=== PATIENT | female | born 1960 | race Caucasian/White ===

== ENCOUNTER → 2020-11-18 06:46 | Outpatient (CLI) | payer MEDICARE, SELFPAY ==
--- NOTE | 2020-11-18 | DI.MRI.S_ITS ---
PROCEDURE: MR HIP LT WO CON INDICATIONS: LEFT HIP PAIN TECHNIQUE: Noncontrast coronal T1 spin echo and STIR through the bony pelvis. Coronal and axial T2 fast spin echo with fat saturation, sagittal T1 spin echo, and oblique axial T2 fast spin echo with fat saturation through the hip. COMPARISON: None. FINDINGS: Image quality: Excellent. Bones and joints: There is a 57 mm diameter high STIR and low T1 signal intensity focus within the left intertrochanteric femur and left femoral neck. There is a 20 mm diameter low T1 and high STIR signal intensity focus within the right posterosuperior iliac wing. Within the right mid iliac wing posteriorly, there is a 10 mm diameter low T1 and high STIR signal intensity focus. There are 2 adjacent low T1/high STIR signal intensity foci within the left posterosuperior iliac wing, measuring roughly 7 mm diameter. There is a 20 mm diameter low T1 and high STIR signal intensity focus within the right superior femoral neck. No avascular necrosis of the femoral heads. The visualized lower lumbar spine appears normally aligned. Tendons and ligaments: The gluteus medius and minimus tendons appear intact, without associated muscle atrophy. The nearby proximal iliotibial band also appears intact. The iliopsoas tendon appears intact, without adjacent bursal fluid collections or evidence for impingement syndrome. The origin of the hamstring tendon is intact at the ischial tuberosity, as well as the associated sacrotuberous ligament. The straight and reflected heads of the rectus femoris muscle origin appear intact, as well as the conjoint tendon. The ligamentum teres appears intact where visualized. Labrum and cartilage: The acetabular labrum appears intact in the absence of intra-articular contrast. Cartilage surface of the femoral head appears of normal thickness. The alpha angle of the femur is within normal limits at less than 55 degrees. Soft tissues: Moderate T2 signal elevation within the soft tissues surrounding the left femoral neck is present, consistent with reactive soft tissue edema. Visualized muscles demonstrate normal bulk and internal signal. Quadratus femoris muscle demonstrates no internal edema to suggest ischiofemoral impingement. The proximal sciatic neurovascular bundle appears normal adjacent to the hamstring tendons. No free pelvic fluid. Bladder wall thickness is normal. Genitourinary structures and bowel loops appear normal where visualized. IMPRESSION: 1. Multifocal metastatic disease to the bony pelvis and bilateral hips. The largest of these lesions is within the left intertrochanteric femur and femoral neck which is at risk for pathological fracture. Whole-body bone scan is recommended to evaluate for other sites of bony metastatic disease. Dictated by: Sedrick Ryder M.D. on 11/18/2020 at 9:15 Approved by: Sedrick Ryder M.D. on 11/18/2020 at 9:24
[2020-11-18 08:02] LABS: Add Manual Diff / Slide Review NO; Basophils Absolute Auto 0 /uL (0-100); Basophils Percent Auto 0.7 % (0-2); Eosinophils Absolute Auto 100 /uL (0-450); Hemoglobin 12.3 g/dL (12.0-16.0); Lymphocytes Absolute Auto 800 /uL (1100-4500); Lymphocytes Percent Auto 27.5 % (25-40); Mean Corpuscular HGB Conc 33.2 % (30-36); Mean Corpuscular Hemoglobin 29.8 PG (26-34); Mean Corpuscular Volume 89.6 fL (80-100); Monocytes Absolute Auto 200 /uL (0-900); Monocytes Percent Auto 7.5 % (3-14); Neutrophils Absolute Auto 1800 /uL (1500-7000); Neutrophils Percent Auto 61.3 % (50-75); Red Blood Cell Count 4.13 X10^6/uL (4.0-5.2); Red Cell Distribution Width 14.2 % (11.6-14.8); White Blood Cell Count 2.9 X10^3/uL (4.5-11.0)
[2020-11-18 08:03] LABS: Platelet Count 50 X10^3/uL (150-400)
[2020-11-18 08:18] LABS: Erythrocyte Sedimentation Rate 23 MM/HR (0-20)
[2020-11-18 08:19] LABS: C-Reactive Protein Quant < 0.5 mg/dL (<1.0)
== END ==
PROVIDERS: PCP Family Medicine; Referring Provider Family Medicine; Visit Provider Orthopaedic Surgery Adult Reconstructive Orthopaedic Surgery
DX: C80.1 Malignant (primary) neoplasm, unspecified (principal); C79.51 Secondary malignant neoplasm of bone; M25.552 Pain in left hip; M79.605 Pain in left leg
CPT/HCPCS: 36415; 73721; 85025; 85651; 86140

== ENCOUNTER 2020-11-18 11:44 | Inpatient (IN) | payer MEDICARE, SELFPAY ==
[2020-11-18] VITALS (24 sets, daily range): BP systolic 121–197; BP diastolic 73–109; PULSE 71–86; RESP 8–20; TEMP 36.4–36.7; O2SAT 90–99; BMI 31.3
--- NOTE | 2020-11-18 | PATH_ITS ---
[facility] Accession Number: [id number] . 01 Material submitted: . PART A: hip - LEFT HIP PATHOLOGICAL LESIONS PART B: hip - LEFT HIP, METASTATIC LESION #2 . 01 Clinical history: . LEFT HIP PAIN 08/22 X21 DAYS . 01 Diagnosis: A. 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 . B. 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 MRV 11/24/2020 1523 Local . 01 Comment: A-B: Both parts show fragments of trabecular bone with fibrosis and metastatic poorly differentiated adenocarcinoma with signet ring features which is highlighted on an JIM cytokeratin stain on both parts A and B. Given the patient's prior history, a limited immunohistochemistry staining panel was performed on part B with the adenocarcinoma showing uniform nuclear positivity for GATA3 and ER, which supports a breast primary. Upon request, predictive markers can be performed if clinically indicated. Clinical correlation is recommended. . The results were reviewed with Dr. Saldaña on 11/24/2020. This case has been reviewed by Dr. Yanira Paulino. . * This test was developed and its performance characteristics determined by [facility]. It has not been cleared or approved by the U.S. Food and Drug Administration. The FDA has determined that such clearance or approval is not necessary. This test is used for clinical purposes. It should not be regarded as investigational or for research. . 01 Electronically signed: . Franky Stanford MD, Dermatopathologist NPI- [id number] . 01 Gross description: . A. The specimen is received in formalin, labeled hip pathological lesions and consists of multiple hutchins-pink fragments of soft tissue and bone measuring 2.5 x 2.0 x 0.5 cm in aggregate. The specimen is filtered and entirely submitted following decalcification in cassette A1. B. The specimen is received in formalin, labeled left hip metastatic lesion and consists of multiple hutchins-pink fragments of soft tissue and bone measuring 4.0 x 3.0 x 1.5 cm in aggregate. The specimen is entirely submitted following decalcification in cassettes B1-B2. ([id number]) /MRV 11/20/2020 1337 Local . 01 Pathologist provided ICD-10: C79.51 . 01 CPT . 319518, 298562, 977882, 581475, [id number], [id number] Specimen Comment: A courtesy copy of this report has been sent to [phone] Specimen Comment: [id number] Performed at: [address] [id number] MD Jarrod Cisneros MD Phone: [phone]
--- NOTE | 2020-11-18 | DI.RAD.S_ITS ---
PROCEDURE: XR FEMUR LT 1V INDICATIONS: HIP SURGERY TECHNIQUE: 4 views of the femur were acquired. COMPARISON: None. FINDINGS: Bones: No fractures or dislocations. No suspicious bony lesions. No avascular necrosis of femoral head. Soft tissues: No suspicious soft tissue calcifications or masses. IMPRESSION: No femoral fracture or dislocation. No suspicious bony lesion. No evidence of avascular necrosis. Dictated by: Jigar Knott M.D. on 11/18/2020 at 14:13 Approved by: Jigar Knott M.D. on 11/18/2020 at 14:13
--- NOTE | 2020-11-18 | DI.RAD.S_ITS ---
PROCEDURE: XR FEMUR LT MIN 2V INDICATIONS: IM NAIL (PROFALACTIC) TECHNIQUE: AP and lateral operative views of the femur were acquired. COMPARISON: [facility], [place], XR FEMUR LT 1V, 11/18/2020, 13:40. FINDINGS: Imaging utilized during surgery demonstrate placement of a left femoral intramedullary key. IMPRESSION: Operative imaging during left femoral CONCHITA key placement. No radiographic evidence of complications. Dictated by: Crispin Venegas M.D. on 11/18/2020 at 16:29 Approved by: Crispin Venegas M.D. on 11/18/2020 at 16:30
--- NOTE | 2020-11-18 12:53 | PM.CN ---
History of Present Illness Consult details Date Patient Seen: 11/18/20 Time Patient Seen: 12:53 Chief complaint: left hip pain 10 x21 days Reason for consult: Metastatic lesion left IT region with impending pathological fracture Narrative: Patient is a 60 year old female with a history of worsening left hip pain for the last severe weeks. She now has severe groin pain with movement of the hip or ambulation. She was seen in my clinic yesterday late afternoon. She has a history of breast cancer, but no history of metastatic disease. X-rays did not demonstrate significant OA of the hip and lumabr films did not demonstrate pathology that would explain patient's severe pain. Urgent MRI wsa ordered for the am. MRI completed this morning demonstrates multiple metastatic lesions to the pelvis and proximal femurs bilaterally. The lesion in the left IT region appears to be an impending pathological fracture. Based on size, placement and functional pain she meets criteria for urgent stabilization. Meds Home Medications and Allergies Home Medications Medication Instructions Recorded Confirmed Type FERROUS GLUCONATE (FERROUS 325 mg PO BID #90 02/14/13 Rx GLUCONATE~) FOLIC ACID 5 mg PO Q DAY #90 02/14/13 Rx Oxycodone/Acetaminophen (Percocet 0 tab PO Q4H PRN #30 03/15/13 Rx 5-325 MG Tablet) hydrochlorothiazide #0 03/15/13 History medroxyprogesterone 0 PO SEE INSTRUCTIONS #100 tab 08/01/13 Rx Allergies Allergy/AdvReac Type Severity Reaction Status Date / Time No Known Drug Allergies Allergy Verified 11/18/20 11:51 Exam Vital Signs (past 8 hours): - 11/18/20 12:00 Pulse Rate 78 Respiratory Rate 16 Blood Pressure 197/98 H Pulse Oximetry 98 Oxygen Delivery Method Room Air Narrative Exam Narrative: NV intact in LLE, TTP over the GT. Logroll positive, FADIR positive, MYA positive. Pain with weight bearing. Objective Imaging MRI - pelvis: My impression: Multiple lesions to the pelvis and proximal femur. Right hip region shows a small lesion at the superior aspect of the right femoral neck. The left hip demonstrates a large lesion to the IT region extending into the femoral neck without fracture. Radiologist's impression: IMPRESSION: 1. Multifocal metastatic disease to the bony pelvis and bilateral hips. The largest of these lesions is within the left intertrochanteric femur and femoral neck which is at risk for pathological fracture. Whole-body bone scan is recommended to evaluate for other sites of bony metastatic disease. Assessment & Plan Assessment & Plan narrative: Patient is a 60 yo F with a history of breast cancer. She has had a several week history of worsening left hip and groin pain. Worse with weight bearing. MRI demonstrates multiple lesions in the pelvis and the visualized protions of the proxiaml femurs. 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 Patient has a known history of breast cancer, actively undergoing treatment including chemotherapy and hormonal therapy. She has multiple metastatic lesions in the pelvis and femur. Plan will be for left long CMN with biopsy to confirm diagnosis. I spoke briefly with her oncologist Dr. Virgilio Bryan to update him on disease prgression. - NPO - NWB LLE - OCTOR for left long CMN - radiation-oncology referral post-op for radiation treatment of remaining lesions COVID-19 COVID-19 status: Negative Result date/Date tested (Pos, Neg/Pending): 11/18/20 Time Spent With Patient Time with patient: 25 - 35 minutes
[2020-11-18 12:55] LABS: COVID19 -Nasal RAPID Negative (Negative)
[2020-11-18] MEDS: HYDROMORPHONE 0.5 MG INJ IV (13:26)
[2020-11-18] MEDS: ONDANSETRON 4 MG/2 ML INJ IV (13:26)
[2020-11-18 13:36] LABS: Add Manual Diff / Slide Review NO; Basophils Absolute Auto 0 /uL (0-100); Basophils Percent Auto 0.7 % (0-2); Eosinophils Absolute Auto 100 /uL (0-450); Eosinophils Percent Auto 2.3 % (2-4); Hematocrit 37.6 % (36-46); Hemoglobin 12.5 g/dL (12.0-16.0); Lymphocytes Absolute Auto 800 /uL (1100-4500); Lymphocytes Percent Auto 23.9 % (25-40); Mean Corpuscular HGB Conc 33.3 % (30-36); Mean Corpuscular Hemoglobin 29.9 PG (26-34); Mean Corpuscular Volume 89.8 fL (80-100); Monocytes Absolute Auto 300 /uL (0-900); Monocytes Percent Auto 7.6 % (3-14); Neutrophils Absolute Auto 2200 /uL (1500-7000); Neutrophils Percent Auto 65.5 % (50-75); Platelet Count 48 X10^3/uL (150-400); Red Blood Cell Count 4.18 X10^6/uL (4.0-5.2); Red Cell Distribution Width 14.4 % (11.6-14.8); White Blood Cell Count 3.3 X10^3/uL (4.5-11.0)
[2020-11-18 13:40] LABS: Alanine Aminotransferase 23 IU/L (<35); Albumin Globulin Ratio 1.3 (1.0-2.8); Alkaline Phosphatase 140 U/L (38-126); Aspartate Aminotransferase 27 IU/L (14-36); Bilirubin Total 0.4 mg/dL (0.2-1.3); Blood Urea Nitrogen 21 mg/dL (7-17); Calcium 11.9 mg/dL (8.4-10.2); Carbon Dioxide 29 mmol/L (22-32); Chloride 106 mmol/L (98-107); Estimated Glomerular Filt Rate > 60.0 mL/min (>60); Globulin 3.2 g/dL (1.7-4.1); Glucose 259 mg/dL (70-100); HEMOLYSIS < 15 (0-50); Potassium 3.6 mmol/L (3.4-5.1); Sodium 138 mmol/L (137-145); Total Protein 7.2 g/dL (6.3-8.2)
--- NOTE | 2020-11-18 13:59 | ED_ITS ---
HPI - Extremity Problem General Chief complaint: Extremity Problem,Nontraumatic Stated complaint: left hip pain 08/22 x21 days Time Seen by Provider: 11/18/20 11:47 Source: patient Mode of arrival: Wheelchair Limitations: no limitations History of Present Illness HPI Narrative: 60-year-old woman with history of breast cancer presented to her orthopedic doctor complaining of hip pain persistent and worsening. MRI was done as an outpatient this morning metastatic disease to the bony pelvis and hips. Largest of these is within the left intratrochanteric femur and femoral neck and at significant risk for pathologic fracture. Patient was walked over to the emergency department by her orthopedic surgeon who requested further medical evaluation, admission to the medicine service and anticipation of pinning of her hip to prevent pathologic fracture. Preop labs and workup were ordered. Patient was taken directly from the ER to the operating room. She was not seen or evaluated specifically by me. Related Data Home Medications Medication Instructions Recorded Confirmed hydrochlorothiazide #0 03/15/13 Previous Rx's Medication Instructions Recorded FERROUS GLUCONATE (FERROUS 325 mg PO BID #90 02/14/13 GLUCONATE~) FOLIC ACID 5 mg PO Q DAY #90 02/14/13 Oxycodone/Acetaminophen (Percocet 0 tab PO Q4H PRN #30 03/15/13 5-325 MG Tablet) medroxyprogesterone 0 PO SEE INSTRUCTIONS #100 tab 08/01/13 Allergies Allergy/AdvReac Type Severity Reaction Status Date / Time No Known Drug Allergies Allergy Verified 11/18/20 11:51 Patient History Surgical History (Updated 03/13/18 @ 05:44 by Conversion Provider) Status post surgery (03/15/13) Social History household members: spouse Smoking Status: Never smoker Smoking Status: Never smoker alcohol intake frequency: 0-2 drinks per day Substance Use Type: does not use Exam Narrative Exam Narrative: Patient was taken directly from the ER to the operating room. She was not seen or evaluated specifically by me. Initial Vital Signs Initial Vital Signs: Vital Signs Pulse Rate 78 11/18/20 12:00 Respiratory Rate 16 11/18/20 12:00 Blood Pressure 197/98 H 11/18/20 12:00 Pulse Oximetry 98 11/18/20 12:00 Course Orders Ordered: ED Orders 11/18/20 11:45 COVID19 Stat 11/18/20 11:48 EKG-12 Lead Stat 11/18/20 13:20 Complete Blood Count AUTO DIFF Stat Comprehensive Metabolic Panel Stat 11/18/20 14:00 XR C-arm up to 60 min Stat 11/18/20 14:02 Consult to Anesthesiology Routine Acetaminophen (Acetaminophen 325 Mg Tablet) 650 mg PO PACUNOW PRN PRN Reason: Pain, Mild (1-3) Fentanyl (Fentanyl 100 Mcg/2 Ml Inj) 0 mcg IV Q5M PRN PRN Reason: Pain, Moderate (4-6) Last Admin: 11/18/20 16:53 Dose: 50 mcg Documented by: CTR.[email or web address] Admin: 11/18/20 16:45 Dose: 50 mcg Documented by: CTR.HUSSAIN Hydromorphone HCl (Hydromorphone 0.5 Mg Inj) 0.5 mg IV Q15MIN PRN PRN Reason: Pain, Last Admin: 11/18/20 13:26 Dose: 0.5 mg Documented by: BENITO Lactated Ringer's (Lactated Ringers) 1,000 mls @ 42 mls/hr IV CONT BRENDA Last Infusion: 11/18/20 17:47 Dose: 0 mls/hr Documented by: CTR.[email or web address] Admin: 11/18/20 16:39 Dose: 42 mls/hr Documented by: CTR.[email or web address] Infusion: 11/18/20 16:39 Dose: 0 mls/hr Documented by: CTR.[email or web address] Admin: 11/18/20 14:16 Dose: 42 mls/hr Documented by: JEYSON Ondansetron HCl (Ondansetron 4 Mg/2 Ml Inj) 4 mg IV NOW PRN PRN Reason: Nausea And Vomiting Oxycodone/Acetaminophen (Oxycodone/Acetaminophen 5/325 Tablet) 1 tab PO PACUNOW PRN PRN Reason: Mild or Moderate Pain Discontinued Medications Bupivacaine HCl/Epinephrine Bitart (Bupivacaine 0.5% W/ Epi (Pf) 30 Ml Vial) 30 ml INJ NOW ONE Stop: 11/18/20 15:14 Last Admin: 11/18/20 15:13 Dose: 30 ml Documented by: MANDY Cefazolin Sodium/Dextrose (Ancef) 2 gm in 100 mls @ 200 mls/hr IV NOW ONE Stop: 11/18/20 14:31 Last Infusion: 11/18/20 14:35 Dose: 0 mls/hr Documented by: Admin: 11/18/20 14:25 Dose: 200 mls/hr Documented by: PRIYA Insulin Human Regular (Insulin Regular 100 Unit/Ml 3 Ml Vial) 5 unit SUBCUT NOW ONE Stop: 11/18/20 14:48 Last Admin: 11/18/20 16:30 Dose: 5 unit Documented by: GIRMA Cosigned by: TARA Ondansetron HCl (Ondansetron 4 Mg/2 Ml Inj) 4 mg IV NOW ONE Stop: 11/18/20 11:48 Last Admin: 11/18/20 13:26 Dose: 4 mg Documented by: BENITO Vital Signs Vital signs: Vital Signs - 8 hr 11/18/20 12:00 11/18/20 13:38 11/18/20 14:06 Temperature 98.1 F Pulse Rate 78 81 83 Respiratory Rate 16 18 20 Blood Pressure 197/98 H 192/98 H 194/99 H Pulse Oximetry 98 99 91 11/18/20 16:20 11/18/20 16:25 11/18/20 16:30 Temperature 97.6 F Pulse Rate 71 71 73 Respiratory Rate 10 L 10 L 12 Blood Pressure 134/73 121/81 155/91 H Pulse Oximetry 97 97 11/18/20 16:35 11/18/20 16:40 11/18/20 16:45 Temperature 97.8 F Pulse Rate 73 74 73 Respiratory Rate 12 12 12 Blood Pressure 170/92 H 158/92 H 162/97 H Pulse Oximetry 96 97 97 11/18/20 16:50 11/18/20 16:55 11/18/20 17:00 Temperature 97.7 F Pulse Rate 71 74 74 Respiratory Rate 10 L 8 L 10 L Blood Pressure 166/94 H 139/77 133/74 Pulse Oximetry 97 97 97 11/18/20 17:05 11/18/20 17:10 11/18/20 17:15 Temperature 97.6 F Pulse Rate 76 80 77 Respiratory Rate 12 14 12 Blood Pressure 144/85 H 129/81 155/80 H Pulse Oximetry 97 96 95 11/18/20 17:20 11/18/20 17:25 Temperature Pulse Rate 77 78 Respiratory Rate 10 L 12 Blood Pressure 158/79 H 154/80 H Pulse Oximetry 95 94 MDM - Extremity (Nontraumatic) Lab Data Attestation: I reviewed the patient's lab results. Result diagrams: 11/18/20 13:20 11/18/20 13:20 Labs: Lab Results 11/18/20 11/18/20 11/18/20 Range/Units 11:45 13:20 13:20 WBC 3.3 L (4.5-11.0) X10^3/uL RBC 4.18 (4.0-5.2) X10^6/uL Hgb 12.5 (12.0-16.0) g/dL Hct 37.6 (36-46) % MCV 89.8 (80-100) fL MCH 29.9 (26-34) PG MCHC 33.3 (30-36) % RDW 14.4 (11.6-14.8) % Plt Count 48 L (150-400) X10^3/uL Neut % (Auto) 65.5 (50-75) % Lymph % (Auto) 23.9 L (25-40) % Quay % (Auto) 7.6 (3-14) % Eos % (Auto) 2.3 (2-4) % Baso % (Auto) 0.7 (0-2) % Neut # (Auto) 2200 (6869-1240) /uL Lymph # (Auto) 800 L (8335-9578) /uL Quay # (Auto) 300 (0-900) /uL Eos # (Auto) 100 (0-450) /uL Baso # (Auto) 0 (0-100) /uL Sodium 138 (137-145) mmol/L Potassium 3.6 (3.4-5.1) mmol/L Chloride 106 (98-107) mmol/L Carbon Dioxide 29 (22-32) mmol/L BUN 21 H (7-17) mg/dL Creatinine 0.84 (0.52-1.04) mg/dL Estimated GFR > 60.0 (>60) mL/min BUN/Creatinine Ratio 25.0 H (6-22) Glucose 259 H (70-100) mg/dL Calcium 11.9 H (8.4-10.2) mg/dL Total Bilirubin 0.4 (0.2-1.3) mg/dL AST 27 (14-36) IU/L ALT 23 (<35) IU/L Alkaline Phosphatase 140 H (38-126) U/L Total Protein 7.2 (6.3-8.2) g/dL Albumin 4.0 (3.5-5.0) g/dL Globulin 3.2 (1.7-4.1) g/dL Albumin/Globulin Ratio 1.3 (1.0-2.8) SARS-CoV-2 (PCR) Negative (Negative) Imaging Data Hip MR: Radiologist's Impression: FINDINGS: Image quality: Excellent. Bones and joints: There is a 57 mm diameter high STIR and low T1 signal intensity focus within the left intertrochanteric femur and left femoral neck. There is a 20 mm diameter low T1 and high STIR signal intensity focus within the right posterosuperior iliac wing. Within the right mid iliac wing posteriorly, there is a 10 mm diameter low T1 and high STIR signal intensity focus. There are 2 adjacent low T1/high STIR signal intensity foci within the left posterosuperior iliac wing, measuring roughly 7 mm diameter. There is a 20 mm diameter low T1 and high STIR signal intensity focus within the right superior femoral neck. No avascular necrosis of the femoral heads. The visualized lower lumbar spine appears normally aligned. Tendons and ligaments: The gluteus medius and minimus tendons appear intact, without associated muscle atrophy. The nearby proximal iliotibial band also appears intact. The iliopsoas tendon appears intact, without adjacent bursal fluid collections or evidence for impingement syndrome. The origin of the hamstring tendon is intact at the ischial tuberosity, as well as the associated sacrotuberous ligament. The straight and reflected heads of the rectus femoris muscle origin appear intact, as well as the conjoint tendon. The ligamentum teres appears intact where visualized. Labrum and cartilage: The acetabular labrum appears intact in the absence of intra-articular contrast. Cartilage surface of the femoral head appears of normal thickness. The alpha angle of the femur is within normal limits at less than 55 degrees. Soft tissues: Moderate T2 signal elevation within the soft tissues surrounding the left femoral neck is present, consistent with reactive soft tissue edema. Visualized muscles demonstrate normal bulk and internal signal. Quadratus femoris muscle demonstrates no internal edema to suggest ischiofemoral impingement. The proximal sciatic neurovascular bundle appears normal adjacent to the hamstring tendons. No free pelvic fluid. Bladder wall thickness is normal. Genitourinary structures and bowel loops appear normal where visualized. IMPRESSION: 1. Multifocal metastatic disease to the bony pelvis and bilateral hips. The largest of these lesions is within the left intertrochanteric femur and femoral neck which is at risk for pathological fracture. Whole-body bone scan is recommended to evaluate for other sites of bony metastatic disease. Dictated by: Sedrick Ryder M.D. on 11/18/2020 at 9:15 MDM Narrative Medical decision making narrative: 60-year-old woman with newly diagnosed widely metastatic disease presumably breast cancer with impending pathologic hip fracture. Slightly elevated alkaline phosphatase. Renal function is ap propriate. Will be admitted to the medicine service with further inpatient oncology workup as directed by them and anticipation of surgical intervention for the hip lesion Preop labs and workup were ordered. Patient was taken directly from the ER to the operating room. She was not seen or evaluated specifically by me. Discharge Plan Departure Patient Disposition: Admitted As Inpatient Clinical Impression: Multiple lesions of metastatic malignancy
[2020-11-18] MEDS: LACTATED RINGERS 1,000 ML 42 ML IV ×2 (14:16→16:39)
--- NOTE | 2020-11-18 14:17 | PM.PREOP ---
Pre-operative Note COVID-19 COVID-19 status: Negative Result date/Date tested (Pos, Neg/Pending): 11/18/20 Interval Note History & Physical reviewed/Exam performed by Physician: Yes Changes to H&P: No H&P completed within 30 days and has changed as indicated here:: Informed consent was reviewed and signed by patient. Risks and benefits were discussed including but not limited to the following risks: DVT, PE, infection, iatrogenic injury, continued pain, need for future surgery, , etc. Patient demonstrates understanding of the risks and benefits and wishes to proceed with left long CMN for impending pathological fracture (mirel's = 11) of the left IT region secondary to metastatic disease.
[2020-11-18] MEDS: CEFAZOLIN 2 GM/100 ML FROZ.PIGGY IV ×2 (14:25→22:55)
--- NOTE | 2020-11-18 15:05 | SUR.OPER ---
Supine on padded [place] table with left leg secured in padded positioning boots and suspended in positioning spar. Non-operative left in well leg cole padded with gel pad and secured with kerlix. Head on one pillow. Arm on non-operative side secured on padded armboard <90 degrees abduction. Arm on operative side padded and resting across chest then secured with tape over sheet. Padded perineal post in place per surgeon.
[2020-11-18] MEDS: BUPIVACAINE 0.5% W/ EPI (PF) 30 ML VIAL INJ (15:13)
--- NOTE | 2020-11-18 16:20 | PM.OP.1 ---
Operative Date/Time/Diagnoses Date of procedure: 11/18/20 Time of procedure: 16:20 Pre-op diagnosis: left intertrochanteric metastatic lesion, impending fracture Post-op diagnosis: same Procedure & Clinicians Procedure: left long cephalomedullary nail Same procedure as scheduled: Yes Indications: Metastatic lesion to the left intertrochanteric femur region with Meril's score of 11 Surgeon: Baltazar Saldaña Click Yes if Unassisted: Yes Anesthesia Type: General Operative Notes Findings: Metastatic lesion to the left intertrochanteric femur region without fracture Closure Type: primary Specimen(s): other (2x tissue samples of lesion) Prosthetic devices, grafts, tissues, transplants, or devices: Jacinto and nephew inter hutchins nail 38 cm long by 11.5 mm wide 90 mm lag screw 85 mm compression screw 37.5 mm distal interlocking bolt Estimated Blood Loss (mL): 100 Procedure in detail: Patient was met in the preoperative holding area where the site and side of surgery marked by . Informed consent was reviewed including the risk of surgery risks include DVT, PE, iatrogenic fracture, iatrogenic injury, need for future surgeries, incomplete relief of symptoms, infection, wound healing problems, , etc. patient demonstrates understanding of the risks and benefits and wishes to proceed with a left long cephalomedullary nail for prophylactic fixation of the impending pathological fracture of her left intertrochanteric femur. Patient was then placed under general anesthesia transferred on the [place] table full and her right lower extremity was placed in a well leg cole. Her left foot was then well padded and placed in [place] table boots. Fluoroscopy was brought in to get AP and lateral views the left hip was then prepped and draped in normal sterile fashion. A 7 cm long incision made along the long axis the femur approximately 710 cm proximal to the tip of the greater trochanter was made in the skin with a 10. Blade followed by dissection of the superior gluteal fascia with Boswell scissors. A 30 tip guidewire was then placed on the tip of the greater trochanter and fluoroscopic images were taken in the AP and lateral views verifying our position. This was then malleted into the bone and a proximal Reamer was then used to swab the guidewire down to the level of the lesser trochanter this was then removed and a ball-tipped guidewire was then placed inside the femur down to the level of the knee. This was also verified on fluoroscopic imaging. We then began reaming with a size 10 mm Reamer and up sizing by 1 until we got to 13 mm Reamer. We then selected 11.5 mm width nail. The measuring guide was then placed over the wire and measured to a 40 cm length selected a 30 cm long nail. 11.5 mm x 30 cm long intra hutchins left nail was then placed over the guidewire and fluoroscopy was used to determine the depth of the nail placement. The guidewire was then removed and the proximal jig was used to place a threaded tip guidewire into the head for the lag screw. This was measured to 90 mm of length because we would not need compression we selected a 90 mm x 85 mm screw set. We then drilled for the compression screw and placed in the anti rotation bar. We then drilled for the lag screw to 90 mm of depth verifying on fluoroscopic imaging that we did not perforate. The lag screw was then placed underneath fluoroscopic guidance followed by placement of the compression screw. Again verified on the AP and lateral views. Then turned our attention to the distal interlock. This was placed using perfect circles technique. A 37.5 mm screw was placed. We then turned our attention back to the proximal side and locked the screw construct for to prevent it from sliding. The proximal jig was then removed and final fluoroscopic images including AP and lateral of the knee as well as the hip was then obtained. All wounds were then thoroughly irrigated with normal saline the deep fascia was then closed using 1. Vicryl in inferior interrupted fashion followed by 2 Vicryl in the subcutaneous layer followed by kristy on skin followed by Aquacel dressings. Complications: none Post-operative Condition: stable Disposition: PACU Plan for aftercare: 24 hours post-op abx, WBAT LLE, 6 weeks DVT prophyalxis, referral for radiation oncology, follow up pathology specimen
[2020-11-18] MEDS: INSULIN REGULAR 100 UNIT/ML 3 ML VIAL SUBCUT (16:30)
[2020-11-18] MEDS: fentaNYL 100 MCG/2 ML INJ IV ×2 (16:45→16:53)
[2020-11-18] MEDS: LACTATED RINGERS 1,000 ML 125 ML IV (18:53)
[2020-11-18] MEDS: OXYCODONE IR 10 MG TABLET PO (18:53)
[2020-11-18] MEDS: HYDROMORPHONE 0.5 MG INJ 0.2 MG IV ×2 (19:16→21:01)
[2020-11-18 19:37] LABS: Hematocrit 34.3 % (36-46); Hemoglobin 11.4 g/dL (12.0-16.0)
[2020-11-18 19:57] LABS: Hemoglobin A1C% w Est Avg Glu 8.8 % (4.0-6.0)
[2020-11-18 20:22] LABS: Magnesium 1.5 mg/dL (1.6-2.3); Phosphorous 3.4 mg/dL (2.5-4.5)
[2020-11-18] MEDS: SODIUM CHLORIDE 0.9% 1,000 ML 125 ML IV (20:57)
[2020-11-18] MEDS: DOCUSATE 100 MG CAPSULE PO (21:01)
[2020-11-18] MEDS: ACETAMINOPHEN 325 MG TABLET 975 MG PO (21:01)
[2020-11-18] MEDS: INSULIN ASPART 100 UNIT/ML INSULN PEN SUBCUT (21:28)
--- NOTE | 2020-11-18 21:37 | PM.HP.1 ---
History of Present Illness History of Present Illness Date Patient Seen: 11/18/20 Time Patient Seen: 20:18 Chief complaint: left hip pain 08/22 x21 days Narrative: Ms. Jacob Sheriff is a 60-year-old female with a past medical history of breast cancer having undergone chemo therapy, hormone therapy and radiation therapy, hypertension and ocular muscle imbalance who presents to the ER with hip pain. The patient reports that she had hip pain onset approximately 3 weeks ago that has been progressive in severity to the point she presents to Dr. Astudillo's office yesterday where pelvic and hip films found no explanation for etiology the patient's severe pain. MRI was ordered for this morning where upon reading the patient is found to have metastatic lesion read as and in pending pathologic fracture. She has had no prior known metastatic lesions. The patient was directed to the ER for further evaluation and hospital admission with plan for intramedullary nailing. The patient reports the pain is worse when ambulating has been taking Robaxin and tramadol for her pain with minimal benefit. The patient reports no constitutional symptoms of fevers or chills, headaches or dizziness. She has had no complaints of runny nose or nasal congestion. She denies chest pain or palpitations had no shortness of breath cough or wheezing. She denies abdominal pain, nausea vomiting, diarrhea or constipation. She has an infusion port in the right upper chest and reports her last chemotherapy and radiation therapy were approximately 2 months ago. Upon arrival to the ER the patient's temperature 98.1?, heart rate of 78, blood pressure 197/98, respirations 16 saturating 98% on room air. MR reading finds multifocal metastatic disease the pelvis and bilateral hips, largest lesion the left intertrochanteric femur and femoral neck. Twelve lead EKG is obtained finding a sinus rhythm at rate of 80 with left axis deviation and right bundle branch block with T-wave inversion and lead 3 and AVF. Initial laboratory findings reveal a white count of 3.3 hemoglobin of 12.5 and thrombocytopenia 48. Electrolytes within normal limits and has a BUN of 21 and creatinine 0.84. Her nonfasting glucose is 259. She has an elevated calcium at 11.9. She has a total bilirubin 0.4, AST of 27, ALT of 23 and elevated alkaline phosphatase at 140. COVID screening is negative. The patient is admitted to the hospitalist service with Dr. Saldaña as digital marketing consultant who is taking the patient directly to the OR for surgery. Patient History Medical History (Updated 11/18/20 @ 21:54 by DARLENE Moss) Breast cancer Imbalance of muscle of eye Multiple lesions of metastatic malignancy Surgical History (Updated 11/18/20 @ 21:54 by DARLENE Moss) History of eye surgery History of lumpectomy History of total abdominal hysterectomy History of vascular access device Status post surgery (03/15/13) Family & Social History Family History (Updated 11/18/20 @ 22:52 by DARLENE Moss) Father No significant medical problems Mother Stroke Diabetes mellitus Daughter Diabetes mellitus Social History: household members spouse Prior Living Arrangements House Safety & Behavioral: Feels Safe in Current Yes Environment Been Physically Hurt or No Threatened By a Person Suicidal Ideation Description None Suicide Plan Description No Plan Tobacco & Substance use: Smoking Status Never smoker alcohol intake current alcohol intake frequency 0-2 drinks per day Substance Use Type does not use Meds Home Medications and Allergies Home Medications Medication Instructions Recorded Confirmed Type hydrochlorothiazide 12.5 mg DAILY PRN #0 03/15/13 11/18/20 History lisinopril 20 mg PO BID 11/18/20 11/18/20 History methocarbamol 500 mg PO TID PRN 11/18/20 11/18/20 History tramadol 50 mg PO Q6H PRN 11/18/20 11/18/20 History Allergies Allergy/AdvReac Type Severity Reaction Status Date / Time No Known Drug Allergies Allergy Verified 11/18/20 11:51 Review of Systems Review of Systems ROS: Yes All systems reviewed with the patient and are negative except as otherwise documented Exam Vital Signs (past 8 hours): - 11/18/20 13:38 11/18/20 14:06 11/18/20 16:20 Temperature 98.1 F 97.6 F Pulse Rate 81 83 71 Respiratory Rate 18 20 10 L Blood Pressure 192/98 H 194/99 H 134/73 Pulse Oximetry 99 91 97 11/18/20 16:25 11/18/20 16:30 11/18/20 16:35 Temperature 97.8 F Pulse Rate 71 73 73 Respiratory Rate 10 L 12 12 Blood Pressure 121/81 155/91 H 170/92 H Pulse Oximetry 97 96 11/18/20 16:40 11/18/20 16:45 11/18/20 16:50 Temperature Pulse Rate 74 73 71 Respiratory Rate 12 12 10 L Blood Pressure 158/92 H 162/97 H 166/94 H Pulse Oximetry 97 97 97 11/18/20 16:55 11/18/20 17:00 11/18/20 17:05 Temperature 97.7 F Pulse Rate 74 74 76 Respiratory Rate 8 L 10 L 12 Blood Pressure 139/77 133/74 144/85 H Pulse Oximetry 97 97 97 11/18/20 17:10 11/18/20 17:15 11/18/20 17:20 Temperature 97.6 F Pulse Rate 80 77 77 Respiratory Rate 14 12 10 L Blood Pressure 129/81 155/80 H 158/79 H Pulse Oximetry 96 95 95 11/18/20 17:25 11/18/20 17:40 11/18/20 18:10 Temperature 97.8 F 98.0 F Pulse Rate 78 78 81 Respiratory Rate 12 16 16 Blood Pressure 154/80 H 158/96 H 138/77 Pulse Oximetry 94 96 11/18/20 18:40 11/18/20 19:40 11/18/20 20:40 Temperature 98.1 F 97.8 F 98.0 F Pulse Rate 77 86 86 Respiratory Rate 16 17 17 Blood Pressure 139/91 H 166/109 H 163/93 H Pulse Oximetry 98 98 95 11/18/20 21:04 11/18/20 21:05 Temperature Pulse Rate Respiratory Rate Blood Pressure Pulse Oximetry 90 L 94 Oxygen Delivery Method Nasal Cannula Oxygen Flow Rate 2 Narrative Exam Narrative: GENERAL APPEARANCE: well developed, obese female who is in drowsy and in moderate pain HEENT: Normocephalic, PERRLA, conjunctiva clear, sclera is anicteric, eye asymmetry, dysconjugate gaze with right eye esotropia, mucous membranes are moist and pink. NECK/THYROID: neck supple, no JVD, no thyromegaly, trachea midline. LYMPH NODES: no cervical or supraclavicular lymphadenopathy. SKIN: [place], warm and dry, no visible lesions, rashes, ulcerations or petechiae. HEART: regular rate and rhythm, S1-S2, no murmur, no rubs or gallops, brisk capillary refill, no edema LUNGS: clear to auscultation bilaterally, no coarseness crackles or wheezing, no cough present CHEST: Symmetrical movement, no accessory muscle use, good tidal volume. ABDOMEN: Soft, no distention, no abdominal tenderness, no guarding or peritoneal signs, no organomegaly, no flank or suprapubic tenderness, active bowel tones. BACK: Normal curvature, nontender to palpation, no CVA tenderness on percussion EXTREMITIES: Surgical dressing left hip and lateral distal femur clean dry and intact, distal CMS intact, no deformities or joint effusions. NEUROLOGIC: AAO to person place and situation, no focal neurologic deficits, sensation intact to light touch, hearing grossly normal to speech. PSYCH: Drowsy postoperatively, slow to respond to questions, cooperative. Objective Labs Result Diagrams: 11/18/20 19:32 11/18/20 13:20 Labs: Laboratory Results - last 24 hr 11/18/20 11/18/20 11/18/20 11:45 13:20 13:20 WBC 3.3 L RBC 4.18 Hgb 12.5 Hct 37.6 MCV 89.8 MCH 29.9 MCHC 33.3 RDW 14.4 Plt Count 48 L Neut % (Auto) 65.5 Lymph % (Auto) 23.9 L [place] % (Auto) 7.6 Eos % (Auto) 2.3 Baso % (Auto) 0.7 Neut # (Auto) 2200 Lymph # (Auto) 800 L [place] # (Auto) 300 Eos # (Auto) 100 Baso # (Auto) 0 Sodium 138 Potassium 3.6 Chloride 106 Carbon Dioxide 29 BUN 21 H Creatinine 0.84 Estimated GFR > 60.0 BUN/Creatinine Ratio 25.0 H Glucose 259 H Hemoglobin A1c Calcium 11.9 H Phosphorus Magnesium Total Bilirubin 0.4 AST 27 ALT 23 Alkaline Phosphatase 140 H Total Protein 7.2 Albumin 4.0 Globulin 3.2 Albumin/Globulin Ratio 1.3 SARS-CoV-2 (PCR) Negative 11/18/20 11/18/20 11/18/20 19:32 19:32 19:32 WBC RBC Hgb 11.4 L Hct 34.3 L MCV MCH MCHC RDW Plt Count Neut % (Auto) Lymph % (Auto) [place] % (Auto) Eos % (Auto) Baso % (Auto) Neut # (Auto) Lymph # (Auto) [place] # (Auto) Eos # (Auto) Baso # (Auto) Sodium Potassium Chloride Carbon Dioxide BUN Creatinine Estimated GFR BUN/Creatinine Ratio Glucose Hemoglobin A1c 8.8 H Calcium Phosphorus 3.4 Magnesium 1.5 L Total Bilirubin AST ALT Alkaline Phosphatase Total Protein Albumin Globulin Albumin/Globulin Ratio SARS-CoV-2 (PCR) Assessment & Plan Assessment & Plan narrative: This is a 60-year-old female patient with a known history of breast cancer having received chemo therapy hormone therapy and radiation therapy who presents to the orthopedist's office for right hip pain increasing over 3 weeks developing severe groin pain that is worsened with ambulation. 1. Metastatic left intertrochanteric femur lesion, acute, present on admission, active. -patient with progressive left hip pain over 3 week. Radiating to the groin worsening with ambulation. -plain film imaging of the hip and pelvis finds no etiology for the pain therefore MRI is obtained which finds multiple metastatic disease in the pelvis and bilateral hips largest lesion in the left intertrochanteric femur and femoral neck. -orthopedics direct the patient to the ER due to the lytic lesion in risk of impending pathologic fracture with plans to take the patient to the OR for intramedullary nailing. -Dr. Saldaña has taken the patient to the OR and is status post cephalomedullary nail on the left femur. -postoperative orthopedic care per the orthopedic team. 2. Metastatic breast cancer, chronic -patient states he was diagnosed with breast cancer approximately 3 and half years ago and has undergone chemo hormone and radiation therapies with last treatment being 2 months ago. -patient receives her cancer care at [facility]. -will obtain medical records. 3. Hyperglycemia without diagnosis of diabetes, present on admission, active. -patient without history of diabetes and no medical therapy for hyperglycemia. Blood sugar on admission labs is 259. -obtained a hemoglobin A1c which is found to be 8.8 consistent with an approximate average blood sugar of 200. -ordered fingerstick blood sugars a.c. and hs with correctional insulin low-dose scale. -diet changed from regular diet to small consistent carbohydrate to enhance glycemic control and reduce risk for infection. 4. Mild hypercalcemia, acute versus chronic, present on admission, active. -hypercalcemia likely multifactorial, chronic related malignancy, lytic bone lesions as well as exacerbated by hyperglycemia and relative dehydration evidence by elevated BUN and BUN creatinine ratio. -patient is received from the OR with lactated Ringer's at 125 cc/hour which is changed to normal saline at 125 cc/hour. -considering mild elevation of calcium will re-evaluate on chemistries in morning following hydration. 5. Abnormal EKG, acute versus chronic, present on admission, active. -patient denies complaints of chest pain or palpitations, has risk factors including hypertension, diabetes not previously diagnosed and obesity. -preoperative 12 lead EKG reveals sinus rhythm at rate of 80 with a right bundle branch block left axis shift with notation of inverted T-waves in lead 3 and AVF. -repeated 12 lead EKG postoperatively an EKG is unchanged. -patient placed on cardiac telemetry. -will check troponin. VTE prophylaxis: Contraindicated due to thrombocytopenia. IV fluid: Normal saline 125 cc/hour Diet: Small consistent carbohydrate Code status: DNR, the patient designates her to be surrogate decision maker. The patient is admitted to the hospital due to the risk for impending pathologic fracture and surgical intervention prevent complication adverse events. The patient is also newly diagnosed diabetic and is admitted as an inpatient with expected length of stay to be greater than 2 midnights. Scores GCS [place] coma scale eye opening: Spontaneous [place] coma scale verbal response: Confused (Seen postoperatively waking from sedation.) Connie coma scale motor response: Obey commands Connie coma scale total score: 14 Quality VTE Deep Vein Thrombosis/Pulmonary Embolism Present on Admission: No
[2020-11-18] MEDS: MAGNESIUM OXIDE 400 MG TABLET PO (22:55)
[2020-11-18 23:37] LABS: Troponin I < 0.012 ng/mL (0.01-0.034)
[2020-11-19] VITALS (8 sets, daily range): BP systolic 120–175; BP diastolic 71–97; PULSE 84–105; RESP 14–17; TEMP 36.2–37; O2SAT 90–99
[2020-11-19] MEDS: OXYCODONE IR 10 MG TABLET PO ×4 (04:54→21:37)
[2020-11-19] MEDS: lisinopriL 20 MG TABLET PO ×2 (05:05→21:36)
[2020-11-19] MEDS: HYDROMORPHONE 0.5 MG INJ IV ×2 (05:08→11:06)
[2020-11-19] MEDS: SODIUM CHLORIDE 0.9% FLUSH 10 ML IV (06:20)
[2020-11-19] MEDS: SODIUM CHLORIDE 0.9% 1,000 ML 100 ML IV ×2 (06:21→20:06)
[2020-11-19 06:35] LABS: Basophils Absolute Auto 0 /uL (0-100); Basophils Percent Auto 0.3 % (0-2); Eosinophils Absolute Auto 0 /uL (0-450); Eosinophils Percent Auto 0.4 % (2-4); Hematocrit 30.3 % (36-46); Hemoglobin 10.2 g/dL (12.0-16.0); Lymphocytes Absolute Auto 700 /uL (1100-4500); Mean Corpuscular HGB Conc 33.6 % (30-36); Mean Corpuscular Hemoglobin 30.1 PG (26-34); Mean Corpuscular Volume 89.7 fL (80-100); Monocytes Absolute Auto 400 /uL (0-900); Monocytes Percent Auto 9.3 % (3-14); Neutrophils Absolute Auto 3200 /uL (1500-7000); Platelet Count 41 X10^3/uL (150-400); Red Blood Cell Count 3.38 X10^6/uL (4.0-5.2); Red Cell Distribution Width 14.6 % (11.6-14.8); White Blood Cell Count 4.3 X10^3/uL (4.5-11.0)
[2020-11-19 06:38] LABS: Add Manual Diff / Slide Review SLIDE REVIEW; Alanine Aminotransferase 20 IU/L (<35); Albumin 3.2 g/dL (3.5-5.0); Albumin Globulin Ratio 1.1 (1.0-2.8); Alkaline Phosphatase 91 U/L (38-126); Aspartate Aminotransferase 25 IU/L (14-36); BUN Creatinine Ratio 24.7 (6-22); Bilirubin Total 0.7 mg/dL (0.2-1.3); Bilirubin Unconjugated 0.6 mg/dL (0.0-1.1); Blood Urea Nitrogen 21 mg/dL (7-17); Calcium 10.4 mg/dL (8.4-10.2); Carbon Dioxide 30 mmol/L (22-32); Chloride 106 mmol/L (98-107); Estimated Glomerular Filt Rate > 60.0 mL/min (>60); Globulin 2.8 g/dL (1.7-4.1); Glucose 234 mg/dL (70-100); HEMOLYSIS < 15 (0-50); Magnesium 1.5 mg/dL (1.6-2.3); Potassium 3.8 mmol/L (3.4-5.1); Sodium 137 mmol/L (137-145)
[2020-11-19] MEDS: CEFAZOLIN 2 GM/100 ML FROZ.PIGGY IV (06:45)
[2020-11-19 07:28] LABS: TSH w/ Reflex to FT4 0.75 uIU/mL (0.47-4.68)
[2020-11-19 07:31] LABS: Platelet Estimate Decreased on smear; RBC Morphology Normal Morphology
--- NOTE | 2020-11-19 07:38 | DI.NM.S_ITS ---
PROCEDURE: NM BONE SCAN WHOLE BODY RADIOPHARMACEUTICAL: 19.80 mCi Tc-99m MDP IV. INDICATIONS: metastatic breast cancer TECHNIQUE: Delayed whole-body scintigrams were obtained approximately 3-4 hours after intravenous injection of radiotracer. Anterior and posterior views were acquired from vertex to feet. Additional left and right oblique views of the abdomen and pelvis were obtained. COMPARISON: [facility], MR, MR HIP LT WO CON, 11/18/2020, 7:47. [facility], CR, XR FEMUR LT MIN 2V, 11/18/2020, 14:49. [facility], CR, XR FEMUR LT 1V, 11/18/2020, 13:40. FINDINGS: 3 consecutive anterior left ribs have increased anterior radiopharmaceutical uptake consistent with 3 contiguous rib fractures. This involves approximately the left 5th, 6th, and 7th ribs. The 6th rib has an additional area of increased uptake which may potentially represent a segmental fracture or a metastatic lesion. There is increased uptake in the left femoral neck which is an area of unknown metastatic lesion by MRI. There is central lucency related to the femoral prosthesis. There is a mid shaft right femoral lesion consistent with increased uptake with a metastatic lesion. There is a focal lateral aspect right femoral neck area of increased uptake also consistent with metastatic lesion seen by MRI. Vague increased uptake in the distal diametaphyseal region of the left femur may be related to surgical key placement or may represent a metastatic lesion. IMPRESSION: 1. There is evidence of metastatic disease involving the left femoral neck, lateral aspect of right femoral neck, and mid shaft of the right femur. 2. Areas of increased uptake in the ribs may potentially all be related to trauma. Dictated by: Crispin Venegas M.D. on 11/19/2020 at 13:51 Approved by: Crisipn Venegas M.D. on 11/19/2020 at 13:58
--- NOTE | 2020-11-19 07:47 | P.PN_ITS ---
Subjective Subjective Date Patient Seen: 11/19/20 Time Patient Seen: 07:47 Interval history: Patient is POD#1 s/p left long cephalomedullary nail for a metastatic lesion to the left intertrochanteric femur region with Meril's score of [address] Saldaña. Pain has been moderate, requiring IV Dilaudid. She has not mobilized as of yet. No chest pain or shortness of breath. No complaints. Exam Vital Signs (past 8 hours): - 11/19/20 00:00 11/19/20 05:02 Temperature 97.9 F 97.2 F L Pulse Rate 92 H 92 H Respiratory Rate 16 16 Blood Pressure 143/93 H 175/97 H Pulse Oximetry 96 99 Oxygen Delivery Method Room Air Oxygen Flow Rate 2 Narrative Exam Narrative: 60 year old female resting in bed, alert and oriented in no acute distress. Dressing in place is CDI. Small area of strikethrough on proximal dressing. Patient able to flex and extend the ankle. Palpable pedal pulse. Objective Labs Result Diagrams: 11/19/20 06:20 11/19/20 06:20 Labs: Laboratory Results - last 24 hr 11/18/20 11/18/20 11/18/20 11:45 13:20 13:20 WBC 3.3 L RBC 4.18 Hgb 12.5 Hct 37.6 MCV 89.8 MCH 29.9 MCHC 33.3 RDW 14.4 Plt Count 48 L Neut % (Auto) 65.5 Lymph % (Auto) 23.9 L [place] % (Auto) 7.6 Eos % (Auto) 2.3 Baso % (Auto) 0.7 Neut # (Auto) 2200 Lymph # (Auto) 800 L [place] # (Auto) 300 Eos # (Auto) 100 Baso # (Auto) 0 Platelet Estimate RBC Morphology Sodium 138 Potassium 3.6 Chloride 106 Carbon Dioxide 29 BUN 21 H Creatinine 0.84 Estimated GFR > 60.0 BUN/Creatinine Ratio 25.0 H Glucose 259 H Hemoglobin A1c Calcium 11.9 H Phosphorus Magnesium Total Bilirubin 0.4 Conjugated Bilirubin Unconjugated Bilirubin AST 27 ALT 23 Alkaline Phosphatase 140 H Troponin I Total Protein 7.2 Albumin 4.0 Globulin 3.2 Albumin/Globulin Ratio 1.3 TSH SARS-CoV-2 (PCR) Negative 11/18/20 11/18/20 11/18/20 19:32 19:32 19:32 WBC RBC Hgb 11.4 L Hct 34.3 L MCV MCH MCHC RDW Plt Count Neut % (Auto) Lymph % (Auto) [place] % (Auto) Eos % (Auto) Baso % (Auto) Neut # (Auto) Lymph # (Auto) [place] # (Auto) Eos # (Auto) Baso # (Auto) Platelet Estimate RBC Morphology Sodium Potassium Chloride Carbon Dioxide BUN Creatinine Estimated GFR BUN/Creatinine Ratio Glucose Hemoglobin A1c 8.8 H Calcium Phosphorus 3.4 Magnesium 1.5 L Total Bilirubin Conjugated Bilirubin Unconjugated Bilirubin AST ALT Alkaline Phosphatase Troponin I Total Protein Albumin Globulin Albumin/Globulin Ratio TSH SARS-CoV-2 (PCR) 11/18/20 11/19/20 11/19/20 22:08 06:20 06:20 WBC 4.3 L RBC 3.38 L Hgb 10.2 L Hct 30.3 L MCV 89.7 MCH 30.1 MCHC 33.6 RDW 14.6 Plt Count 41 L Neut % (Auto) 74.0 Lymph % (Auto) 16.0 L [place] % (Auto) 9.3 Eos % (Auto) 0.4 L Baso % (Auto) 0.3 Neut # (Auto) 3200 Lymph # (Auto) 700 L [place] # (Auto) 400 Eos # (Auto) 0 Baso # (Auto) 0 Platelet Estimate Decreased on smear RBC Morphology Normal morphology Sodium 137 Potassium 3.8 Chloride 106 Carbon Dioxide 30 BUN 21 H Creatinine 0.85 Estimated GFR > 60.0 BUN/Creatinine Ratio 24.7 H Glucose 234 H Hemoglobin A1c Calcium 10.4 H Phosphorus Magnesium 1.5 L Total Bilirubin 0.7 Conjugated Bilirubin 0.0 Unconjugated Bilirubin 0.6 AST 25 ALT 20 Alkaline Phosphatase 91 Troponin I < 0.012 Total Protein 6.0 L Albumin 3.2 L Globulin 2.8 Albumin/Globulin Ratio 1.1 TSH SARS-CoV-2 (PCR) 11/19/20 06:20 WBC RBC Hgb Hct MCV MCH MCHC RDW Plt Count Neut % (Auto) Lymph % (Auto) [place] % (Auto) Eos % (Auto) Baso % (Auto) Neut # (Auto) Lymph # (Auto) [place] # (Auto) Eos # (Auto) Baso # (Auto) Platelet Estimate RBC Morphology Sodium Potassium Chloride Carbon Dioxide BUN Creatinine Estimated GFR BUN/Creatinine Ratio Glucose Hemoglobin A1c Calcium Phosphorus Magnesium Total Bilirubin Conjugated Bilirubin Unconjugated Bilirubin AST ALT Alkaline Phosphatase Troponin I Total Protein Albumin Globulin Albumin/Globulin Ratio TSH 0.75 SARS-CoV-2 (PCR) PFSH Medical History Breast cancer Imbalance of muscle of eye Multiple lesions of metastatic malignancy Surgical History History of eye surgery History of lumpectomy History of total abdominal hysterectomy History of vascular access device Status post surgery (03/15/13) Family History Father No significant medical problems Mother Stroke Diabetes mellitus Daughter Diabetes mellitus Social History household members: spouse Smoking Status: Never smoker alcohol intake: current Assessment & Plan Assessment & Plan narrative: -Patient progressing as expected postoperatively. -Continue pain control. She may WBAT on the operative extremity. -Total body bone scan ordered today looking for other possible sites of metastasis. -Will need referral to rad/onc for treatment of bilateral femoral neck lesions. Quality VTE Deep Vein Thrombosis/Pulmonary Embolism Present on Admission: No
[2020-11-19] MEDS: INSULIN ASPART 100 UNIT/ML INSULN PEN SUBCUT ×4 (08:55→21:37)
[2020-11-19] MEDS: ACETAMINOPHEN 325 MG TABLET 975 MG PO ×3 (08:56→21:36)
[2020-11-19] MEDS: polyethylene glycoL 3350 17 GM POWD.PACK PO (08:56)
[2020-11-19] MEDS: ENOXAPARIN 40 MG/0.4 ML SYRINGE SUBCUT (08:56)
[2020-11-19] MEDS: MAGNESIUM OXIDE 400 MG TABLET PO ×2 (08:57→21:36)
[2020-11-19] MEDS: DOCUSATE 100 MG CAPSULE PO ×2 (08:57→21:37)
--- NOTE | 2020-11-19 10:27 | PT.IIE ---
Current Diagnoses Secondary malignant neoplasm of bone (11/19/20) Surgery Performed Operation Date: 11/18/20 14:00 Actual Procedures p Left Long Cephalomedulary IM Femoral nail(Left) - Baltazar Saldaña MD Surgical History (Last Reviewed 11/19/20 @ 09:52 by Mellisa Persaud PA-C) History of eye surgery History of lumpectomy History of total abdominal hysterectomy History of vascular access device Status post surgery (03/15/13) Medical History (Last Reviewed 11/19/20 @ 09:52 by Mellisa Persaud PA-C) Breast cancer Imbalance of muscle of eye Multiple lesions of metastatic malignancy Physical Therapy Inpatient Evaluation/Re-Eval M1 PT/OT-IP Prior Functional Status Start: 11/19/20 11:47 Freq: NEEDED Status: Active Protocol: Document 11/19/20 10:27 AB (Rec: 11/19/20 12:48 AB [email or web address]) Medical Review Prior Functional Status Medical History Reviewed Yes Communication able to make needs known Mobility and Gait pt stated that she has been needing assistance with all mobilities for the last 3-4 weeks but prior to that, was independent without AD. spouse has been assisting pt with bed mobility, transfers and ambulation using 2 walking sticks. Activities of Daily Living and IADL's pt stated that spouse assists her with dressing, shower, requires assistance for toilet transfers but able to do her hygiene care Prior Functional Level (Other details) pt with h/o breast CA and has worsening hip pain and imaging result of metastatic lesions to pelvis and femur and pt underwent L hip nailing. Social History Household Members spouse Living Arrangements House Number of Floors (Floors) Two Floors Number of Stairs To Enter/Railing? pt stated that they have been staying on their trailer since pt has been having hip pain: has 3 steps to enter the trailer with R rail ascending; FWW will not fit inside the trailer to get into the house: has a ramp to enter Home Environment Standard Height Toilet,Walk in Shower Home Equipment Hand Held Shower,Grab Bars Near Toilet Additional Social History Comment pt has walking sticks M2 PT-IP Current Condition Start: 11/19/20 11:47 Freq: NEEDED Status: Active Protocol: Document 11/19/20 10:27 AB (Rec: 11/19/20 12:48 AB [email or web address]) Physical Therapy Current Condition Current Condition Evaluation Date 11/19/20 Treatment Diagnosis s/p L hip nailing; difficulty in walking Onset Date 11/18/19 Weight Bearing Status Weight Bearing Status Weight Bear as Tolerated Allowed Weight Bearing Amount (enter % LLE WBAT or #) (%) M3 PT-IP Subjective Start: 11/19/20 11:47 Freq: NEEDED Status: Active Protocol: Document 11/19/20 10:27 AB (Rec: 11/19/20 12:48 AB [email or web address]) Subjective Physical Therapy Visit Type Type Initial Evaluation Visit Start Time 10: Visit Stop Time 11:15 Total Visit Minutes 48 Number of HEMATOLOGY SUPERVISOR Visits 0 Physical Therapy Visit Comments Patient Comments pt is agreeable to do PT Therapy Pain Assessment Pain When Pain Assessed At Rest Pain Present Pain Present Pain Reported Location left hip Intensity 5 Scale Used increases to 10/10 with mobility Pain Management Techniques Distraction,Modification of Treatment,Re-positioning, Timing of Activity with Medications M4 PT-IP Mobility and Gait Start: 11/19/20 11:47 Freq: NEEDED Status: Active Protocol: Document 11/19/20 10:27 AB (Rec: 11/19/20 12:48 [email or web address]) PT-Bed Mobility Assessment Supine to Sit Supine to Sit Maximum Assistance,1 Person Assistance PT-Transfer Assessment Sit to and From Stand Sit to and from Stand Maximum Assistance,1 Person Assistance,2 Person Assistance ,Use of Upper Extremities Equipment Transfer Assistive Device Gait Belt,Front Wheeled Walker Orthotic/Prosthetic Devices or Brace: No Transfers Transfer Destination Chair,Toilet Transfer Technique ambulated using FWW Transfer Ability Level of Assist Maximum Assistance,1 Person Assistance,Use of Upper Extremities Comments Mobility Comments pt agreeable to do PT. completed heels slides in bed prior to mobilty. completed supine to sit max A and max cues. pt was able to sit on EOB SBA. completed sit to stand max A x 1-2 and max cues . pt requested to use the toilet and ambulated using FWW max A and max cues. pt ambulated out of the toilet using FWW max A and cues. agreed to sit up on chair. call light and table placed within reach. informed pt regarding FWW recommendation. upon further inquiry, pt stated that FWW will not fit in the trailer. stated that it will fit in the house. pt also has a ramp to enter the house and agreed to stay on main level of the house. stated that she will inform her spouse. Gait Assessment Gait Gait Assistance Required: Maximum Assistance,1 Person Assist Distance (Feet) 15 Able to Maintain Weight Bearing Status Yes During Gait Assistive Devices Assistive Device Gait Belt,Front Wheeled Walker Orthotic/Prosthetic Devices or Brace: No Gait Deviations General Gait Pattern Antalgic,Decreased Stride Length,Decreased Feet Clearance,Step-to Gait Factors Limiting Gait Function Factors Limiting Gait Function Decreased Activity Tolerance, Decreased Sensation,Decreased Strength,Limited Range of Motion,Pain,Poor Balance,Poor Safety Awareness Comments Gait Comments pls refer to mobility section for details PT-Balance Assessment Sitting Balance and Reactions Static Sitting Balance Ability Good Dynamic Sitting Balance Ability Good Standing Balance and Reactions Static Standing Balance Ability Poor Dynamic Standing Balance Ability Poor Device Used FWW M5 PT-IP Objective Assessments Start: 11/19/20 11:47 Freq: NEEDED Status: Active Protocol: Document 11/19/20 10:27 AB (Rec: 11/19/20 12:48 AB [email or web address]) Orientation Orientation/Cognition Level of Alertness Alert Orientation Name,Age,Birthday,Month,Date, Year,Day of Week,Place, Situation Language Function Ability No Deficits Noted Safety Awareness Understands Safety Issues Memory Description No Deficits Noted Gross Range of Motion Lower Extremity ROM Assessment Within Functional Limits Impairments increarse LLE muscle guarding due to pain Strength Lower Extremity Strength Assessment Left Impaired Hip 3-/5 Knee 3-/5 Sensation Assessment Sensation Light Touch Impaired Proprioception (Position) Impaired Comments Sensation Comments 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 M6 PT-IP Treatment Start: 11/19/20 11:47 Freq: NEEDED Status: Active Protocol: Document 11/19/20 10:27 AB (Rec: 11/19/20 12:48 AB [id number]) Physical Therapy Treatment Exercises Exercises Heel Slides Education Education Provided Precautions,Weight Bearing Status,Post-Op Packet,Safety M7 PT-IP Assessment and Plan Start: 11/19/20 11:47 Freq: NEEDED Status: Active Protocol: Document 11/19/20 10:27 AB (Rec: 11/19/20 12:48 AB [id number]) PT Summary Assessment and Plan Potential Rehabilitation Potential Fair Status of Condition at Evaluation Evolving Summary Impairments Pain,ROM,Strength,Balance, Coordination,Sensation,Tone, Cognition,Bed Mobility, Transfers,Gait,Activity Tolerance Assessment Summary pt requiring max A with mobility using FWW. pt stated that her spouse will be able to assist her at home. will need caregiver training. d/c plan depending if spouse will be able to assist pt safely but at this time may require SNF rehab. Goals Bed Mobility Goal Minimal Assistance Transfer Goal Minimal Assistance Gait Goal Minimal Assistance Gait Distance 30 Other Goals improve ambulation using FWW 75 ft CGA Days to Meet Goals 10 Frequency of Treatment Frequency Of Treatment Twice a Day Treatment Plan Physical Therapy Treatment Plan Bed Mobility Training,Transfer Training,Gait Training, Therapeutic Exercise,Balance Retraining,Post Op Education, Discharge Planning,Hot or Cold Pack,Neuromuscular Re-ed, Coordination Retraining,Manual Therapy Other Recommendations and Next Treatment ambulation, caregiver training Focus whe appropriate Recommendations To Nursing Amount of Assist Needed 2 Person Assist Discharge Recommendations PT Discharge Recommendations Home with 24/7 Assist,Home Health,SNF Rehab Other Discharge Recommendations depending on progress: SNF vs home with 24/7 and HHPT Transportation Needs at Discharge Private Vehicle,Wheelchair/ Cabulance
--- NOTE | 2020-11-19 12:32 | PC.NURSE ---
1215- pt left via wheelchair to for bone scan.
--- NOTE | 2020-11-19 14:07 | PT.IPTN ---
Current Diagnoses Secondary malignant neoplasm of bone (11/19/20) Surgery Performed Operation Date: 11/18/20 14:00 Actual Procedures p Left Long Cephalomedulary IM Femoral nail(Left) - Baltazar Saldaña MD Physical Therapy Treatment Note M2 PT-IP Current Condition Start: 11/19/20 11:47 Freq: NEEDED Status: Active Protocol: Document 11/19/20 10:27 AB (Rec: 11/19/20 12:48 AB [email or web address]) Physical Therapy Current Condition Current Condition Evaluation Date 11/19/20 Treatment Diagnosis s/p L hip nailing; difficulty in walking Onset Date 11/18/19 Weight Bearing Status Weight Bearing Status Weight Bear as Tolerated Allowed Weight Bearing Amount (enter % LLE WBAT or #) (%) M3 PT-IP Subjective Start: 11/19/20 11:47 Freq: NEEDED Status: Active Protocol: Document 11/19/20 14:07 AB (Rec: 11/19/20 15:19 AB [email or web address]) Subjective Physical Therapy Visit Type Type Treatment Note Visit Start Time 14:07 Visit Stop Time 14:50 Total Visit Minutes 43 Number of PERINATAL SPECIALIST Visits 0 Physical Therapy Visit Comments Patient Comments pt is agreeable to do PT Therapy Pain Assessment Pain When Pain Assessed At Rest Pain Present Pain Present Pain Reported Location left hip Intensity 1 Scale Used increases during mobility Pain Behaviors Facial Grimacing,Guarding, Wincing Pain Management Techniques Distraction,Re-positioning, Timing of Activity with Medications M4 PT-IP Mobility and Gait Start: 11/19/20 11:47 Freq: NEEDED Status: Active Protocol: Document 11/19/20 14:07 AB (Rec: 11/19/20 15:19 AB [email or web address]) PT-Bed Mobility Assessment Sit to Supine Sit to Supine Moderate Assistance,1 Person Assistance PT-Transfer Assessment Sit to and From Stand Sit to and from Stand Minimal Assistance,1 Person Assistance,Use of Upper Extremities Equipment Transfer Assistive Device Gait Belt,Front Wheeled Walker Orthotic/Prosthetic Devices or Brace: No Transfers Transfer Destination Bed Transfer Technique ambulated using FWW Transfer Ability Level of Assist Minimal Assistance,Moderate Assistance,1 Person Assistance ,Use of Upper Extremities Comments Mobility Comments pt sitting on chair and agreeable to do PT. completed LLE SAQs with 5 sec hold. pt stated that her spouse got a FWW for her. pt stated that she prefer to go back to their trailer instead of the house and that she has a ways to get into the house from the parking lot to the house. pt does not have stairs to enter the house but has 2 steps with wall hand rails to get into the trailer but car can be parked close by. FWW will not fit inside the trailer. informed pt regarding safety and will assess safest d/c plan depending on progress and agreeable to do caregiver training. also informed pt that if she has to go back to her house and not the trailer, she may need a w/c to use to get closer to their house. pt understood. pt called her spouse and Spouse will be coming in tomorrow at 10 am for caregiver training and will also bring pt's walking sticks for training. pt completed sit to stand from the chair min A. ambulated in room ~ 40 ft using FWW min to mod and cues for L quads activation. instructed pt to complete single leg stance using FWW for support to determine appropriateness for stair climbing. pt completed and was able to complete 10 sec of SLS on LLE with use of FWW. pt requested to lay back in bed. completed sit to supine mod A with LE elevation to bed . positioned in bed. call light and table placed within reach. Gait Assessment Gait Gait Assistance Required: Minimum Assistance,Moderate Assistance Distance (Feet) 40 Able to Maintain Weight Bearing Status Yes During Gait Assistive Devices Assistive Device Gait Belt,Front Wheeled Walker Orthotic/Prosthetic Devices or Brace: No Gait Deviations General Gait Pattern Antalgic,Decreased Stride Length,Decreased Feet Clearance,Step-to Gait Factors Limiting Gait Function Factors Limiting Gait Function Decreased Activity Tolerance, Decreased Sensation,Decreased Strength,Limited Range of Motion,Pain,Poor Balance Comments Gait Comments pls refer to mobility section for details M5 PT-IP Objective Assessments Start: 11/19/20 11:47 Freq: NEEDED Status: Active Protocol: Document 11/19/20 10:27 AB (Rec: 11/19/20 12:48 AB [id number]) Orientation Orientation/Cognition Level of Alertness Alert Orientation Name,Age,Birthday,Month,Date, Year,Day of Week,Place, Situation Language Function Ability No Deficits Noted Safety Awareness Understands Safety Issues Memory Description No Deficits Noted Gross Range of Motion Lower Extremity ROM Assessment Within Functional Limits Impairments increarse LLE muscle guarding due to pain Strength Lower Extremity Strength Assessment Left Impaired Hip 3-/5 Knee 3-/5 Sensation Assessment Sensation Light Touch Impaired Proprioception (Position) Impaired Comments Sensation Comments 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 M6 PT-IP Treatment Start: 11/19/20 11:47 Freq: NEEDED Status: Active Protocol: Document 11/19/20 14:07 AB (Rec: 11/19/20 15:19 AB [id number]) Physical Therapy Treatment Education Education Provided Safety M7 PT-IP Assessment and Plan Start: 11/19/20 11:47 Freq: NEEDED Status: Active Protocol: Document 11/19/20 14:07 AB (Rec: 11/19/20 15:19 AB [id number]) PT Summary Assessment and Plan Potential Rehabilitation Potential Fair Summary Impairments Pain,ROM,Strength,Balance, Coordination,Sensation,Tone, Cognition,Bed Mobility, Transfers,Gait,Activity Tolerance Progress Towards Goals Slow Progress due to Pain,Slow Progress due to Medical Issues Assessment Summary pt improving slowly with mobility requiring min to mod A with ambulation using FWW. caregiver training set up for tomorrow 11/20/20Monday at 10am . d/c plan depending on progress and if spouse will be able to assist pt safely. will continue to assess progress. Goals Bed Mobility Goal Standby Assistance Transfer Goal Standby Assistance Gait Goal Contact Guard Assistance Gait Distance 75 Other Goals improve ambulation using FWW 75 ft CGA up/down 2 steps 2 rails min A Days to Meet Goals 10 Frequency of Treatment Frequency Of Treatment Twice a Day Treatment Plan Physical Therapy Treatment Plan Bed Mobility Training,Transfer Training,Gait Training, Therapeutic Exercise,Balance Retraining,Post Op Education, Discharge Planning,Hot or Cold Pack,Neuromuscular Re-ed, Coordination Retraining,Manual Therapy Other Recommendations and Next Treatment ambulation, caregiver training Focus whe appropriate Recommendations To Nursing Amount of Assist Needed 1 Person Assist Discharge Recommendations PT Discharge Recommendations Home with 24/7 Assist,Home Health,SNF Rehab Other Discharge Recommendations depending on progress: SNF vs home with 24/7 and HHPT Transportation Needs at Discharge Private Vehicle,Wheelchair/ Cabulance
--- NOTE | 2020-11-19 15:25 | CM.IDA ---
Initial DCP Assessment Note Patient is a 60 yo female, resident of [facility]. Patient with h/o breast cancer presented to Dr Saldaña's office complaining of persistent and worsening hip pain. MRI showed metastatic disease to the bony pelvis and hips. Patient at extreme risk of fx, notes indicate Dr Saldaña's office recommended patient walk to the ED for consideration of admission to the medicine service and anticipation of pinning of her hip to prevent pathologic fx. Patient POD#1 from her pinning. PT/OT completing evaluations today; [facility] PT shares that patient moving very slowly, patient hopes to return home w/family to their RV (first choice) vs their [place] home (long driveway, stairs) vs a home of one of their adult children (?) in this area. Patient and spouse are retired and have 4 adult children that are out of the house and (all live in this area), one 9 yo at home. Patient has been receiving chemo/radiation at [facility] for 3 1/2 years, once every 3 weeks, patient states she gets very sick after each treatment. Patient/spouse bought their traveling home RV as they retired this year so that they could travel while their 9 yo completes school remotely. Patient states of course we did not plan for this Patient in good spirits throughout our conversation. Patient is very hopeful to return to their RV (parked right on the water) because it's cozy and patient has managed well in the RV this last month as her hip pain has increased. Patient recognizes she cannot use a walker in the RV. Therapy team will trial patient's walking sticks. Patient also plans to soon install a lift for the RV but does not have one installed currently. Plan: DC expected home w/ continued treatment for metastatic breast cancer if offered. r/o need for HH This CHIEF SCIENTIST following closely and will check in w/patient tomorrow. Spouse would like to be at bedside, he is currently w/their 9 yo dtr. They r staying w/one of their grown kids that live in the area FRED Ayon Discharge Planning/Care Management CM Discharge Assessment Start: 11/19/20 15:21 Freq: Status: Active Protocol: Document 11/19/20 15:21 LISBET (Rec: 11/19/20 15:24 LISBET [id number]) Discharge Planning Assessment Assigned Casing Worker FRED Molina DPOA/Assigned Designee Name Bernabe Sheriff, spouse Contact Information [phone] Advance Directives? No History Provided By Patient Prior Living Arrangements RV Household Members spouse,children Type of transporation used prior to Relies on Others admit Willing to Return to Facility? No Independent with ADL's No Is patient alert and oriented? Yes Caregiver for Another Yes: 9 yo dtr Barriers to Discharge Yes Comment Functionally, not at baseline d/t pain and s/p nailing for metastatic lesion- femur region Discharge Plan Home Transportation Arrangement Family
--- NOTE | 2020-11-19 20:19 | P.PN_ITS ---
Subjective Subjective Date Patient Seen: 11/19/20 Time Patient Seen: 10:45 Interval history: This is a 60-year-old female patient with a known history of breast cancer having received chemo therapy hormone therapy and radiation therapy who presents to the orthopedist's office for right hip pain increasing over 3 weeks developing severe groin pain that is worsened with ambulation who was admitted after a metastasis was found in her left femur, she underwent opera tive pinning for stabilization with Dr. Saldaña, orthopedic surgery. She is doing well today and reports improved pain control. She denies any chest pain, shortness of breath, nausea, vomiting, abdominal pain, dysuria, urinary frequency. She denies any back pain. She does report increased muscle spasms over the past few weeks. Exam Vital Signs (past 8 hours): - 11/19/20 15:20 11/19/20 19:25 Temperature 97.7 F 98.1 F Pulse Rate 97 H 100 H Respiratory Rate 14 16 Blood Pressure 120/71 126/76 Pulse Oximetry 90 L 90 L Oxygen Delivery Method Nasal Cannula Oxygen Flow Rate 0 Narrative Exam Narrative: GENERAL APPEARANCE: well developed, obese female who is in drowsy and in moderate pain HEENT: Normocephalic, PERRLA, conjunctiva clear, sclera is anicteric, eye asymmetry, dysconjugate gaze with right eye esotropia, mucous membranes are moist and pink. NECK/THYROID: neck supple, no JVD, no thyromegaly, trachea midline. LYMPH NODES: no cervical or supraclavicular lymphadenopathy. SKIN: [place], warm and dry, no visible lesions, rashes, ulcerations or petechiae. HEART: regular rate and rhythm, S1-S2, no murmur, no rubs or gallops, brisk capillary refill, no edema LUNGS: clear to auscultation bilaterally, no coarseness crackles or wheezing, no cough present CHEST: Symmetrical movement, no accessory muscle use, good tidal volume. ABDOMEN: Soft, no distention, no abdominal tenderness, no guarding or peritoneal signs, no organomegaly, no flank or suprapubic tenderness, active bowel tones. BACK: Normal curvature, nontender to palpation, no CVA tenderness on percussion EXTREMITIES: Surgical dressing left hip and lateral distal femur clean dry and intact, distal CMS intact, no deformities or joint effusions. NEUROLOGIC: AAO to person place and situation, no focal neurologic deficits, sensation intact to light touch, hearing grossly normal to speech. PSYCH: Drowsy postoperatively, slow to respond to questions, cooperative. Objective Labs Result Diagrams: 11/19/20 06:20 11/19/20 06:20 Labs: Laboratory Results - last 24 hr 11/18/20 11/18/20 11/19/20 19:32 22:08 06:20 WBC 4.3 L RBC 3.38 L Hgb 10.2 L Hct 30.3 L MCV 89.7 MCH 30.1 MCHC 33.6 RDW 14.6 Plt Count 41 L Neut % (Auto) 74.0 Lymph % (Auto) 16.0 L [place] % (Auto) 9.3 Eos % (Auto) 0.4 L Baso % (Auto) 0.3 Neut # (Auto) 3200 Lymph # (Auto) 700 L [place] # (Auto) 400 Eos # (Auto) 0 Baso # (Auto) 0 Platelet Estimate Decreased on smear RBC Morphology Normal morphology Sodium Potassium Chloride Carbon Dioxide BUN Creatinine Estimated GFR BUN/Creatinine Ratio Glucose Calcium Phosphorus 3.4 Magnesium 1.5 L Total Bilirubin Conjugated Bilirubin Unconjugated Bilirubin AST ALT Alkaline Phosphatase Troponin I < 0.012 Total Protein Albumin Globulin Albumin/Globulin Ratio TSH 11/19/20 11/19/20 06:20 06:20 WBC RBC Hgb Hct MCV MCH MCHC RDW Plt Count Neut % (Auto) Lymph % (Auto) [place] % (Auto) Eos % (Auto) Baso % (Auto) Neut # (Auto) Lymph # (Auto) [place] # (Auto) Eos # (Auto) Baso # (Auto) Platelet Estimate RBC Morphology Sodium 137 Potassium 3.8 Chloride 106 Carbon Dioxide 30 BUN 21 H Creatinine 0.85 Estimated GFR > 60.0 BUN/Creatinine Ratio 24.7 H Glucose 234 H Calcium 10.4 H Phosphorus Magnesium 1.5 L Total Bilirubin 0.7 Conjugated Bilirubin 0.0 Unconjugated Bilirubin 0.6 AST 25 ALT 20 Alkaline Phosphatase 91 Troponin I Total Protein 6.0 L Albumin 3.2 L Globulin 2.8 Albumin/Globulin Ratio 1.1 TSH 0.75 [facility] Medical History Breast cancer Imbalance of muscle of eye Multiple lesions of metastatic malignancy Surgical History History of eye surgery History of lumpectomy History of total abdominal hysterectomy History of vascular access device Status post surgery (03/15/13) Family History Father No significant medical problems Mother Stroke Diabetes mellitus Daughter Diabetes mellitus Social History household members: spouse and children Smoking Status: Never smoker alcohol intake: current Assessment & Plan Assessment & Plan narrative: This is a 60-year-old female patient with a known history of breast cancer having received chemo therapy hormone therapy and radiation therapy who presents to the orthopedist's office for right hip pain increasing over 3 weeks developing severe groin pain that is worsened with ambulation who was admitted after a metastasis was found in her left femur, she underwent operative pinning for stabilization with Dr. Saldaña, orthopedic surgery. 1. Metastatic left intertrochanteric femur lesion, acute, present on admission, active. -patient with progressive left hip pain over 3 week. Radiating to the groin worsening with ambulation. -plain film imaging of the hip and pelvis finds no etiology for the pain therefore MRI Was obtained which finds multiple metastatic disease in the pelvis and bilateral hips largest lesion in the left intertrochanteric femur and femoral neck. -orthopedics directed the patient to the ER due to the lytic lesion in risk of impending pathologic fracture with plans to take the patient to the OR for intramedullary nailing. -Dr. Saldaña has taken the patient to the OR and is status post cephalomedullary nail on the left femur. -postoperative orthopedic care per the orthopedic team. 2. Metastatic breast cancer, chronic -patient states he was diagnosed with breast cancer approximately 3 and half years ago and has undergone chemo hormone and radiation therapies with last treatment being 2 months ago. -patient receives her cancer care at [facility]. -recommend outpatient follow up with her oncologist after discharge. -depending on her hypercalcemia consider Zometa or starting alendronate upon discharge. 3. Hyperglycemia without diagnosis of diabetes, present on admission, active. -patient without history of diabetes and no medical therapy for hyperglycemia. Blood sugar on admission labs is 259. -obtained a hemoglobin A1c which is found to be 8.8 consistent with an approximate average blood sugar of 200. -ordered fingerstick blood sugars a.c. and hs with correctional insulin low-dose scale. -diet changed from regular diet to small consistent carbohydrate to enhance glycemic control and reduce risk for infection. -will likely discharge on oral therapy. 4. Mild hypercalcemia, acute versus chronic, present on admission, active. -hypercalcemia likely multifactorial, chronic related malignancy, lytic bone lesions as well as exacerbated by hyperglycemia and relative dehydration evidence by elevated BUN and BUN creatinine ratio as well as her thiazide. -patient was continued on normal saline, will stop today and continue to follow her calcium levels. -considering mild elevation of calcium Will continue to re-evaluate. Corrected calcium is 11.0 on today's lab, improved from 11.9 the day before. -consider Zometa given her known lytic lesions, however I do suspect that her calcium will correct once thiazide has been discontinued and she is fluid resuscitated. 5. Abnormal EKG, acute versus chronic, present on admission, active. -patient denies complaints of chest pain or palpitations, has risk factors including hypertension, diabetes not previously diagnosed and obesity. -preoperative 12 lead EKG reveals sinus rhythm at rate of 80 with a right bundle branch block left axis shift with notation of inverted T-waves in lead 3 and AVF. -repeated 12 lead EKG postoperatively an EKG is unchanged. -patient placed on cardiac telemetry. -troponin was negative. VTE prophylaxis: Contraindicated due to thrombocytopenia. Diet: Small consistent carbohydrate Code status: DNR, the patient designates her to be surrogate decision maker. Dispo: Home with assistance versus retirement facility depending on progress with physical therapy. Quality VTE Deep Vein Thrombosis/Pulmonary Embolism Present on Admission: No
[2020-11-20] VITALS (8 sets, daily range): BP systolic 115–151; BP diastolic 70–83; PULSE 78–101; RESP 16–17; TEMP 36.4–36.9; O2SAT 91–96
[2020-11-20] MEDS: OXYCODONE IR 10 MG TABLET PO ×2 (05:06→10:07)
[2020-11-20 05:18] LABS: Basophils Absolute Auto 0 /uL (0-100); Basophils Percent Auto 0.8 % (0-2); Eosinophils Absolute Auto 100 /uL (0-450); Eosinophils Percent Auto 1.7 % (2-4); Hematocrit 26.7 % (36-46); Hemoglobin 8.8 g/dL (12.0-16.0); Lymphocytes Absolute Auto 1100 /uL (1100-4500); Lymphocytes Percent Auto 23.4 % (25-40); Mean Corpuscular HGB Conc 32.9 % (30-36); Mean Corpuscular Hemoglobin 29.8 PG (26-34); Mean Corpuscular Volume 90.7 fL (80-100); Monocytes Absolute Auto 500 /uL (0-900); Monocytes Percent Auto 10.6 % (3-14); Neutrophils Absolute Auto 3000 /uL (1500-7000); Neutrophils Percent Auto 63.5 % (50-75); Red Blood Cell Count 2.94 X10^6/uL (4.0-5.2); Red Cell Distribution Width 14.2 % (11.6-14.8); White Blood Cell Count 4.7 X10^3/uL (4.5-11.0)
[2020-11-20 05:19] LABS: Platelet Count 49 X10^3/uL (150-400)
[2020-11-20 05:20] LABS: Add Manual Diff / Slide Review SLIDE REVIEW
[2020-11-20] MEDS: SODIUM CHLORIDE 0.9% FLUSH 10 ML IV (05:22)
[2020-11-20 05:30] LABS: Alanine Aminotransferase 13 IU/L (<35); Albumin 2.8 g/dL (3.5-5.0); Albumin Globulin Ratio 1.1 (1.0-2.8); Alkaline Phosphatase 122 U/L (38-126); Aspartate Aminotransferase 22 IU/L (14-36); BUN Creatinine Ratio 25.3 (6-22); Bilirubin Total 0.3 mg/dL (0.2-1.3); Bilirubin Unconjugated 0.3 mg/dL (0.0-1.1); Blood Urea Nitrogen 24 mg/dL (7-17); Calcium 10.3 mg/dL (8.4-10.2); Carbon Dioxide 30 mmol/L (22-32); Chloride 108 mmol/L (98-107); Estimated Glomerular Filt Rate > 60.0 mL/min (>60); Globulin 2.6 g/dL (1.7-4.1); Glucose 264 mg/dL (70-100); HEMOLYSIS < 15 (0-50); Magnesium 1.7 mg/dL (1.6-2.3); Sodium 136 mmol/L (137-145); Total Protein 5.4 g/dL (6.3-8.2)
[2020-11-20 05:39] LABS: Platelet Estimate Decreased on smear; RBC Morphology Normal Morphology
--- NOTE | 2020-11-20 05:45 | PC.NURSE ---
Pain well controlled through the night for patient. Up to bathroom this morning at 0520 with front wheel walker, and now resting in reclining chair.
--- NOTE | 2020-11-20 08:11 | PM.PNPO.1 ---
Subjective Subjective Date Patient Seen: 11/20/20 Time Patient Seen: 08:11 Interval history: POD #2 s/p s/p left long cephalomedullary nail for a metastatic lesion to the left intertrochanteric femur region with Meril's score of [address] Saldaña. Pain is much better today. Yesterday she mobilized in her room. No complaints. Exam Vital Signs (past 8 hours): - 11/20/20 05:41 Temperature 98.2 F Pulse Rate 78 Respiratory Rate 16 Blood Pressure 151/70 H Pulse Oximetry 96 Oxygen Delivery Method Room Air Oxygen Flow Rate 0 Narrative Exam Narrative: Patient sitting in bedside chair in NAD. She is alert and oriented X3. Calves are soft, compressible, and nontender bilaterally. SILT throughout BLEs. SCDs in place. DP symmetrical. Objective Labs Result Diagrams: 11/20/20 05:00 11/20/20 05:00 Labs: Laboratory Results - last 24 hr 11/20/20 11/20/20 05:00 05:00 WBC 4.7 RBC 2.94 L Hgb 8.8 L Hct 26.7 L MCV 90.7 MCH 29.8 MCHC 32.9 RDW 14.2 Plt Count 49 L Neut % (Auto) 63.5 Lymph % (Auto) 23.4 L [place] % (Auto) 10.6 Eos % (Auto) 1.7 L Baso % (Auto) 0.8 Neut # (Auto) 3000 Lymph # (Auto) 1100 [place] # (Auto) 500 Eos # (Auto) 100 Baso # (Auto) 0 Platelet Estimate Decreased on smear RBC Morphology Normal morphology Sodium 136 L Potassium 4.0 Chloride 108 H Carbon Dioxide 30 BUN 24 H Creatinine 0.95 Estimated GFR > 60.0 BUN/Creatinine Ratio 25.3 H Glucose 264 H Calcium 10.3 H Magnesium 1.7 Total Bilirubin 0.3 Conjugated Bilirubin 0.0 Unconjugated Bilirubin 0.3 AST 22 ALT 13 Alkaline Phosphatase 122 Total Protein 5.4 L Albumin 2.8 L Globulin 2.6 Albumin/Globulin Ratio 1.1 [facility] Medical History Breast cancer Imbalance of muscle of eye Multiple lesions of metastatic malignancy Surgical History History of eye surgery History of lumpectomy History of total abdominal hysterectomy History of vascular access device Status post surgery (03/15/13) Family History Father No significant medical problems Mother Stroke Diabetes mellitus Daughter Diabetes mellitus Social History household members: spouse and children Smoking Status: Never smoker alcohol intake: current Assessment & Plan Post-op Postoperative Procedures: Procedures Operation Date: 11/18/20 14:00 Actual Procedures Side Surgeon p Left Long Cephalomedulary IM Femoral nail Left Baltazar Saldaña MD Patient will continue to mobilize with PT. Current pain controlled. Continue WBAT. Hospitalist managing VTE prophylaxis and medical comorbidities. Will need referral to rad/onc for treatment of bilateral femoral neck lesions. Quality VTE Deep Vein Thrombosis/Pulmonary Embolism Present on Admission: No
[2020-11-20] MEDS: polyethylene glycoL 3350 17 GM POWD.PACK PO (08:29)
[2020-11-20] MEDS: DOCUSATE 100 MG CAPSULE PO ×2 (08:30→21:01)
[2020-11-20] MEDS: ACETAMINOPHEN 325 MG TABLET 975 MG PO ×3 (08:30→21:00)
[2020-11-20] MEDS: MAGNESIUM OXIDE 400 MG TABLET PO ×2 (08:30→21:00)
[2020-11-20] MEDS: lisinopriL 20 MG TABLET PO ×2 (08:31→21:02)
[2020-11-20] MEDS: INSULIN ASPART 100 UNIT/ML INSULN PEN SUBCUT ×4 (08:33→20:57)
--- NOTE | 2020-11-20 10:48 | P.PN_ITS ---
Subjective Subjective Date Patient Seen: 11/20/20 Time Patient Seen: 10:48 Interval history: This is a 60-year-old female patient with a known history of breast cancer having received chemo therapy hormone therapy and radiation therapy who presents to the orthopedist's office for right hip pain increasing over 3 weeks developing severe groin pain that is worsened with ambulation who was admitted after a metastasis was found in her left femur, she underwent opera tive pinning for stabilization with Dr. Saldaña, orthopedic surgery. Overnight she slept in the chair for a few hours and has increased pain this morning, but this is improved with oral pain medications. Her calcium is slightly worse today at 11.3. She will be given a dose of zoledronic acid. Morning glucose was uncontrolled at 264. Her hemoglobin has dropped slightly today to 8.8. Platelets remain stable in the upper 40s. She denies any chest pain, shortness of breath, nausea, vomiting. She has had a bowel movement since surgery. 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 Exam Vital Signs (past 8 hours): - 11/20/20 05:41 11/20/20 08:31 11/20/20 09:06 Temperature 98.2 F 97.6 F Pulse Rate 78 100 H 100 H Respiratory Rate 16 16 Blood Pressure 151/70 H 115/70 115/70 Pulse Oximetry 96 93 Oxygen Delivery Method Room Air Oxygen Flow Rate 0 Narrative Exam Narrative: GENERAL APPEARANCE: well developed, obese female who is in drowsy and in moderate pain HEENT: Normocephalic, PERRLA, conjunctiva clear, sclera is anicteric, eye asymmetry, dysconjugate gaze with right eye esotropia, mucous membranes are moist and pink. NECK/THYROID: neck supple, no JVD, no thyromegaly, trachea midline. LYMPH NODES: no cervical or supraclavicular lymphadenopathy. SKIN: [place], warm and dry, no visible lesions, rashes, ulcerations or petechiae. HEART: regular rate and rhythm, S1-S2, no murmur, no rubs or gallops, brisk capillary refill, no edema LUNGS: clear to auscultation bilaterally, no coarseness crackles or wheezing, no cough present CHEST: Symmetrical movement, no accessory muscle use, good tidal volume. ABDOMEN: Soft, no distention, no abdominal tenderness, no guarding or peritoneal signs, no organomegaly, no flank or suprapubic tenderness, active bowel tones. BACK: Normal curvature, nontender to palpation, no CVA tenderness on percussion EXTREMITIES: Surgical dressing left hip and lateral distal femur clean dry and intact, distal CMS intact, no deformities or joint effusions. NEUROLOGIC: AAO to person place and situation, no focal neurologic deficits, sensation intact to light touch, hearing grossly normal to speech. PSYCH: Drowsy postoperatively, slow to respond to questions, cooperative. Objective Labs Result Diagrams: 11/20/20 05:00 11/20/20 05:00 Labs: Laboratory Results - last 24 hr 11/20/20 11/20/20 05:00 05:00 WBC 4.7 RBC 2.94 L Hgb 8.8 L Hct 26.7 L MCV 90.7 MCH 29.8 MCHC 32.9 RDW 14.2 Plt Count 49 L Neut % (Auto) 63.5 Lymph % (Auto) 23.4 L [place] % (Auto) 10.6 Eos % (Auto) 1.7 L Baso % (Auto) 0.8 Neut # (Auto) 3000 Lymph # (Auto) 1100 [place] # (Auto) 500 Eos # (Auto) 100 Baso # (Auto) 0 Platelet Estimate Decreased on smear RBC Morphology Normal morphology Sodium 136 L Potassium 4.0 Chloride 108 H Carbon Dioxide 30 BUN 24 H Creatinine 0.95 Estimated GFR > 60.0 BUN/Creatinine Ratio 25.3 H Glucose 264 H Calcium 10.3 H Magnesium 1.7 Total Bilirubin 0.3 Conjugated Bilirubin 0.0 Unconjugated Bilirubin 0.3 AST 22 ALT 13 Alkaline Phosphatase 122 Total Protein 5.4 L Albumin 2.8 L Globulin 2.6 Albumin/Globulin Ratio 1.1 [facility] Medical History Breast cancer Imbalance of muscle of eye Multiple lesions of metastatic malignancy Surgical History History of eye surgery History of lumpectomy History of total abdominal hysterectomy History of vascular access device Status post surgery (03/15/13) Family History Father No significant medical problems Mother Stroke Diabetes mellitus Daughter Diabetes mellitus Social History household members: spouse and children Smoking Status: Never smoker alcohol intake: current Assessment & Plan Assessment & Plan narrative: This is a 60-year-old female patient with a known history of breast cancer having received chemo therapy hormone therapy and radiation therapy who presents to the orthopedist's office for right hip pain increasing over 3 weeks developing severe groin pain that is worsened with ambulation who was admitted after a metastasis was found in her left femur, she underwent operative pinning for stabilization with Dr. Saldaña, orthopedic surgery. 1. Metastatic left intertrochanteric femur lesion, acute, present on admission, active. -patient with progressive left hip pain over 3 week. Radiating to the groin worsening with ambulation. -plain film imaging of the hip and pelvis finds no etiology for the pain therefore MRI Was obtained which finds multiple metastatic disease in the pelvis and bilateral hips largest lesion in the left intertrochanteric femur and femoral neck. -orthopedics directed the patient to the ER due to the lytic lesion in risk of impending pathologic fracture with plans to take the patient to the OR for intramedullary nailing. -Dr. Saldaña has taken the patient to the OR and is status post cephalomedullary nail on the left femur. -postoperative orthopedic care per the orthopedic team. 2. Metastatic breast cancer, chronic -patient states he was diagnosed with breast cancer approximately 3 and half years ago and has undergone chemo hormone and radiation therapies with last treatment being 2 months ago. -patient receives her cancer care at [facility]. -recommend outpatient follow up with her oncologist after discharge. -depending on her hypercalcemia consider Zometa or starting alendronate upon discharge. 3. Hyperglycemia without diagnosis of diabetes, present on admission, active. -patient without history of diabetes and no medical therapy for hyperglycemia. Blood sugar on admission labs is 259. -obtained a hemoglobin A1c which is found to be 8.8 consistent with an approximate average blood sugar of 200. -ordered fingerstick blood sugars a.c. and hs with correctional insulin low-dose scale. Will add low-dose Lantus at 5 units tonight given uncontrolled a.m. sugars. -diet changed from regular diet to small consistent carbohydrate to enhance glycemic control and reduce risk for infection. -will likely discharge on oral therapy. 4. Mild hypercalcemia, acute versus chronic, present on admission, active. -hypercalcemia likely multifactorial, chronic related malignancy, lytic bone lesions as well as exacerbated by hyperglycemia and relative dehydration evidence by elevated BUN and BUN creatinine ratio as well as her thiazide. -HCTZ discontinued. patient was continued on normal saline, have stopped with slight increase and will give zometa today as noted below. -Corrected calcium is 11.3 on today's lab, improved from 11.9 on admission, but still mildly elevated. The patient has no current symptoms. -will give a dose of Zometa 4 mg today. Have ordered her for PTH and vitamin-D levels which do take some time to return. 5. Abnormal EKG, acute versus chronic, present on admission, active. -patient denies complaints of chest pain or palpitations, has risk factors including hypertension, diabetes not previously diagnosed and obesity. -preoperative 12 lead EKG reveals sinus rhythm at rate of 80 with a right bundle branch block left axis shift with notation of inverted T-waves in lead 3 and AVF. -repeated 12 lead EKG postoperatively an EKG is unchanged. -patient placed on cardiac telemetry. -troponin was negative. VTE prophylaxis: Contraindicated due to thrombocytopenia. Diet: Small consistent carbohydrate Code status: DNR, the patient designates her to be surrogate decision maker. Dispo: Home with assistance and home health, anticipate discharge in the next 1-2 days. Quality VTE Deep Vein Thrombosis/Pulmonary Embolism Present on Admission: No
--- NOTE | 2020-11-20 12:05 | PT.IPTN ---
Current Diagnoses Secondary malignant neoplasm of bone (11/19/20) Surgery Performed Operation Date: 11/18/20 14:00 Actual Procedures p Left Long Cephalomedulary IM Femoral nail(Left) - Baltazar Saldaña MD Physical Therapy Treatment Note M2 PT-IP Current Condition Start: 11/19/20 11:47 Freq: NEEDED Status: Active Protocol: Document 11/19/20 10:27 AB (Rec: 11/19/20 12:48 AB [id number]) Physical Therapy Current Condition Current Condition Evaluation Date 11/19/20 Treatment Diagnosis s/p L hip nailing; difficulty in walking Onset Date 11/18/19 Weight Bearing Status Weight Bearing Status Weight Bear as Tolerated Allowed Weight Bearing Amount (enter % LLE WBAT or #) (%) M3 PT-IP Subjective Start: 11/19/20 11:47 Freq: NEEDED Status: Active Protocol: Document 11/20/20 11:10 SP (Rec: 11/20/20 14:43 SP [id number]) Subjective Physical Therapy Visit Type Type Treatment Note Visit Start Time 11:10 Visit Stop Time 12:05 Total Visit Minutes 55 Notes CoTx with OT beginning of tx for gait BR>sink> chair. attended tx and provided physical assist during caregiver training. Number of DEMOLITION HAMMER OPERATOR Visits 1 Physical Therapy Visit Comments Patient Comments Pt agreeable to working with therapy, finishing up OT when arrived. Patient Goals To return home with to assist her. Therapy Pain Assessment Pain When Pain Assessed During Mobility Pain Present Pain Present Pain Reported Location left hip Intensity 7 Scale Used Numeric (0 - 10) Description With Movement Pain Behaviors Facial Grimacing,Guarding, Restlessness,Wincing Pain Management Techniques Distraction,Re-positioning, Timing of Activity with Medications M4 PT-IP Mobility and Gait Start: 11/19/20 11:47 Freq: NEEDED Status: Active Protocol: Document 11/20/20 11:10 SP (Rec: 11/20/20 14:43 SP [id number]) PT-Transfer Assessment Sit to and From Stand Sit to and from Stand Minimal Assistance,1 Person Assistance,Use of Upper Extremities Equipment Transfer Assistive Device Gait Belt,Straight Cane,Front Wheeled Walker Orthotic/Prosthetic Devices or Brace: No Transfers Transfer Destination Chair,Wheelchair Transfer Technique Pt ambulated using FWW, B Mybandstock poles Transfer Ability Level of Assist Minimal Assistance,Moderate Assistance,2 Person Assistance ,Use of Upper Extremities Comments Mobility Comments Pt was walking out of bathroom with OT using FWW when arrived when arrived. DEMOLITION HAMMER OPERATOR assisted IV pole mgt, CGA by OT BR to sink approx 8 ft, CGA standing at sink with noted UE WB as needed assist at sink while washing hands, step pivot front sink using FWW, stationary stance CG-Min A x1 by OT while DEMOLITION HAMMER OPERATOR provided B trekk poles, pt ambulated 5 ft sink to chair and SPT front chair, pt required intermittent cuing for upright posture poles closer at sides of B feet to allow downward pressure for BLE advancement success Min-Mod A x2 person to assist with trunk lateral stability during BLE advancement. Step pivot, backing up and centering body awareness cuing for trekk pole positioning, reaching back and LLE repositioned out front more prior to sitting, Mod A for slow descent into chair. Pt did not reposition LLE out in front prior to sitting at any time throughout tx. Pt sat for 6 min rest and education via OT and DEMOLITION HAMMER OPERATOR on feedback awareness of increased support needed using trekk poles and recommending use of FWW during mobility at this time, pt verbalized understanding but thinks her and can do it, camper is to small for the FWW and doesn't want to go to her house . DEMOLITION HAMMER OPERATOR recommended provide assist needed CGT with pt using trekk poles and FWW for safety support awareness with both in agreement. Sit>stand Using BUE on chair arms then use of trekk poles Min- Mod A via . Pt ambulated then SPT approx 6 ft chair >w/c, slow descent sit into w/c, Min-Mod A and all cuing given by , close sBA by DEMOLITION HAMMER OPERATOR for safety and managed IV pole. Pt was wheeled down to stairs. Sit> stand using FWW, ambulated 5 ft to stairs, provided L HR and trekk pole via CGA, ascended 3 stairs with intermittent cuing by and DEMOLITION HAMMER OPERATOR for patterning LE /UE with Mod A of , CGA by DEMOLITION HAMMER OPERATOR and min stabilization of trekkpole on R. Descended Mod- Max A of , CGA by DEMOLITION HAMMER OPERATOR and intermittent cuing for trekk pole with stability support, LE patterning and upright posture to decreased trunk flexion demonstrated and support at gait belt at pt's front abdomen. Pt commented 's support was getting uncomfortable at front of abdomen, decreased/ improved with max cuing for her upright posture. Pt ambulated 5 ft back to w/c using FWW CGA- Min of . Pt was wheeled back to room, SPT w/c> chair and slow descent to sit in chair using FWW CGA by . Pt was reclined in chair with leg elevated, noted L eye was not opening wide. DEMOLITION HAMMER OPERATOR provided further education to pt and that did complete 3 stair mgt with devices has a her camper but that recommend at this time going home where doesn't have stair to manage and use of fWW for decreased assist required and for safety and energy conservation. Pt was in agreement at this time but wants to reassess tomorrow am during tx at 10 am with . Pt would benefit from further skilled acute PT at this time to improve strength, stability on feet with further instruction on use of FWW for support and decrease assist needed, patient and in agreement. Will continue to assess progress. Gait Assessment Gait Gait Assistance Required: Minimum Assistance,Moderate Assistance Distance (Feet) 8 Able to Maintain Weight Bearing Status Yes During Gait Assistive Devices Assistive Device Gait Belt,Straight Cane,Front Wheeled Walker Orthotic/Prosthetic Devices or Brace: No Gait Deviations General Gait Pattern Antalgic,Decreased Stride Length,Decreased Feet Clearance,Flexed Trunk,Lateral Trunk Lean,Step-to Gait Factors Limiting Gait Function Factors Limiting Gait Function Decreased Activity Tolerance, Decreased Sensation,Decreased Strength,Difficulty Following Directions,Limited Range of Motion,Pain,Poor Balance,Poor Safety Awareness,Respiratory Distress Comments Gait Comments See mobility comments for details. Stair Climbing Assessment Evaluation Level of Assist On Stairs Contact Guard Assistance, Moderate Assistance,Maximal Assistance,2 Person Assistance Devices Stair Climbing Assistive Devices Straight Cane,Left Railing Technique/Endurance Stair Climbing Direction Ascend and Descend Stair Climbing Technique Step to Step Number of Steps Climbed 3 Stair Climbing Set # Repetitions (reps) 1 Comments Stair Climbing Comments Step to patterning, max cuing Max A of 1, CG- Min 2nd person L HR trekk pole on R ascending. PT-Balance Assessment Sitting Balance and Reactions Static Sitting Balance Ability Good Dynamic Sitting Balance Ability Good Standing Balance and Reactions Static Standing Balance Ability Poor Dynamic Standing Balance Ability Poor Device Used trekk poles, Fair w/FWW M5 PT-IP Objective Assessments Start: 11/19/20 11:47 Freq: NEEDED Status: Active Protocol: Document 11/19/20 10:27 AB (Rec: 11/19/20 12:48 AB [id number]) Orientation Orientation/Cognition Level of Alertness Alert Orientation Name,Age,Birthday,Month,Date, Year,Day of Week,Place, Situation Language Function Ability No Deficits Noted Safety Awareness Understands Safety Issues Memory Description No Deficits Noted Gross Range of Motion Lower Extremity ROM Assessment Within Functional Limits Impairments increarse LLE muscle guarding due to pain Strength Lower Extremity Strength Assessment Left Impaired Hip 3-/5 Knee 3-/5 Sensation Assessment Sensation Light Touch Impaired Proprioception (Position) Impaired Comments Sensation Comments 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 M6 PT-IP Treatment Start: 11/19/20 11:47 Freq: NEEDED Status: Active Protocol: Document 11/20/20 11:10 SP (Rec: 11/20/20 14:43 SP [id number]) Physical Therapy Treatment Education Education Provided Precautions,Weight Bearing Status,Post-Op Packet,Safety M7 PT-IP Assessment and Plan Start: 11/19/20 11:47 Freq: NEEDED Status: Active Protocol: Document 11/20/20 11:10 SP (Rec: 11/20/20 14:43 SP [id number]) PT Summary Assessment and Plan Potential Rehabilitation Potential Fair Status of Condition at Evaluation Evolving Summary Impairments Pain,ROM,Strength,Balance, Coordination,Sensation,Tone, Cognition,Bed Mobility, Transfers,Gait,Activity Tolerance Progress Towards Goals Progressing Toward Goals,Slow Progress due to Pain,Slow Progress due to Medical Issues ,Slow Progress due to Activity Tolerance Assessment Summary pt improving slowly with mobility requiring min to mod A with transfers, CG using FWW , Mod x1-2 using trekk poles with ambulation. stair mgt Max x1, CG 2nd person. d/c plan home vs camper depending on progress and if spouse will be able to assist pt safely tomorrow 10 am. will continue to assess progress. Goals Bed Mobility Goal Standby Assistance Transfer Goal Standby Assistance Gait Goal Contact Guard Assistance Gait Distance 75 Other Goals improve ambulation using FWW 75 ft CGA up/down 2 steps 2 rails min A Days to Meet Goals 10 Frequency of Treatment Frequency Of Treatment Twice a Day Treatment Plan Physical Therapy Treatment Plan Bed Mobility Training,Transfer Training,Gait Training, Therapeutic Exercise,Balance Retraining,Post Op Education, Discharge Planning,Hot or Cold Pack,Neuromuscular Re-ed, Coordination Retraining,Manual Therapy Other Recommendations and Next Treatment bed mobility, transfers, Focus ambulation using FWW, caregiver training again 11/21 at 10 am fWW vs trekk poles and stair mgt again. Recommendations To Nursing Amount of Assist Needed 1 Person Assist Discharge Recommendations PT Discharge Recommendations Home with 24/7 Assist,Home Health,SNF Rehab Other Discharge Recommendations depending on progress: SNF vs home with 24/7 and HHPT Equipment Needed for Home Before FWW, w/c if going home. Discharge Transportation Needs at Discharge Private Vehicle,Wheelchair/ Cabulance
[2020-11-20 12:06] LABS: Vitamin D 25 Hydroxy (D3) 26.1 ng/mL (30.0-100.0)
[2020-11-20] MEDS: ZOLEDRONIC ACID 4 MG in SODIUM CHLORIDE 0.9% 100 ML 315 ML IV (12:26)
--- NOTE | 2020-11-20 14:41 | CM.DPNOTE ---
Addendum entered by FRED Ayon 11/20/20 15:07: Faxed referral to [facility] since it is Monday afternoon, unsure if they are available over the w/e? faxed completed and signed F2F, HH order and clinical. Original Note: DCP Cont According to conversation w/OT CJ; patient showing signs of cognitive impairment. Spouse has been in for cg training and therapy team expects to clear patient for return home w/HH, however, CJ will conduct SLUMS and has relayed concern about patient's poor safety awareness and short term memory loss. Dr Malin may decide to complete a CT of the head to r/o brain mets vs wait until patient completes her outpatient f/u w/her oncologist re: new dx of metastatic disease. Patient wants to return home w.her spouse and 9 yo dtr, she would like to return to their RV if possible. Need to make HH referral if patient agreeable; would need to be [facility] . LISBET
--- NOTE | 2020-11-20 16:40 | PT.IPTN ---
Current Diagnoses Secondary malignant neoplasm of bone (11/19/20) Surgery Performed Operation Date: 11/18/20 14:00 Actual Procedures p Left Long Cephalomedulary IM Femoral nail(Left) - Baltazar Saldaña MD Physical Therapy Treatment Note M2 PT-IP Current Condition Start: 11/19/20 11:47 Freq: NEEDED Status: Active Protocol: Document 11/19/20 10:27 AB (Rec: 11/19/20 12:48 AB [id number]) Physical Therapy Current Condition Current Condition Evaluation Date 11/19/20 Treatment Diagnosis s/p L hip nailing; difficulty in walking Onset Date 11/18/19 Weight Bearing Status Weight Bearing Status Weight Bear as Tolerated Allowed Weight Bearing Amount (enter % LLE WBAT or #) (%) M3 PT-IP Subjective Start: 11/19/20 11:47 Freq: NEEDED Status: Active Protocol: Document 11/20/20 16:07 SP (Rec: 11/20/20 19:16 SP [id number]) Subjective Physical Therapy Visit Type Type Treatment Note Visit Start Time 16:07 Visit Stop Time 16:40 Total Visit Minutes 33 Notes Potentially new DC plan, family member has a ground level condo that maybe able to use for few week during possible chemo treatments lately may need and family can assist her but no stairs and lots space to use her FWW. Revisit tomorrow, looking into tonight. Number of CHIEF OF POLICE Visits 2 Physical Therapy Visit Comments Patient Comments Pt agreeable to working with therapy. Patient Goals To return home with to assist her. Therapy Pain Assessment Pain When Pain Assessed During Mobility Pain Present Pain Present Pain Reported Location left hip Intensity 5 Scale Used Numeric (0 - 10) Description With Movement Pain Behaviors Facial Grimacing,Guarding, Restlessness,Wincing Pain Management Techniques Distraction,Re-positioning, Timing of Activity with Medications M4 PT-IP Mobility and Gait Start: 11/19/20 11:47 Freq: NEEDED Status: Active Protocol: Document 11/20/20 16:07 SP (Rec: 11/20/20 19:16 SP [id number]) PT-Bed Mobility Assessment Supine to Sit Supine to Sit Minimal Assistance,Head of Bed Elevated,Bedrails Sit to Supine Sit to Supine Minimal Assistance Scooting Scooting to Edge of Bed Minimal Assistance PT-Transfer Assessment Sit to and From Stand Sit to and from Stand Minimal Assistance,Moderate Assistance,1 Person Assistance ,Use of Upper Extremities Equipment Transfer Assistive Device Gait Belt,Front Wheeled Walker Orthotic/Prosthetic Devices or Brace: No Transfers Transfer Destination Bed,Toilet Transfer Technique Pt ambulated using fWW Transfer Ability Level of Assist Minimal Assistance,Moderate Assistance,1 Person Assistance ,Use of Upper Extremities Comments Mobility Comments Elevated supine>sit and scoot to EOB Min A for LLE repositioning and CGA during trunk righting. Sit<> stand Min A with cuing for proper hand placement from bed and position onto FWW. Ambulated step to gait patterning using FWW with heavy BUE WB and difficulty foot clearance bed to bathroom, CG- Min A and CHIEF OF POLICE managed IV pole bed to toilet approx 8 ft. Initially patient side stepping into bathroom using FWW, CGA and step pivot front toilet with cuing for body centering to toilet. Pt completed brief mgt with 1 UE support on grab bar , slow descent to toilet grab bar and FWW support Min A. Self hygiene but requried assist for change new brief over LE mgt in sitting. Sit> stand Mod A, walked to sink approx 10 ft w/ cue fww forward position to sink for support occasional contact sink for balance support while washed hands. Ambulated back to bed 5 ft w/ FWW CGA- Min A, Min A slow descent to EOB with cuing for proper hand placement. Sit>supine Min A for LLE onto bed then pt able to center herself using bed rails with BUE and RLE WB on bed. Pt had call light, bed alarm armed and all needs in reach. Gait Assessment Gait Gait Assistance Required: Contact Guard Assist,Minimum Assistance,1 Person Assist Distance (Feet) 10 Able to Maintain Weight Bearing Status Yes During Gait Assistive Devices Assistive Device Gait Belt,Front Wheeled Walker Orthotic/Prosthetic Devices or Brace: No Gait Deviations General Gait Pattern Antalgic,Decreased Stride Length,Decreased Feet Clearance,Flexed Trunk,Lateral Trunk Lean,Step-to Gait Factors Limiting Gait Function Factors Limiting Gait Function Decreased Activity Tolerance, Decreased Sensation,Decreased Strength,Limited Range of Motion,Pain,Poor Balance,Poor Safety Awareness Comments Gait Comments See mobility comments for details. Stair Climbing Assessment Comments Stair Climbing Comments Reassess caregiver training at 10 am w/ again tomorrow if plans to return to at [place]. PT-Balance Assessment Sitting Balance and Reactions Static Sitting Balance Ability Good Dynamic Sitting Balance Ability Good Standing Balance and Reactions Static Standing Balance Ability Fair Dynamic Standing Balance Ability Poor Device Used FWW M5 PT-IP Objective Assessments Start: 11/19/20 11:47 Freq: NEEDED Status: Active Protocol: Document 11/19/20 10:27 AB (Rec: 11/19/20 12:48 AB [id number]) Orientation Orientation/Cognition Level of Alertness Alert Orientation Name,Age,Birthday,Month,Date, Year,Day of Week,Place, Situation Language Function Ability No Deficits Noted Safety Awareness Understands Safety Issues Memory Description No Deficits Noted Gross Range of Motion Lower Extremity ROM Assessment Within Functional Limits Impairments increarse LLE muscle guarding due to pain Strength Lower Extremity Strength Assessment Left Impaired Hip 3-/5 Knee 3-/5 Sensation Assessment Sensation Light Touch Impaired Proprioception (Position) Impaired Comments Sensation Comments 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 M6 PT-IP Treatment Start: 11/19/20 11:47 Freq: NEEDED Status: Active Protocol: Document 11/20/20 16:07 SP (Rec: 11/20/20 19:16 SP [id number]) Physical Therapy Treatment Education Education Provided Precautions,Weight Bearing Status,Post-Op Packet,Safety M7 PT-IP Assessment and Plan Start: 11/19/20 11:47 Freq: NEEDED Status: Active Protocol: Document 11/20/20 16:07 SP (Rec: 11/20/20 19:16 SP [id number]) PT Summary Assessment and Plan Potential Rehabilitation Potential Fair Status of Condition at Evaluation Evolving Summary Impairments Pain,ROM,Strength,Balance, Coordination,Sensation,Tone, Cognition,Bed Mobility, Transfers,Gait,Activity Tolerance Progress Towards Goals Progressing Toward Goals,Slow Progress due to Pain,Slow Progress due to Medical Issues ,Slow Progress due to Activity Tolerance Assessment Summary pt improving slowly with mobility requiring min to mod A with transfers using FWW. d/ c plan condo ground level no step or stair enterance vs. home vs camper depending on progress and if spouse will be able to assist pt safely tomorrow 10 am 11/21/20. will continue to assess progress. Goals Bed Mobility Goal Standby Assistance Transfer Goal Standby Assistance Gait Goal Contact Guard Assistance Gait Distance 75 Other Goals improve ambulation using FWW 75 ft CGA up/down 2 steps 2 rails min A Days to Meet Goals 10 Frequency of Treatment Frequency Of Treatment Twice a Day Treatment Plan Physical Therapy Treatment Plan Bed Mobility Training,Transfer Training,Gait Training, Therapeutic Exercise,Balance Retraining,Post Op Education, Discharge Planning,Hot or Cold Pack,Neuromuscular Re-ed, Coordination Retraining,Manual Therapy Other Recommendations and Next Treatment bed mobility, transfers, Focus ambulation using FWW, caregiver training again 11/21 at 10 am fWW vs trekk poles and stair mgt again if DC RV. See assessment. Recommendations To Nursing Amount of Assist Needed 1 Person Assist Discharge Recommendations PT Discharge Recommendations Home with 24/7 Assist,Home Health,SNF Rehab Other Discharge Recommendations depending on progress: SNF vs home with 24/7 and HHPT Equipment Needed for Home Before None, acquired fWW and w/c if Discharge needed. Transportation Needs at Discharge Private Vehicle,Wheelchair/ Cabulance
[2020-11-20] MEDS: SODIUM CHLORIDE 0.9% 1,000 ML 100 ML IV (16:46)
[2020-11-20] MEDS: INSULIN GLARGINE 100 UNIT/ML 3ML PEN 10 UNIT SUBCUT (20:57)
[2020-11-21] VITALS (9 sets, daily range): BP systolic 134–166; BP diastolic 78–91; PULSE 91–109; RESP 14–20; TEMP 36.5–37.1; O2SAT 92–97
[2020-11-21] MEDS: INSULIN ASPART 100 UNIT/ML INSULN PEN SUBCUT ×8 (02:33→21:58)
[2020-11-21] MEDS: SODIUM CHLORIDE 0.9% 1,000 ML 100 ML IV (02:44)
[2020-11-21] MEDS: OXYCODONE IR 10 MG TABLET PO (03:24)
[2020-11-21 04:00] LABS: Add Manual Diff / Slide Review NO; Basophils Absolute Auto 0 /uL (0-100); Basophils Percent Auto 0.5 % (0-2); Eosinophils Absolute Auto 100 /uL (0-450); Eosinophils Percent Auto 2.3 % (2-4); Hemoglobin 8.3 g/dL (12.0-16.0); Lymphocytes Absolute Auto 1100 /uL (1100-4500); Lymphocytes Percent Auto 26.7 % (25-40); Mean Corpuscular HGB Conc 33.3 % (30-36); Mean Corpuscular Hemoglobin 30.1 PG (26-34); Mean Corpuscular Volume 90.4 fL (80-100); Monocytes Absolute Auto 400 /uL (0-900); Monocytes Percent Auto 9.2 % (3-14); Neutrophils Absolute Auto 2600 /uL (1500-7000); Neutrophils Percent Auto 61.3 % (50-75); Platelet Count 53 X10^3/uL (150-400); Red Blood Cell Count 2.77 X10^6/uL (4.0-5.2); Red Cell Distribution Width 14.4 % (11.6-14.8); White Blood Cell Count 4.3 X10^3/uL (4.5-11.0)
[2020-11-21 04:07] LABS: Alanine Aminotransferase 19 IU/L (<35); Albumin 2.9 g/dL (3.5-5.0); Albumin Globulin Ratio 1.1 (1.0-2.8); Alkaline Phosphatase 122 U/L (38-126); Aspartate Aminotransferase 31 IU/L (14-36); Bilirubin Total 0.5 mg/dL (0.2-1.3); Bilirubin Unconjugated 0.5 mg/dL (0.0-1.1); Blood Urea Nitrogen 23 mg/dL (7-17); Calcium 10.3 mg/dL (8.4-10.2); Carbon Dioxide 28 mmol/L (22-32); Chloride 109 mmol/L (98-107); Estimated Glomerular Filt Rate > 60.0 mL/min (>60); Globulin 2.6 g/dL (1.7-4.1); Glucose 232 mg/dL (70-100); HEMOLYSIS < 15 (0-50); Magnesium 1.9 mg/dL (1.6-2.3); Sodium 137 mmol/L (137-145); Total Protein 5.5 g/dL (6.3-8.2)
[2020-11-21] MEDS: polyethylene glycoL 3350 17 GM POWD.PACK PO (08:53)
[2020-11-21] MEDS: ACETAMINOPHEN 325 MG TABLET 975 MG PO ×3 (08:54→21:57)
[2020-11-21] MEDS: MAGNESIUM OXIDE 400 MG TABLET PO ×2 (08:54→21:57)
[2020-11-21] MEDS: DOCUSATE 100 MG CAPSULE PO ×2 (08:54→21:57)
[2020-11-21] MEDS: lisinopriL 20 MG TABLET PO ×2 (08:54→21:57)
[2020-11-21] MEDS: HYDROMORPHONE 0.5 MG INJ IV ×2 (08:59→15:05)
--- NOTE | 2020-11-21 11:25 | PM.PN.1 ---
Subjective Subjective Date Patient Seen: 11/21/20 Time Patient Seen: 11:25 Interval history: Patient is POD# 3 s/p left long cephalomedullary nail for a metastatic lesion to the left intertrochanteric femur region with Meril's score of [address] Saldaña. Pain was moderate overnight, but states when she is on a regular schedule pain is adequately managed. She is mobilizing with PT. Voiding independently. Tolerating a diet. No complaints. Exam Vital Signs (past 8 hours): - 11/21/20 03:31 11/21/20 07:08 11/21/20 08:54 Temperature 98.8 F 98.6 F Pulse Rate 94 H 91 H 99 H Respiratory Rate 16 14 Blood Pressure 165/88 H 151/91 H 166/87 H Pulse Oximetry 95 97 Oxygen Delivery Method Room Air Oxygen Flow Rate 0 Narrative Exam Narrative: 60 year old female resting in chair, alert and oriented in no acute distress. Aquacel dressings in place on lateral hip both with area of shadow drainage at center of dressing which has not grown. Neurovascularly intact in distal extremity. Objective Labs Result Diagrams: 11/21/20 03:45 11/21/20 03:45 Labs: Laboratory Results - last 24 hr 11/20/20 11/21/20 11/21/20 05:00 03:45 03:45 WBC 4.3 L RBC 2.77 L Hgb 8.3 L Hct 25.0 L MCV 90.4 MCH 30.1 MCHC 33.3 RDW 14.4 Plt Count 53 L Neut % (Auto) 61.3 Lymph % (Auto) 26.7 [place] % (Auto) 9.2 Eos % (Auto) 2.3 Baso % (Auto) 0.5 Neut # (Auto) 2600 Lymph # (Auto) 1100 [place] # (Auto) 400 Eos # (Auto) 100 Baso # (Auto) 0 Sodium 137 Potassium 4.0 Chloride 109 H Carbon Dioxide 28 BUN 23 H Creatinine 0.82 Estimated GFR > 60.0 BUN/Creatinine Ratio 28.0 H Glucose 232 H Calcium 10.3 H Magnesium 1.9 Total Bilirubin 0.5 Conjugated Bilirubin 0.0 Unconjugated Bilirubin 0.5 AST 31 ALT 19 Alkaline Phosphatase 122 Total Protein 5.5 L Albumin 2.9 L Globulin 2.6 Albumin/Globulin Ratio 1.1 25-OH Vitamin D Total 26.1 L [facility] Medical History Breast cancer Imbalance of muscle of eye Multiple lesions of metastatic malignancy Surgical History History of eye surgery History of lumpectomy History of total abdominal hysterectomy History of vascular access device Status post surgery (03/15/13) Family History Father No significant medical problems Mother Stroke Diabetes mellitus Daughter Diabetes mellitus Social History household members: spouse and children Smoking Status: Never smoker alcohol intake: current Assessment & Plan Assessment & Plan narrative: -POD#3 s/p cephomedullary nail. Patient progressing slowly as expected postoperatively. -Continue present pain management and to work with PT/OT. -ASA 81mg BID for DVT prophylaxis. -Aquacel dressing should be replaced with clean Aquacel prior to discharge. -Follow up with Dr. Saldaña in 2 weeks outpatient. -Stable for discharge from orthopedics standpoint once she is medically stable per hospitalist. Quality VTE Deep Vein Thrombosis/Pulmonary Embolism Present on Admission: No
--- NOTE | 2020-11-21 12:32 | PT.IPTN ---
Addendum entered and electronically signed by Renetta Manuel PTA 11/21/20 13:19: Did not assess stairs this tx. Original Note: Current Diagnoses Secondary malignant neoplasm of bone (11/19/20) Surgery Performed Operation Date: 11/18/20 14:00 Actual Procedures p Left Long Cephalomedulary IM Femoral nail(Left) - Baltazar Saldaña MD Physical Therapy Treatment Note M2 PT-IP Current Condition Start: 11/19/20 11:47 Freq: NEEDED Status: Active Protocol: Document 11/19/20 10:27 AB (Rec: 11/19/20 12:48 AB [id number]) Physical Therapy Current Condition Current Condition Evaluation Date 11/19/20 Treatment Diagnosis s/p L hip nailing; difficulty in walking Onset Date 11/18/19 Weight Bearing Status Weight Bearing Status Weight Bear as Tolerated Allowed Weight Bearing Amount (enter % LLE WBAT or #) (%) M3 PT-IP Subjective Start: 11/19/20 11:47 Freq: NEEDED Status: Active Protocol: Document 11/21/20 12:07 SP (Rec: 11/21/20 13:18 SP [id number]) Subjective Physical Therapy Visit Type Type Treatment Note Visit Start Time 12:07 Visit Stop Time 12:32 Total Visit Minutes 25 Notes was present and provided physical assist, completed caregiver training. 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 Patient Goals To return to her home with to assist her. Therapy Pain Assessment Pain When Pain Assessed During Mobility Pain Present Pain Present Pain Reported M4 PT-IP Mobility and Gait Start: 11/19/20 11:47 Freq: NEEDED Status: Active Protocol: Document 11/21/20 12:07 SP (Rec: 11/21/20 13:18 SP [id number]) PT-Transfer Assessment Sit to and From Stand Sit to and from Stand Contact Guard Assistance, Minimal Assistance,1 Person Assistance,Use of Upper Extremities Equipment Transfer Assistive Device Gait Belt,Front Wheeled Walker Orthotic/Prosthetic Devices or Brace: No Transfers Transfer Destination Toilet Transfer Technique Pt ambulated using fWW Transfer Ability Level of Assist Contact Guard Assistance,1 Person Assistance,Use of Upper Extremities Comments Mobility Comments Pt in chair when arrived. donned gait belt. Sit> stand CGA with cuing for proper hand placement to push from chair arms, should I not use the chair arms because I don't have at home? commented yes for now, we will figure that out when get home. Pt walked further tx distance into hallway and back to the bathroom approx 80 ft total, CGA by . Pt back stepping into bathroom using FWW CGA, managed brief self and grab bar/FWW for slow descent to toilet, CGA- Silvana by . Pt was able to complete hygiene needs insitting, required assist of as needed in standing for further hygiene needs CGA while pt self support grab bar and FWW. OT arrived, passed off care. Gait Assessment Gait Gait Assistance Required: Contact Guard Assist,1 Person Assist Distance (Feet) 80 Able to Maintain Weight Bearing Status Yes During Gait Assistive Devices Assistive Device Gait Belt,Front Wheeled Walker Orthotic/Prosthetic Devices or Brace: No Gait Deviations General Gait Pattern Antalgic,Decreased Stride Length,Decreased Feet Clearance,Flexed Trunk,Lateral Trunk Lean,Step-to Gait Factors Limiting Gait Function Factors Limiting Gait Function Decreased Activity Tolerance, Decreased Strength,Limited Range of Motion,Pain,Poor Balance,Poor Safety Awareness Comments Gait Comments See mobility comments for details. Stair Climbing Assessment Comments Stair Climbing Comments Pt will not have stairs at home to reassess, does have a step to get into trunk upon DC , previously step forward and pivot around holding handles, can assess next tx at beside assimulation w/ bed rail and to assist. PT-Balance Assessment Sitting Balance and Reactions Static Sitting Balance Ability Good Dynamic Sitting Balance Ability Good Standing Balance and Reactions Static Standing Balance Ability Good Dynamic Standing Balance Ability Fair Device Used FWW M5 PT-IP Objective Assessments Start: 11/19/20 11:47 Freq: NEEDED Status: Active Protocol: Document 11/19/20 10:27 AB (Rec: 11/19/20 12:48 AB [id number]) Orientation Orientation/Cognition Level of Alertness Alert Orientation Name,Age,Birthday,Month,Date, Year,Day of Week,Place, Situation Language Function Ability No Deficits Noted Safety Awareness Understands Safety Issues Memory Description No Deficits Noted Gross Range of Motion Lower Extremity ROM Assessment Within Functional Limits Impairments increarse LLE muscle guarding due to pain Strength Lower Extremity Strength Assessment Left Impaired Hip 3-/5 Knee 3-/5 Sensation Assessment Sensation Light Touch Impaired Proprioception (Position) Impaired Comments Sensation Comments 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 M6 PT-IP Treatment Start: 11/19/20 11:47 Freq: NEEDED Status: Active Protocol: Document 11/21/20 12:07 SP (Rec: 11/21/20 13:18 SP [id number]) Physical Therapy Treatment Education Education Provided Precautions,Weight Bearing Status,Safety M7 PT-IP Assessment and Plan Start: 11/19/20 11:47 Freq: NEEDED Status: Active Protocol: Document 11/21/20 12:07 SP (Rec: 11/21/20 13:18 SP [id number]) PT Summary Assessment and Plan Potential Rehabilitation Potential Fair Status of Condition at Evaluation Evolving Summary Impairments Pain,ROM,Strength,Balance, Coordination,Sensation,Tone, Cognition,Bed Mobility, Transfers,Gait,Activity Tolerance Progress Towards Goals Progressing Toward Goals,Slow Progress due to Pain,Slow Progress due to Medical Issues ,Slow Progress due to Activity Tolerance Assessment Summary Pt improving in mobility, requires CG-Min A with transfers using FWW. d/c plan is home with spouse 05/06 assist her. acquired w /c and fWW for use at home. Pt would benefit continued acute PT for strength and endurance in standing and 1 step mgt to get into truck w/ handle support. Will continue to assess progress. Goals Bed Mobility Goal Standby Assistance Transfer Goal Standby Assistance Gait Goal Contact Guard Assistance Gait Distance 75 Other Goals improve ambulation using FWW 75 ft CGA up/down 2 steps 2 rails min A Days to Meet Goals 10 Frequency of Treatment Frequency Of Treatment Twice a Day Treatment Plan Physical Therapy Treatment Plan Bed Mobility Training,Transfer Training,Gait Training, Therapeutic Exercise,Balance Retraining,Post Op Education, Discharge Planning,Hot or Cold Pack,Neuromuscular Re-ed, Coordination Retraining,Manual Therapy Other Recommendations and Next Treatment LE ther ex, bed mobility, Focus transfers, gait distance w/ FWW, 1 step mgt for getting into truck (elevated bed w/ bed rail and walking stick or MSW). Recommendations To Nursing Amount of Assist Needed 1 Person Assist Discharge Recommendations PT Discharge Recommendations Home with 05/06 Assist,Home Health Transportation Needs at Discharge Private Vehicle,Wheelchair/ Cabulance
--- NOTE | 2020-11-21 13:06 | OT.IP.TRT ---
Current Diagnoses Secondary malignant neoplasm of bone (11/19/20) Surgery Performed Operation Date: 11/18/20 14:00 Actual Procedures p Left Long Cephalomedulary IM Femoral nail(Left) - Baltazar Saldaña MD Occupational Therapy Treatment Note M2 OT-IP Current Condition Start: 11/20/20 12:26 Freq: Status: Active Protocol: Document 11/20/20 12:26 CGR (Rec: 11/20/20 13:10 CGR [id number]) Occupational Therapy Current Condition Current Condition Evaluation Date 11/20/20 Treatment Diagnosis Metastatic leasion with pathological fx s/p 11/18 IM nailing. Diagnosis Onset Date 11/18/20 Weight Bearing Status Weight Bearing Status Weight Bear as Tolerated M3 OT- IP Subjective and Pain Start: 11/20/20 12:26 Freq: Status: Active Protocol: Document 11/21/20 16:39 CGR (Rec: 11/21/20 16:57 CGR [id number]) OT- Subjective Occupational Therapy Visit Type Type Progress Note Visit Start Time 12:28 Visit Stop Time 13:06 Total Visit Minutes 38 Notes present for some of treatment. OT Pain Assessment Pain When Pain Assessed During Mobility Pain Present Pain Present Pain Reported Location left hip Scale Used did not rate Management Techniques Distraction,Modification of Treatment,Re-positioning M4 OT- IP ADL's Start: 11/20/20 12:26 Freq: Status: Active Protocol: Document 11/21/20 16:39 CGR (Rec: 11/21/20 16:57 CGR [id number]) OT [id number] Comments OT Self-Feeding Comments Not meal time OT ADL-Grooming Comments OT Grooming Comments Pt declined OT ADL-Oral Care Comments Oral Care Comments Pt declined OT ADL-Dressing Comments OT Dressing Comments Pt declined OT ADL-Toileting General Evaluation Toileting Ability Standby Assistance Devices Toileting Assistive Devices Grab Bars Comments OT Toileting Comments Pt having difficulty with BM. Pt provided glove per request but was unable to facilitate BM. Pt is requesting MD martha notified. OT ADL-Bathing Comments OT Bathing Comments Not performed M5 OT- IP IADL's Start: 11/20/20 12:26 Freq: Status: Active Protocol: Document 11/20/20 12:26 CGR (Rec: 11/20/20 13:10 CGR [id number]) OT-Instrumental Activities of Daily Living Deficits IADL Deficits Identified Deficits Home Safety Awareness Awareness of Need for Assistance at Home Decreased Awareness Ability to Problem Solve Emergency Unable to Problem Solve Situations Home Safety Comments Pt demonstrates poor safety awareness and problem solving M6 OT- IP Functional Cognition Start: 11/20/20 12:26 Freq: Status: Active Protocol: Document 11/21/20 16:39 CGR (Rec: 11/21/20 16:57 CGR [id number]) Cognitive Factors Limiting Selfcare Function Cognitive Ability Level of Alertness Alert Patient Orientation Name,Month,Year,Day of Week, Place,Situation Cognitive Tests MOCA Pt was agreeable to MOCA. Pt scored a 17/30. A score of 17 is consistent with moderate cognitive disfunction. A score of 26 or above would be considered normal. Pt had difficulty with visuospatial and executive functioning, memeory, attention, language and delayed recall. She scored full points for naming, abstraction, and missed 1 of 6 orientation questions. Cognitive Comments Cognitive Assessment Comments Pt demonstrates moderate cognitive disfunction per MOCA results. Pt states that she has had difficulty with aspects of cognition since her CVA. OT- Vision and Hearing OT- Vision Assessment Vision Assessment Comments Pt states that her strabismus is typical and that she has had it since she was a child. M7 OT- IP Mobility and Balance Start: 11/20/20 12:26 Freq: Status: Active Protocol: Document 11/21/20 16:39 CGR (Rec: 11/21/20 16:57 CGR [id number]) OT- Bed Mobility Assessment Sit to Supine Sit to Supine Assist Moderate Assistance,1 Person Assistance,Head of Bed Elevated OT-Transfer Assessment Sit to and From Stand Sit to and from Stand Standby Assistance Transfers Transfer Ability Minimal Assistance Technique Transfer Destination Bed,Chair,Toilet Transfer Technique Stand Step Pivot Devices Transfer Assistive Devices Gait Belt,Front Wheeled Walker Comments Mobility Comments Pt ambulates without assist using the 2WW and gait belt but needs assist with positioning prior to sitting. Pt needs VC to back up fully and center on toilet, chair and bed tending to be to far to her right. OT- Gait Assessment Gait Gait Assistance Required: Standby Assistance Assistive Devices Assistive Device Gait Belt,Front Wheeled Walker OT- Balance Assessment Sitting Balance and Reactions Static Sitting Balance Ability Good Dynamic Sitting Balance Ability Fair Standing Balance and Reactions Static Standing Balance Ability Good Dynamic Standing Balance Ability Fair M8 OT- IP Objective Assessments Start: 11/20/20 12:26 Freq: Status: Active Protocol: Document 11/20/20 12:26 CGR (Rec: 11/20/20 13:10 CGR [id number]) OT Gross Range of Motion Upper Extremity Range of Motion Assessment Within Functional Limits OT Strength Upper Extremity Strength Assessment Within Functional Limits OT- Coordination Assessment Upper Extremity Finger to Nose Test Within Functional Limits Finger Tapping Test Within Functional Limits OT-Muscle Tone Assessment Muscle Tone WNL Yes OT Sensation Assessment Edema Edema Absent M9 OT- IP Assessment and Plan Start: 11/20/20 12:26 Freq: Status: Active Protocol: Document 11/21/20 16:39 CGR (Rec: 11/21/20 16:57 CGR [id number]) OT Summary Assessment and Plan Potential Rehabilitation Potential Good Analytic Complexity at Evaluation Moderate Summary OT Impairments Pain,Balance,Functional Cognition,Functional Mobility, Dressing,Toileting,Bathing, Toilet Transfers,Shower Transfers,Activity Tolerance Progress Towards Goals Slow Progress due to Pain,Slow Progress due to Cognition Assessment Summary Pt presents as a moderate complexity evaluation s/p admit for metastatic lesion with pathological fx s/p 11/18 IM nailing. Pt is mobilizing with SBA to CGA and Min a for transfers d/t assist with proper positioning. Pt tends to be too far right and need VC to back up fully. Pt and are now planning to return to their [place] till pt is able to mobilize safely without the walker. Pt performed MOCA on this date with a score of 17/30 indicating moderate cognitive impairment. MD notified. Pt is likely safe for discharge home with very supportive . Goals Self-Feeding Goal Independent Grooming Goal Independent Dressing Goal Independent Toileting Goal Independent Bathing Goal Independent Toilet Transfer Goal Independent Shower Transfer Goal Independent Days to Meet Goals 10 Frequency of Treatment Frequency Of Treatment Once a Day Treatment Plan OT Treatment Plan ADL Training,Functional Cognition Training,Functional Mobility,Patient/Family Education,Discharge Planning Other Treatment Recommendations and Next shower Treatment Focus Discharge Recommendations OT Discharge Recommendations Home with Assistance Home Equipment Needs 2ww, shower seat Transportation Needs at Discharge Private Vehicle
--- NOTE | 2020-11-21 13:36 | DI.CT.S_ITS ---
PROCEDURE: CT CHEST ABD PEL W CON INDICATIONS: metastatic evaluation, breast CA with hip mets TECHNIQUE: After the administration of intravenous contrast, 5 mm thick sections acquired from the lung apices to the symphysis. 5 mm coronal and sagittal reformats were performed, with additional 7 mm MIP reformats through the lungs. For radiation dose reduction, the following was used: automated exposure control, adjustment of mA and/or kV according to patient size. COMPARISON: None. FINDINGS: Image quality: Excellent. CHEST: Lungs and pleura: Reticular thickening in the left upper lobe subpleural. This is likely due to prior radiation therapy. A few calcified granuloma. No pleural effusions or pneumothorax. Central and peripheral airways appear patent and normal in caliber. Mediastinum: Right-sided port with the catheter tip in the upper 3rd of the SVC. Heart size is normal. No pericardial effusion. No mediastinal or hilar adenopathy by size criteria. Thoracic aorta and central pulmonary arteries are normal in size. Esophagus is normal in caliber. No hiatal hernia. Chest wall: Postoperative change in the left breast. No axillary or supraclavicular adenopathy by size criteria. Thyroid gland is unremarkable. ABDOMEN: Solid organs: Cirrhotic liver morphology. Gallbladder it is distended. Biliary system is non dilated. Pancreas enhances normally. Splenomegaly measuring 15.9 cm. No adrenal nodules. Kidneys demonstrate normal size and enhancement, without hydronephrosis. Multiple small nonobstructing kidney stones bilaterally. Several simple appearing renal cysts bilaterally. A few cortical cysts which are too small to further characterize. Peritoneum and bowel: Stomach is not distended. There is trace fluid adjacent to the 2nd portion of the duodenum. No small bowel obstruction. Normal appendix. Prominent stool in the colon. Mild ascites. No pneumoperitoneum. Nodes and vessels: Shotty mediastinal and retroperitoneal lymph nodes. Aorta and inferior vena cava are normal in size. Miscellaneous: No ventral hernias. PELVIS: Genitourinary: Bladder wall thickness is normal. Globular appearing uterus likely due to fibroids. Miscellaneous: No inguinal hernias or adenopathy. Small hematoma in the subcutaneous tissues of the left hip. Intramuscular high-density material within the left gluteus medius, (3/122). Small amount of subcutaneous and intramuscular gas. Bones: No suspicious bony lesions. No vertebral body compression fractures. Left hip intramedullary key and screw fixation. IMPRESSION: 1. Lesion in the left gluteus medius with high-density material which could be due to calcifications or hemorrhage. There is subcutaneous gas and small hematoma and intramuscular gas. This may be due to recent biopsy or abscess. 2. Cirrhosis, splenomegaly, mild ascites. 3. Nonspecific shotty mesenteric and retroperitoneal lymph nodes. 4. Right adnexal mass measuring at 3.6 cm. -Recommend initial evaluation with pelvic ultrasound. Dictated by: Navjot Hoyos M.D. on 11/21/2020 at 14:45 Approved by: Navjot Hoyos M.D. on 11/21/2020 at 15:02
--- NOTE | 2020-11-21 13:37 | DI.CT.S_ITS ---
PROCEDURE: CT HEAD/BRAIN W CON INDICATIONS: metastatic evaluation, breast CA with hip mets TECHNIQUE: 4.5 mm thick angled axial sections acquired from the foramen magnum to the vertex after the administration of intravenous contrast, with coronal and sagittal reformats. For radiation dose reduction, the following was used: automated exposure control, adjustment of mA and/or kV according to patient size. COMPARISON: None. FINDINGS: Image quality: Excellent. CSF Spaces: Basal cisterns are patent. No extra-axial fluid collections. Ventricles are normal in size and shape. Brain: No midline shift. No intracranial bleeds or masses. No abnormal intracranial enhancement. Vargas-white interface appears normal. Skull and face: Calvarium and visualized facial bones appear intact, without suspicious lesions. Sinuses: Visualized sinuses and mastoids are clear. IMPRESSION: No acute intracranial abnormality. No metastatic lesions seen. Dictated by: Navjot Hoyos M.D. on 11/21/2020 at 14:23 Approved by: Navjot Hoyos M.D. on 11/21/2020 at 14:26
--- NOTE | 2020-11-21 13:47 | PT-IP ANOTE ---
Attempted to see pt at 13:47, pt refused therapy x2 stating that she is fatigued. Will check back in AM.
--- NOTE | 2020-11-21 15:55 | P.PN_ITS ---
Subjective Subjective Date Patient Seen: 11/21/20 Time Patient Seen: 08:15 Interval history: This is a 60-year-old female patient with a known history of breast cancer having received chemo therapy hormone therapy and radiation therapy who presents to the orthopedist's office for right hip pain increasing over 3 weeks developing severe groin pain that is worsened with ambulation who was admitted after a metastasis was found in her left femur, she underwent opera tive pinning for stabilization with Dr. Saldaña, orthopedic surgery. She reports mild increased pain today. Her Hg is still downtrending somewhat, now at 8.3. Will continue to follow. Glucose still elevated at 232. Calcium still elevated after Zometa but remains asymptomatic. Ordered CT chest /abdomen/pelvis for further evaluation of possible metastases and concern for cognitive impairment noted by OT, DIEGOUMS score 17/30. Exam Vital Signs (past 8 hours): - 11/21/20 08:54 11/21/20 11:45 Temperature 98.3 F Pulse Rate 99 H 103 H Respiratory Rate 16 Blood Pressure 166/87 H 134/91 H Pulse Oximetry 97 Oxygen Delivery Method Room Air Oxygen Flow Rate 0 Narrative Exam Narrative: GENERAL APPEARANCE: well developed, obese female. No acute dystress. HEENT: Normocephalic, PERRLA, conjunctiva clear, sclera is anicteric, eye asymmetry, dysconjugate gaze with right eye esotropia, mucous membranes are moist and pink. NECK/THYROID: neck supple, no JVD, no thyromegaly, trachea midline. LYMPH NODES: no cervical or supraclavicular lymphadenopathy. SKIN: [place], warm and dry, no visible lesions, rashes, ulcerations or petechiae. HEART: regular rate and rhythm, S1-S2, no murmur, no rubs or gallops, brisk capillary refill, no edema LUNGS: clear to auscultation bilaterally, no coarseness crackles or wheezing, no cough present CHEST: Symmetrical movement, no accessory muscle use, good tidal volume. ABDOMEN: Soft, no distention, no abdominal tenderness, no guarding or peritoneal signs, no organomegaly, no flank or suprapubic tenderness, active bowel tones. BACK: Normal curvature, nontender to palpation, no CVA tenderness on percussion EXTREMITIES: Surgical dressing left hip and lateral distal femur clean dry and intact, distal CMS intact, no deformities or joint effusions. NEUROLOGIC: AAO to person place and situation, no focal neurologic deficits, sensation intact to light touch, hearing grossly normal to speech. PSYCH: Drowsy postoperatively, slow to respond to questions, cooperative. Objective Labs Result Diagrams: 11/21/20 03:45 11/21/20 03:45 Labs: Laboratory Results - last 24 hr 11/21/20 11/21/20 03:45 03:45 WBC 4.3 L RBC 2.77 L Hgb 8.3 L Hct 25.0 L MCV 90.4 MCH 30.1 MCHC 33.3 RDW 14.4 Plt Count 53 L Neut % (Auto) 61.3 Lymph % (Auto) 26.7 [place] % (Auto) 9.2 Eos % (Auto) 2.3 Baso % (Auto) 0.5 Neut # (Auto) 2600 Lymph # (Auto) 1100 [place] # (Auto) 400 Eos # (Auto) 100 Baso # (Auto) 0 Sodium 137 Potassium 4.0 Chloride 109 H Carbon Dioxide 28 BUN 23 H Creatinine 0.82 Estimated GFR > 60.0 BUN/Creatinine Ratio 28.0 H Glucose 232 H Calcium 10.3 H Magnesium 1.9 Total Bilirubin 0.5 Conjugated Bilirubin 0.0 Unconjugated Bilirubin 0.5 AST 31 ALT 19 Alkaline Phosphatase 122 Total Protein 5.5 L Albumin 2.9 L Globulin 2.6 Albumin/Globulin Ratio 1.1 [facility] Medical History Breast cancer Imbalance of muscle of eye Multiple lesions of metastatic malignancy Surgical History History of eye surgery History of lumpectomy History of total abdominal hysterectomy History of vascular access device Status post surgery (03/15/13) Family History Father No significant medical problems Mother Stroke Diabetes mellitus Daughter Diabetes mellitus Social History household members: spouse and children Smoking Status: Never smoker alcohol intake: current Assessment & Plan Assessment & Plan narrative: This is a 60-year-old female patient with a known history of breast cancer having received chemo therapy hormone therapy and radiation therapy who presents to the orthopedist's office for right hip pain increasing over 3 weeks developing severe groin pain that is worsened with ambul ation who was admitted after a metastasis was found in her left femur, she underwent operative pinning for stabilization with Dr. Saldaña, orthopedic surgery. 1. Metastatic left intertrochanteric femur lesion, acute, present on admission, active. -patient with progressive left hip pain over 3 week. Radiating to the groin worsening with ambulation. -plain film imaging of the hip and pelvis finds no etiology for the pain therefore MRI Was obtained which finds multiple metastatic disease in the pelvis and bilateral hips largest lesion in the left intertrochanteric femur and femoral neck. -orthopedics directed the patient to the ER due to the lytic lesion in risk of impending pathologic fracture with plans to take the patient to the OR for intramedullary nailing. -Dr. Saldaña has taken the patient to the OR and is status post cephalomedullary nail on the left femur. -postoperative orthopedic care per the orthopedic team. 2. Metastatic breast cancer, chronic -patient states he was diagnosed with breast cancer approximately 3 and half years ago and has undergone chemo hormone and radiation therapies with last treatment being 2 months ago. -patient receives her cancer care at [facility]. -recommend outpatient follow up with her oncologist after discharge. CT repeated today, CT c/a/p pending, head negative. -given dose of zometa x1 as noted below. 3. Hyperglycemia without diagnosis of diabetes, present on admission, active. -patient without history of diabetes and no medical therapy for hyperglycemia. Blood sugar on admission labs is 259. -obtained a hemoglobin A1c which is found to be 8.8 consistent with an approximate average blood sugar of 200. -ordered fingerstick blood sugars a.c. and hs with correctional insulin high- dose scale. Now up to 14 U lantus, 4 U TID AC short acting, continue to adjust as necessary. -diet changed from regular diet to small consistent carbohydrate to enhance glycemic control and reduce risk for infection. -will likely discharge on oral therapy and insulin given poor control here. 4. Mild hypercalcemia, acute versus chronic, present on admission, active. -hypercalcemia likely multifactorial, chronic related malignancy, lytic bone lesions as well as exacerbated by hyperglycemia and relative dehydration evidence by elevated BUN and BUN creatinine ratio as well as her thiazide. -HCTZ discontinued. patient was continued on normal saline, have stopped with slight increase and will give zometa today as noted below. -Corrected calcium is 11.3 on today's lab, improved from 11.9 on admission, but still mildly elevated. The patient has no current symptoms. -given Zometa 4 mg 11/20. Have ordered her for PTH and vitamin-D levels which do take some time to return. 5. Abnormal EKG, acute versus chronic, present on admission, active. -patient denies complaints of chest pain or palpitations, has risk factors including hypertension, diabetes not previously diagnosed and obesity. -preoperative 12 lead EKG reveals sinus rhythm at rate of 80 with a right bundle branch block left axis shift with notation of inverted T-waves in lead 3 and AVF. -repeated 12 lead EKG postoperatively an EKG is unchanged. -troponin was negative. 6. Acute blood loss anemia - secondary to surgery. Hg has dropped to 8.3 today. Will continue to monitor, check iron panel in AM. VTE prophylaxis: Contraindicated due to thrombocytopenia. Diet: Small consistent carbohydrate Code status: DNR, the patient designates her to be surrogate decision maker. Dispo: Home with assistance and home health, anticipate discharge likely rupesh Maloney VTE Deep Vein Thrombosis/Pulmonary Embolism Present on Admission: No
[2020-11-21] MEDS: INSULIN GLARGINE 100 UNIT/ML 3ML PEN 14 UNIT SUBCUT (21:58)
[2020-11-22] VITALS (8 sets, daily range): BP systolic 128–153; BP diastolic 78–89; PULSE 89–96; RESP 14–18; TEMP 36.3–37; O2SAT 93–98
[2020-11-22 04:45] LABS: BUN Creatinine Ratio 25.7 (6-22); Blood Urea Nitrogen 19 mg/dL (7-17); Calcium 9.9 mg/dL (8.4-10.2); Carbon Dioxide 29 mmol/L (22-32); Chloride 110 mmol/L (98-107); Estimated Glomerular Filt Rate > 60.0 mL/min (>60); Glucose 169 mg/dL (70-100); HEMOLYSIS < 15 (0-50); Sodium 139 mmol/L (137-145)
[2020-11-22 04:57] LABS: Add Manual Diff / Slide Review NO; Basophils Absolute Auto 0 /uL (0-100); Basophils Percent Auto 0.5 % (0-2); Eosinophils Absolute Auto 100 /uL (0-450); Eosinophils Percent Auto 2.4 % (2-4); Hematocrit 22.9 % (36-46); Hemoglobin 7.9 g/dL (12.0-16.0); Lymphocytes Absolute Auto 800 /uL (1100-4500); Lymphocytes Percent Auto 27.2 % (25-40); Mean Corpuscular HGB Conc 34.4 % (30-36); Mean Corpuscular Hemoglobin 31.2 PG (26-34); Mean Corpuscular Volume 90.5 fL (80-100); Monocytes Absolute Auto 300 /uL (0-900); Monocytes Percent Auto 8.6 % (3-14); Neutrophils Absolute Auto 1800 /uL (1500-7000); Neutrophils Percent Auto 61.3 % (50-75); Platelet Count 54 X10^3/uL (150-400); Red Blood Cell Count 2.53 X10^6/uL (4.0-5.2); Red Cell Distribution Width 14.4 % (11.6-14.8)
[2020-11-22 04:58] LABS: HEMOLYSIS < 15 (0-50); Iron 23 ug/dL (37-170)
[2020-11-22 05:09] LABS: Percent Iron Saturation 8 % (15-50); Total Iron Binding Capacity 272 ug/dL (265-497); Transferrin 188 mg/dL (206-381)
--- NOTE | 2020-11-22 05:25 | PC.NURSE ---
pt H/H is 7.9/22.9, notified hospitalist of the drop. no new verbal orders
[2020-11-22] MEDS: OXYCODONE IR 10 MG TABLET PO (05:59)
[2020-11-22 07:36] LABS: Calcium 10.2 mg/dL (8.7-10.2); Parathyroid Hormone, Intact 438 pg/mL (15-65)
--- NOTE | 2020-11-22 08:27 | PM.PNPO.1 ---
Subjective Subjective Date Patient Seen: 11/22/20 Time Patient Seen: 08:27 Interval history: She has been slowly mobilizing. Pain under control with oral medication. Exam Vital Signs (past 8 hours): - 11/22/20 04:00 Temperature 98.6 F Pulse Rate 89 Respiratory Rate 18 Blood Pressure 145/89 H Pulse Oximetry 98 Oxygen Delivery Method Room Air Oxygen Flow Rate 0 Const Orientation: alert and oriented x3 Extrem Other: Left hip-moderately swollen with ecchymosis traveling down the proximal thigh laterally and also into the buttocks. No tension to palpation. Mild drainage on dressing. Soft calf, easily wiggles toes. Objective Labs Result Diagrams: 11/22/20 04:24 11/22/20 04:24 Labs: Laboratory Results - last 24 hr 11/21/20 11/22/20 11/22/20 03:45 04:24 04:24 WBC 3.0 L RBC 2.53 L Hgb 7.9 L Hct 22.9 L MCV 90.5 MCH 31.2 MCHC 34.4 RDW 14.4 Plt Count 54 L Neut % (Auto) 61.3 Lymph % (Auto) 27.2 [place] % (Auto) 8.6 Eos % (Auto) 2.4 Baso % (Auto) 0.5 Neut # (Auto) 1800 Lymph # (Auto) 800 L [place] # (Auto) 300 Eos # (Auto) 100 Baso # (Auto) 0 Sodium Potassium Chloride Carbon Dioxide BUN Creatinine Estimated GFR BUN/Creatinine Ratio Glucose Calcium Iron 23 L TIBC 272 % Saturation 8 L Transferrin 188 L PTH Intact 438 H Calcium (PTH Intact) 10.2 PTH Intact Intraop Comment 11/22/20 04:24 WBC RBC Hgb Hct MCV MCH MCHC RDW Plt Count Neut % (Auto) Lymph % (Auto) [place] % (Auto) Eos % (Auto) Baso % (Auto) Neut # (Auto) Lymph # (Auto) [place] # (Auto) Eos # (Auto) Baso # (Auto) Sodium 139 Potassium 4.0 Chloride 110 H Carbon Dioxide 29 BUN 19 H Creatinine 0.74 Estimated GFR > 60.0 BUN/Creatinine Ratio 25.7 H Glucose 169 H Calcium 9.9 Iron TIBC % Saturation Transferrin PTH Intact Calcium (PTH Intact) PTH Intact Intraop [facility] Medical History Breast cancer Imbalance of muscle of eye Multiple lesions of metastatic malignancy Surgical History History of eye surgery History of lumpectomy History of total abdominal hysterectomy History of vascular access device Status post surgery (03/15/13) Family History Father No significant medical problems Mother Stroke Diabetes mellitus Daughter Diabetes mellitus Social History household members: spouse and children Smoking Status: Never smoker alcohol intake: current Assessment & Plan Post-op Postoperative Procedures: Procedures Operation Date: 11/18/20 14:00 Actual Procedures Side Surgeon p Left Long Cephalomedulary IM Femoral nail Left Baltazar Saldaña MD Status post IM nail for metastatic breast cancer and pending pathologic fracture. Her new CT scan shows moderate postoperative hematoma in the gluteal region, not unexpected with her medical history as well as some of the cirrhosis noted on the CT scan as well. Her H&H is still slightly lower but she is still medically stable. I have discussed this with Dr. Malin and he is going to hold off on transfusion unless this drops further. Continue to mobilize with physical therapy. Quality VTE Deep Vein Thrombosis/Pulmonary Embolism Present on Admission: No
--- NOTE | 2020-11-22 09:55 | PT.IPTN ---
Current Diagnoses Secondary malignant neoplasm of bone (11/19/20) Surgery Performed Operation Date: 11/18/20 14:00 Actual Procedures p Left Long Cephalomedulary IM Femoral nail(Left) - Baltazar Saldaña MD Physical Therapy Treatment Note M2 PT-IP Current Condition Start: 11/19/20 11:47 Freq: NEEDED Status: Active Protocol: Document 11/19/20 10:27 AB (Rec: 11/19/20 12:48 AB [id number]) Physical Therapy Current Condition Current Condition Evaluation Date 11/19/20 Treatment Diagnosis s/p L hip nailing; difficulty in walking Onset Date 11/18/19 Weight Bearing Status Weight Bearing Status Weight Bear as Tolerated Allowed Weight Bearing Amount (enter % LLE WBAT or #) (%) M3 PT-IP Subjective Start: 11/19/20 11:47 Freq: NEEDED Status: Active Protocol: Document 11/22/20 09:34 CLB (Rec: 11/22/20 10:58 CLB [email or web address]) Subjective Physical Therapy Visit Type Type Treatment Note Visit Start Time 09:34 Visit Stop Time 09:55 Total Visit Minutes 21 Number of WOOD SCRAP HANDLER Visits 4 Physical Therapy Visit Comments Patient Comments Pt agreeable to work with therapy. Patient Goals To return to her home with to assist her. Therapy Pain Assessment Pain When Pain Assessed During Mobility Pain Present Pain Present Pain Reported Location left hip Intensity 5 Scale Used Numeric (0 - 10) Pain Management Techniques Modification of Treatment,Re- positioning,Timing of Activity with Medications M4 PT-IP Mobility and Gait Start: 11/19/20 11:47 Freq: NEEDED Status: Active Protocol: Document 11/22/20 09:34 CLB (Rec: 11/22/20 10:58 CLB [email or web address]) PT-Bed Mobility Assessment Supine to Sit Supine to Sit Minimal Assistance,Head of Bed Elevated,Bedrails Scooting Scooting to Edge of Bed Standby Assistance PT-Transfer Assessment Sit to and From Stand Sit to and from Stand Contact Guard Assistance,1 Person Assistance,Use of Upper Extremities Equipment Transfer Assistive Device Gait Belt,Front Wheeled Walker Orthotic/Prosthetic Devices or Brace: No Transfers Transfer Destination Chair Transfer Technique Pt ambulated using fWW Transfer Ability Level of Assist Contact Guard Assistance,1 Person Assistance,Use of Upper Extremities Comments Mobility Comments Pt performed HS AAROM. Pt Min A to sitting on EOB with SBA for scooting. Pt required cues for hand placement then stood CGA. Pt ambulated in room ~ 25ft with mild dizziness that improved during gait. Pt sat in chair CGA with cues to put leg out before sitting and hand placement for safety. Pt left in room with breakfast tray, call light. RN informed of pt mobility. Gait Assessment Gait Gait Assistance Required: Contact Guard Assist,1 Person Assist Distance (Feet) 25 Able to Maintain Weight Bearing Status Yes During Gait Assistive Devices Assistive Device Gait Belt,Front Wheeled Walker Orthotic/Prosthetic Devices or Brace: No Gait Deviations General Gait Pattern Antalgic,Decreased Stride Length,Decreased Feet Clearance,Flexed Trunk Factors Limiting Gait Function Factors Limiting Gait Function Decreased Activity Tolerance, Decreased Strength,Limited Range of Motion,Pain,Poor Balance,Poor Safety Awareness Comments Gait Comments Pt ambulated ~25ft with small step through gait pattern. Stair Climbing Assessment Comments Stair Climbing Comments Pt will not have stairs at home to reassess, does have a step to get into truck upon DC , previously step forward and pivot around holding handles, can assess next tx at beside assimulation w/ bed rail and to assist. M5 PT-IP Objective Assessments Start: 11/19/20 11:47 Freq: NEEDED Status: Active Protocol: Document 11/19/20 10:27 AB (Rec: 11/19/20 12:48 AB [email or web address]) Orientation Orientation/Cognition Level of Alertness Alert Orientation Name,Age,Birthday,Month,Date, Year,Day of Week,Place, Situation Language Function Ability No Deficits Noted Safety Awareness Understands Safety Issues Memory Description No Deficits Noted Gross Range of Motion Lower Extremity ROM Assessment Within Functional Limits Impairments increarse LLE muscle guarding due to pain Strength Lower Extremity Strength Assessment Left Impaired Hip 3-/5 Knee 3-/5 Sensation Assessment Sensation Light Touch Impaired Proprioception (Position) Impaired Comments Sensation Comments 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 M6 PT-IP Treatment Start: 11/19/20 11:47 Freq: NEEDED Status: Active Protocol: Document 11/22/20 09:34 CLB (Rec: 11/22/20 10:58 CLB [email or web address]) Physical Therapy Treatment Education Education Provided Precautions,Weight Bearing Status,Safety M7 PT-IP Assessment and Plan Start: 11/19/20 11:47 Freq: NEEDED Status: Active Protocol: Document 11/22/20 09:34 CLB (Rec: 11/22/20 10:58 CLB [email or web address]) PT Summary Assessment and Plan Potential Rehabilitation Potential Fair Status of Condition at Evaluation Evolving Summary Impairments Pain,ROM,Strength,Balance, Coordination,Sensation,Tone, Cognition,Bed Mobility, Transfers,Gait,Activity Tolerance Progress Towards Goals Progressing Toward Goals,Slow Progress due to Pain,Slow Progress due to Medical Issues ,Slow Progress due to Activity Tolerance Assessment Summary Pt continues to require CGA- Min A for all mobility with mild dizziness during gait. d/ c plan is home with spouse assist her. acquired w/c and fWW for use at home. Pt would benefit continued acute PT for strength and endurance in standing and 1 step mgt to get into truck w/ handle support. Will continue to assess progress. Goals Bed Mobility Goal Standby Assistance Transfer Goal Standby Assistance Gait Goal Contact Guard Assistance Gait Distance 75 Other Goals improve ambulation using FWW 75 ft CGA up/down 2 steps 2 rails min A Days to Meet Goals 10 Frequency of Treatment Frequency Of Treatment Twice a Day Treatment Plan Physical Therapy Treatment Plan Bed Mobility Training,Transfer Training,Gait Training, Therapeutic Exercise,Balance Retraining,Post Op Education, Discharge Planning,Hot or Cold Pack,Neuromuscular Re-ed, Coordination Retraining,Manual Therapy Other Recommendations and Next Treatment LE ther ex, bed mobility, Focus transfers, gait distance w/ FWW, 1 step mgt for getting into truck (elevated bed w/ bed rail and walking stick or MEDICAL INVESTIGATOR). Recommendations To Nursing Amount of Assist Needed 1 Person Assist Discharge Recommendations PT Discharge Recommendations Home with 05/06 Assist,Home Health Transportation Needs at Discharge Private Vehicle,Wheelchair/ Cabulance
[2020-11-22] MEDS: INSULIN ASPART 100 UNIT/ML INSULN PEN SUBCUT ×7 (10:10→20:50)
[2020-11-22] MEDS: ACETAMINOPHEN 325 MG TABLET 975 MG PO ×3 (10:11→20:48)
[2020-11-22] MEDS: polyethylene glycoL 3350 17 GM POWD.PACK PO (10:11)
[2020-11-22] MEDS: MAGNESIUM OXIDE 400 MG TABLET PO ×2 (10:11→20:49)
[2020-11-22] MEDS: DOCUSATE 100 MG CAPSULE PO ×2 (10:11→20:49)
[2020-11-22] MEDS: lisinopriL 20 MG TABLET PO ×2 (10:12→20:48)
--- NOTE | 2020-11-22 11:45 | OT.IP.TRT ---
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 Diagnosis Onset Date 11/18/20 Weight Bearing Status Weight Bearing Status Weight Bear as Tolerated M3 OT- IP Subjective and Pain Start: 11/20/20 12:26 Freq: Status: Active Protocol: Document 11/22/20 12:18 CGR (Rec: 11/22/20 12:36 CGR [id number]) OT- Subjective Occupational Therapy Visit Type Type Progress Note Visit Start Time 11:06 Visit Stop Time 11:45 Total Visit Minutes 39 Notes Pt's present throughout session. OT Pain Assessment Pain When Pain Assessed At Rest Pain Present Pain Present Pain Reported Location left hip Scale Used did not rate Management Techniques Distraction,Modification of Treatment,Re-positioning M4 OT- IP ADL's Start: 11/20/20 12:26 Freq: Status: Active Protocol: Document 11/22/20 12:18 CGR (Rec: 11/22/20 12:36 CGR [id number]) OT [id number] Comments OT Self-Feeding Comments Not meal time OT ADL-Grooming General Evaluation Grooming Ability Standby Assistance Areas Needing Assistance Face Washing Comments OT Grooming Comments In shower OT ADL-Oral Care Comments Oral Care Comments Not performed OT ADL-Dressing General Eval Upper Body Dressing Ability Standby Assistance Lower Body Dressing Ability Total Assistance Areas Needing Assistance Underpants/Brief,Socks Comments OT Dressing Comments hospital gown, socks and brief . OT ADL-Toileting Comments OT Toileting Comments not performed OT ADL-Bathing Bathing Type Bathing Type Shower General Evaluation Bathing Ability Moderate Assistance Areas Needing Assistance Retrieving/Setting Up Items, Wash/Dry Upper Body,Wash/Dry Back,Wash/Dry Perineal Area, Wash/Dry Lower Extremities Devices Bathing Equipment Hand Held Shower Sprayer, Shower Chair with Arms,Grab Bars Comments OT Bathing Comments Pt performed with assist of . M5 OT- IP IADL's Start: 11/20/20 12:26 Freq: Status: Active Protocol: Document 11/20/20 12:26 CGR (Rec: 11/20/20 13:10 CGR [id number]) OT-Instrumental Activities of Daily Living Deficits IADL Deficits Identified Deficits Home Safety Awareness Awareness of Need for Assistance at Home Decreased Awareness Ability to Problem Solve Emergency Unable to Problem Solve Situations Home Safety Comments Pt demonstrates poor safety awareness and problem solving M6 OT- IP Functional Cognition Start: 11/20/20 12:26 Freq: Status: Active Protocol: Document 11/21/20 16:39 CGR (Rec: 11/21/20 16:57 CGR [id number]) Cognitive Factors Limiting Selfcare Function Cognitive Ability Level of Alertness Alert Patient Orientation Name,Month,Year,Day of Week, Place,Situation Cognitive Tests MOCA Pt was agreeable to MOCA. Pt scored a 17/30. A score of 17 is consistent with moderate cognitive disfunction. A score of 26 or above would be considered normal. Pt had difficulty with visuospatial and executive functioning, memeory, attention, language and delayed recall. She scored full points for naming, abstraction, and missed 1 of 6 orientation questions. Cognitive Comments Cognitive Assessment Comments Pt demonstrates moderate cognitive disfunction per MOCA results. Pt states that she has had difficulty with aspects of cognition since her CVA. OT- Vision and Hearing OT- Vision Assessment Vision Assessment Comments Pt states that her strabismus is typical and that she has had it since she was a child. M7 OT- IP Mobility and Balance Start: 11/20/20 12:26 Freq: Status: Active Protocol: Document 11/22/20 12:18 CGR (Rec: 11/22/20 12:36 CGR [id number]) OT-Transfer Assessment Sit to and From Stand Sit to and from Stand Standby Assistance,Contact Guard Assistance Transfers Transfer Ability Standby Assistance,Contact Guard Assistance Technique Transfer Destination Bedside Commode,Chair,Shower Stall Transfer Technique Stand Step Pivot Devices Transfer Assistive Devices Gait Belt,Front Wheeled Walker Comments Mobility Comments Mobility around the room OT- Balance Assessment Sitting Balance and Reactions Static Sitting Balance Ability Good Dynamic Sitting Balance Ability Fair M8 OT- IP Objective Assessments Start: 11/20/20 12:26 Freq: Status: Active Protocol: Document 11/20/20 12:26 CGR (Rec: 11/20/20 13:10 CGR [id number]) OT Gross Range of Motion Upper Extremity Range of Motion Assessment Within Functional Limits OT Strength Upper Extremity Strength Assessment Within Functional Limits OT- Coordination Assessment Upper Extremity Finger to Nose Test Within Functional Limits Finger Tapping Test Within Functional Limits OT-Muscle Tone Assessment Muscle Tone WNL Yes OT Sensation Assessment Edema Edema Absent M9 OT- IP Assessment and Plan Start: 11/20/20 12:26 Freq: Status: Active Protocol: Document 11/22/20 12:18 CGR (Rec: 11/22/20 12:36 CGR [id number]) OT Summary Assessment and Plan Potential Rehabilitation Potential Good Analytic Complexity at Evaluation Moderate Summary OT Impairments Pain,Balance,Functional Cognition,Functional Mobility, Dressing,Toileting,Bathing, Toilet Transfers,Shower Transfers,Activity Tolerance Progress Towards Goals Slow Progress due to Pain,Slow Progress due to Cognition Assessment Summary Pt presents as a moderate complexity evaluation s/p admit for metastatic lesion with pathological fx s/p 11/18 IM nailing. Pt is mobilizing with SBA to CGA. Pt performed shower today with mod a for bathing and drying assist. Total assist for LB dressing but again declines LB dressing training with DME stating that they have the equipment and know how to use it. Pt will benefit from continued therapy services while hospitalized. Pt's states that they now have all equipment needed for discharge home. Goals Self-Feeding Goal Independent Grooming Goal Independent Dressing Goal Independent Toileting Goal Independent Bathing Goal Independent Toilet Transfer Goal Independent Shower Transfer Goal Independent Days to Meet Goals 10 Frequency of Treatment Frequency Of Treatment Once a Day Treatment Plan OT Treatment Plan ADL Training,Functional Cognition Training,Functional Mobility,Patient/Family Education,Discharge Planning Other Treatment Recommendations and Next review home safety Treatment Focus Discharge Recommendations OT Discharge Recommendations Home with Assistance Home Equipment Needs 2ww, shower seat Transportation Needs at Discharge Private Vehicle
--- NOTE | 2020-11-22 14:19 | CM.DPC ---
DCP continued: EMR reviewed: CM talked with Dr. Malin during AM rounds, CT was done and found masses on the ovaries and adrenal glands as well. MD wants to talk with the family and patient today to let them know about the new masses and discuss possible Hospice vrs palliative care. MD is hesitant because patient is oncology patient but will discuss options with patient and family. Dr. Malin stated patient now has a gluteal hematoma from surgery and her H&H is still declining plan is to keep patient here at least till Monday and then DC home with family at that time. CM department to follow up in AM to assist with any new DC planning needs that may arise. [place] Jacinto RN
--- NOTE | 2020-11-22 14:25 | PT.IPTN ---
Current Diagnoses Secondary malignant neoplasm of bone (11/19/20) Surgery Performed Operation Date: 11/18/20 14:00 Actual Procedures p Left Long Cephalomedulary IM Femoral nail(Left) - Baltazar Saldaña MD Physical Therapy Treatment Note M2 PT-IP Current Condition Start: 11/19/20 11:47 Freq: NEEDED Status: Active Protocol: Document 11/19/20 10:27 AB (Rec: 11/19/20 12:48 AB [id number]) Physical Therapy Current Condition Current Condition Evaluation Date 11/19/20 Treatment Diagnosis s/p L hip nailing; difficulty in walking Onset Date 11/18/19 Weight Bearing Status Weight Bearing Status Weight Bear as Tolerated Allowed Weight Bearing Amount (enter % LLE WBAT or #) (%) M3 PT-IP Subjective Start: 11/19/20 11:47 Freq: NEEDED Status: Active Protocol: Document 11/22/20 13:49 CLB (Rec: 11/22/20 14:43 CLB [id number]) Subjective Physical Therapy Visit Type Type Treatment Note Visit Start Time 13:49 Visit Stop Time 14:25 Total Visit Minutes 36 Number of PIECE MEAT TRIMMER Visits 5 Physical Therapy Visit Comments Patient Comments Pt agreeable to work with therapy. Patient Goals To return to her home with to assist her. Therapy Pain Assessment Pain When Pain Assessed During Mobility Pain Present Pain Present Pain Reported M4 PT-IP Mobility and Gait Start: 11/19/20 11:47 Freq: NEEDED Status: Active Protocol: Document 11/22/20 13:49 CLB (Rec: 11/22/20 14:43 CLB [id number]) PT-Bed Mobility Assessment Supine to Sit Supine to Sit Minimal Assistance Sit to Supine Sit to Supine Minimal Assistance Scooting Scooting to Edge of Bed Standby Assistance PT-Transfer Assessment Sit to and From Stand Sit to and from Stand Standby Assistance,Use of Upper Extremities Equipment Transfer Assistive Device Gait Belt,Front Wheeled Walker Orthotic/Prosthetic Devices or Brace: No Transfers Transfer Destination Bed Transfer Technique Pt ambulated using fWW Transfer Ability Level of Assist Standby Assistance,Use of Upper Extremities Comments Mobility Comments Pt requires Min A of LLE during supine<>sit, she is able to scoot to EOB SBA and and SBA to stand with cues for hand placement. Pt able to ambulate ~80ft w/FWW/SBA using small step thru gait pattern. Pt will need to trial three steps before d/c with present. Gait Assessment Gait Gait Assistance Required: Standby Assistance,1 Person Assist Distance (Feet) 80 Able to Maintain Weight Bearing Status Yes During Gait Assistive Devices Assistive Device Gait Belt,Front Wheeled Walker Gait Deviations General Gait Pattern Antalgic,Decreased Stride Length,Decreased Feet Clearance Factors Limiting Gait Function Factors Limiting Gait Function Decreased Activity Tolerance, Decreased Strength,Limited Range of Motion,Pain,Poor Balance,Poor Safety Awareness Comments Gait Comments See mobility comments Stair Climbing Assessment Comments Stair Climbing Comments Pt decided to return to [facility] at d/c and will require going up three steps with one rail. M5 PT-IP Objective Assessments Start: 11/19/20 11:47 Freq: NEEDED Status: Active Protocol: Document 11/19/20 10:27 AB (Rec: 11/19/20 12:48 AB [id number]) Orientation Orientation/Cognition Level of Alertness Alert Orientation Name,Age,Birthday,Month,Date, Year,Day of Week,Place, Situation Language Function Ability No Deficits Noted Safety Awareness Understands Safety Issues Memory Description No Deficits Noted Gross Range of Motion Lower Extremity ROM Assessment Within Functional Limits Impairments increarse LLE muscle guarding due to pain Strength Lower Extremity Strength Assessment Left Impaired Hip 3-/5 Knee 3-/5 Sensation Assessment Sensation Light Touch Impaired Proprioception (Position) Impaired Comments Sensation Comments 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 M6 PT-IP Treatment Start: 11/19/20 11:47 Freq: NEEDED Status: Active Protocol: Document 11/22/20 13:49 CLB (Rec: 11/22/20 14:43 CLB [id number]) Physical Therapy Treatment Exercises Exercises Quad Sets,Heel Slides M7 PT-IP Assessment and Plan Start: 11/19/20 11:47 Freq: NEEDED Status: Active Protocol: Document 11/22/20 13:49 CLB (Rec: 11/22/20 14:43 CLB [id number]) PT Summary Assessment and Plan Potential Rehabilitation Potential Fair Status of Condition at Evaluation Evolving Summary Impairments Pain,ROM,Strength,Balance, Coordination,Sensation,Tone, Cognition,Bed Mobility, Transfers,Gait,Activity Tolerance Progress Towards Goals Progressing Toward Goals Assessment Summary Pt improving with all mobility requiring Min A of LLE in and out of bed, SBA for scooting to EOB and standing. Pt ambulated SBA ~80ft. Pt will d /c home with husbands assist. Goals Bed Mobility Goal Standby Assistance Transfer Goal Standby Assistance Gait Goal Contact Guard Assistance Gait Distance 75 Other Goals improve ambulation using FWW 75 ft CGA up/down 2 steps 2 rails min A Days to Meet Goals 10 Frequency of Treatment Frequency Of Treatment Twice a Day Treatment Plan Physical Therapy Treatment Plan Bed Mobility Training,Transfer Training,Gait Training, Therapeutic Exercise,Balance Retraining,Post Op Education, Discharge Planning,Hot or Cold Pack,Neuromuscular Re-ed, Coordination Retraining,Manual Therapy Other Recommendations and Next Treatment LE ther ex, bed mobility, Focus transfers, gait distance w/ FWW, stair training with . Recommendations To Nursing Amount of Assist Needed 1 Person Assist Discharge Recommendations PT Discharge Recommendations Home with 05/06 Assist,Home Health Transportation Needs at Discharge Private Vehicle
--- NOTE | 2020-11-22 15:29 | PM.PN.1 ---
Subjective Subjective Date Patient Seen: 11/22/20 Time Patient Seen: 15:29 Interval history: This is a 60-year-old female patient with a known history of hep C cirrhosis, breast cancer having received chemo therapy hormone therapy and radiation therapy who presents to the orthopedist's office for right hip pain increasing over 3 weeks developing severe groin pain that is worsened with ambulation who was admitted after a metastasis was found in her left femur, she underwent operative pinning for stabilization with Dr. Saldaña, orthopedic surgery. Her morning glucose was much better controlled today at 169. Her iron panel returned back with an iron deficiency anemia. CT imaging for metastatic evaluation revealed a normal head CT, but CT of her abdomen and pelvis revealed multiple things. A hematoma near left gluteus muscle, a right adnexal mass which was not previously known. It was unknown to this provider her history of cirrhosis and given her cognitive impairment and lack of records, however when mentioning this was seen on her CT scan she has had that this is chronic and secondary to hep C. Further evaluation with her oncologist, and pelvic ultrasound for further evaluation of her adnexal masses recommended. Exam Vital Signs (past 8 hours): - 11/22/20 08:00 11/22/20 10:12 11/22/20 12:37 Temperature 97.4 F L 98.2 F Pulse Rate 93 H 96 H 93 H Respiratory Rate 14 16 Blood Pressure 146/88 H 153/86 H 147/88 H Pulse Oximetry 93 98 Oxygen Delivery Method Room Air Oxygen Flow Rate 0 Narrative Exam Narrative: GENERAL APPEARANCE: well developed, obese female. No acute dystress. HEENT: Normocephalic, PERRLA, conjunctiva clear, sclera is anicteric, eye asymmetry, dysconjugate gaze with right eye esotropia, mucous membranes are moist and pink. NECK/THYROID: neck supple, no JVD, no thyromegaly, trachea midline. LYMPH NODES: no cervical or supraclavicular lymphadenopathy. SKIN: [place], warm and dry, no visible lesions, rashes, ulcerations or petechiae. HEART: regular rate and rhythm, S1-S2, no murmur, no rubs or gallops, brisk capillary refill, no edema LUNGS: clear to auscultation bilaterally, no coarseness crackles or wheezing, no cough present CHEST: Symmetrical movement, no accessory muscle use, good tidal volume. ABDOMEN: Soft, no distention, no abdominal tenderness, no guarding or peritoneal signs, no organomegaly, no flank or suprapubic tenderness, active bowel tones. BACK: Normal curvature, nontender to palpation, no CVA tenderness on percussion EXTREMITIES: Surgical dressing left hip and lateral distal femur clean dry and intact, distal CMS intact, no deformities or joint effusions. There is extensive ecchymosis on her left gluteal region extending down her thigh, compartments soft, no tenderness, distal pulses are intact. NEUROLOGIC: AAO to person place and situation, no focal neurologic deficits, sensation intact to light touch, hearing grossly normal to speech. Mild cognitive impairment. PSYCH: cooperative with stable behavior. Objective Imaging CT scan - abdomen: Radiologist's impression: IMPRESSION: 1. Lesion in the left gluteus medius with high-density material which could be due to calcifications or hemorrhage. There is subcutaneous gas and small hematoma and intramuscular gas. This may be due to recent biopsy or abscess. 2. Cirrhosis, splenomegaly, mild ascites. 3. Nonspecific shotty mesenteric and retroperitoneal lymph nodes. 4. Right adnexal mass measuring at 3.6 cm. -Recommend initial evaluation with pelvic ultrasound. Labs Result Diagrams: 11/22/20 04:24 11/22/20 04:24 Labs: Laboratory Results - last 24 hr 11/21/20 11/22/20 11/22/20 03:45 04:24 04:24 WBC 3.0 L RBC 2.53 L Hgb 7.9 L Hct 22.9 L MCV 90.5 MCH 31.2 MCHC 34.4 RDW 14.4 Plt Count 54 L Neut % (Auto) 61.3 Lymph % (Auto) 27.2 [place] % (Auto) 8.6 Eos % (Auto) 2.4 Baso % (Auto) 0.5 Neut # (Auto) 1800 Lymph # (Auto) 800 L [place] # (Auto) 300 Eos # (Auto) 100 Baso # (Auto) 0 Sodium Potassium Chloride Carbon Dioxide BUN Creatinine Estimated GFR BUN/Creatinine Ratio Glucose Calcium Iron 23 L TIBC 272 % Saturation 8 L Transferrin 188 L PTH Intact 438 H Calcium (PTH Intact) 10.2 PTH Intact Intraop Comment 11/22/20 04:24 WBC RBC Hgb Hct MCV MCH MCHC RDW Plt Count Neut % (Auto) Lymph % (Auto) [place] % (Auto) Eos % (Auto) Baso % (Auto) Neut # (Auto) Lymph # (Auto) [place] # (Auto) Eos # (Auto) Baso # (Auto) Sodium 139 Potassium 4.0 Chloride 110 H Carbon Dioxide 29 BUN 19 H Creatinine 0.74 Estimated GFR > 60.0 BUN/Creatinine Ratio 25.7 H Glucose 169 H Calcium 9.9 Iron TIBC % Saturation Transferrin PTH Intact Calcium (PTH Intact) PTH Intact Intraop PFSH Medical History Breast cancer Imbalance of muscle of eye Multiple lesions of metastatic malignancy Surgical History History of eye surgery History of lumpectomy History of total abdominal hysterectomy History of vascular access device Status post surgery (03/15/13) Family History Father No significant medical problems Mother Stroke Diabetes mellitus Daughter Diabetes mellitus Social History household members: spouse and children Smoking Status: Never smoker alcohol intake: current Assessment & Plan Assessment & Plan narrative: This is a 60-year-old female patient with a known history of hep C cirrhosis, breast cancer having received chemo therapy hormone therapy and radiation therapy who presents to the orthopedist's office for right hip pain increasing over 3 weeks developing severe groin pain that is worsened with ambulation who was admitted after a metastasis was found in her left femur, she underwent operative pinning for stabilization with Dr. Saldaña, orthopedic surgery. 1. Metastatic left intertrochanteric femur lesion, acute, present on admission, active. -patient with progressive left hip pain over 3 week. Radiating to the groin worsening with ambulation. -plain film imaging of the hip and pelvis finds no etiology for the pain therefore MRI Was obtained which finds multiple metastatic disease in the pelvis and bilateral hips largest lesion in the left intertrochanteric femur and femoral neck. -orthopedics directed the patient to the ER due to the lytic lesion in risk of impending pathologic fracture with plans to take the patient to the OR for intramedullary nailing. -Dr. Saldaña has taken the patient to the OR and is status post cephalomedullary nail on the left femur. -postoperative orthopedic care per the orthopedic team. -complicated by gluteal hematoma. H/h continue to fall, will continue to monitor as compartments are soft. 2. Metastatic breast cancer, chronic -patient states he was diagnosed with breast cancer approximately 3 and half years ago and has undergone chemo hormone and radiation therapies with last treatment being 2 months ago. -patient receives her cancer care at [facility]. -recommend outpatient follow up with her oncologist after discharge. CT did reveal further R adnexal mass. -given dose of zometa x1 as noted below. 3. Type 2 diabetes, new diagnosis, active. -patient without history of diabetes and no medical therapy for hyperglycemia. Blood sugar on admission labs is 259. -obtained a hemoglobin A1c which is found to be 8.8 consistent with an approximate average blood sugar of 200. -ordered fingerstick blood sugars a.c. and hs with correctional insulin high-dose scale. Now up to 14 U lantus, 4 U TID AC short acting, continue to adjust as necessary. -small consistent carbohydrate to enhance glycemic control and reduce risk for infection. -will likely discharge on oral therapy and insulin given poor control here. 4. Mild hypercalcemia, acute versus chronic, present on admission, improved. -hypercalcemia likely multifactorial, chronic related malignancy, lytic bone lesions as well as exacerbated by hyperglycemia and relative dehydration evidence by elevated BUN and BUN creatinine ratio as well as her thiazide. -HCTZ discontinued. patient was continued on normal saline initially then discontinued with adequate hydration and seemingly no effect on her levels. Calcium improved to 9.9 today. -The patient has no current symptoms. -given Zometa 4 mg 11/20. Vit D slightly low. PTH slightly high consistent with primary hyperparathyroidism. -recommend outpatient follow up with endocrinology. 5. Abnormal EKG, acute versus chronic, present on admission, active. -patient denies complaints of chest pain or palpitations, has risk factors including hypertension, diabetes not previously diagnosed and obesity. -preoperative 12 lead EKG reveals sinus rhythm at rate of 80 with a right bundle branch block left axis shift with notation of inverted T-waves in lead 3 and AVF. -repeated 12 lead EKG postoperatively an EKG is unchanged. -troponin was negative. 6. Acute blood loss anemia secondary to gluteal hematoma - secondary to surgery, CT noted hematoma and now evident on exam today although started showing evidence yesterday afternoon. Hg has dropped to 7.9. Will continue to monitor. - will start oral iron 7. Hep C cirrhosis, chronic - no additional management recommended at this time. Likely contributed along with her thrombocytopenia to gluteal hematoma. - likely etiology of her chronic thrombocytopenia which remains stable today. 8. Right adnexal mass - outpatient follow up with poultry picking machine tender recommended, Pelvic ultrasound prior to consultation can be done on an outpatient setting. VTE prophylaxis: Contraindicated due to thrombocytopenia. Diet: Small consistent carbohydrate Code status: DNR, the patient designates her to be surrogate decision maker. Dispo: Home with assistance and home health, anticipate discharge likely tomorrow if h/h stabilizes. Recommend outpatient follow up with her oncologist, SOFTWARE APPLICATIONS DESIGNER and endocrinology referrals from PCP for adnexal mass and elevated calcium. Quality VTE Deep Vein Thrombosis/Pulmonary Embolism Present on Admission: No
[2020-11-22] MEDS: FERROUS SULFATE 325 MG TABLET PO (17:14)
[2020-11-22] MEDS: INSULIN GLARGINE 100 UNIT/ML 3ML PEN 14 UNIT SUBCUT (20:50)
[2020-11-23] VITALS (9 sets, daily range): BP systolic 129–158; BP diastolic 78–85; PULSE 85–98; RESP 14–19; TEMP 36.2–37.1; O2SAT 92–97
[2020-11-23] MEDS: OXYCODONE IR 10 MG TABLET PO ×2 (05:30→09:26)
[2020-11-23 05:58] LABS: Add Manual Diff / Slide Review NO; Basophils Absolute Auto 0 /uL (0-100); Basophils Percent Auto 0.4 % (0-2); Eosinophils Absolute Auto 100 /uL (0-450); Eosinophils Percent Auto 2.6 % (2-4); Hematocrit 21.5 % (36-46); Hemoglobin 7.1 g/dL (12.0-16.0); Lymphocytes Absolute Auto 700 /uL (1100-4500); Mean Corpuscular HGB Conc 33.2 % (30-36); Mean Corpuscular Hemoglobin 30.1 PG (26-34); Mean Corpuscular Volume 90.6 fL (80-100); Monocytes Absolute Auto 200 /uL (0-900); Monocytes Percent Auto 8.6 % (3-14); Neutrophils Absolute Auto 1500 /uL (1500-7000); Neutrophils Percent Auto 59.4 % (50-75); Platelet Count 56 X10^3/uL (150-400); Red Blood Cell Count 2.37 X10^6/uL (4.0-5.2); White Blood Cell Count 2.6 X10^3/uL (4.5-11.0)
[2020-11-23 07:19] LABS: BUN Creatinine Ratio 28.6 (6-22); Blood Urea Nitrogen 20 mg/dL (7-17); Calcium 9.8 mg/dL (8.4-10.2); Carbon Dioxide 27 mmol/L (22-32); Chloride 110 mmol/L (98-107); Estimated Glomerular Filt Rate > 60.0 mL/min (>60); Glucose 188 mg/dL (70-100); HEMOLYSIS < 15 (0-50); Sodium 138 mmol/L (137-145)
[2020-11-23] MEDS: ACETAMINOPHEN 325 MG TABLET 975 MG PO ×3 (08:48→22:13)
[2020-11-23] MEDS: FERROUS SULFATE 325 MG TABLET PO (08:49)
[2020-11-23] MEDS: MAGNESIUM OXIDE 400 MG TABLET PO ×2 (08:49→21:33)
[2020-11-23] MEDS: lisinopriL 20 MG TABLET PO ×2 (08:49→21:33)
[2020-11-23] MEDS: DOCUSATE 100 MG CAPSULE PO ×2 (08:49→21:33)
[2020-11-23] MEDS: polyethylene glycoL 3350 17 GM POWD.PACK PO (08:49)
[2020-11-23] MEDS: INSULIN ASPART 100 UNIT/ML INSULN PEN SUBCUT ×6 (08:53→17:02)
--- NOTE | 2020-11-23 09:05 | PT-IP ANOTE ---
Pt receiving blood x2 due to low H/H. Will check back with pt this afternoon.
--- NOTE | 2020-11-23 09:40 | OT.IP.TRT ---
Current Diagnoses Secondary malignant neoplasm of bone (11/19/20) Surgery Performed Operation Date: 11/18/20 14:00 Actual Procedures p Left Long Cephalomedulary IM Femoral nail(Left) - Baltazar Saldaña MD Occupational Therapy Treatment Note M2 OT-IP Current Condition Start: 11/20/20 12:26 Freq: Status: Active Protocol: Document 11/20/20 12:26 CGR (Rec: 11/20/20 13:10 CGR [id number]) Occupational Therapy Current Condition Current Condition Evaluation Date 11/20/20 Treatment Diagnosis Metastatic leasion with pathological fx s/p 11/18 IM nailing. Diagnosis Onset Date 11/18/20 Weight Bearing Status Weight Bearing Status Weight Bear as Tolerated M3 OT- IP Subjective and Pain Start: 11/20/20 12:26 Freq: Status: Active Protocol: Document 11/23/20 11:58 CGR (Rec: 11/23/20 11:59 CGR [id number]) OT- Subjective Occupational Therapy Visit Type Type Administrative Note Notes Checked on patient this morning. Pt is receiving 2 units of blood this AM. Assisted with repositioning in bed on her right side. Will check back as schedule permits .
--- NOTE | 2020-11-23 10:14 | PC.NURSE ---
Addendum entered by Raisa Vázquez R.N. 11/23/20 13:34: PATIENT TOLERATED BLOOD TRANSFUSION AND IRON TRANSFUSION. UP TO RECLINER FOR LUNCH, DRSGS CHANGED PER ORTHO PA ORDER. DESMOND INTACT, NO ACTIVE WEEPING. APPLIED NEW SMALL SIZE AQUACEL [id number]. Original Note: CLARIFIED BLOOD PRODUCT ORDERS WITH DR. FOSTER. HE STATES HE ONLY WANTS THE PATIENT TO RECEIVE A TOTAL OF 1 UNIT OF PRBC'S. CALLED BLOOD BANK TO UPDATE ON CLARIFIED ORDER. THEY WILL EDIT THE ORDERS FOR TOTAL OF 1 UNIT WHICH IS CURRENTLY INFUSING.
[2020-11-23] MEDS: IRON SUCROSE 200 MG in SODIUM CHLORIDE 0.9% 100 ML 220 ML IV (10:28)
[2020-11-23] MEDS: SODIUM CHLORIDE 0.9% FLUSH 10 ML IV (12:01)
--- NOTE | 2020-11-23 12:41 | PM.PNPO.1 ---
Subjective Subjective Date Patient Seen: 11/23/20 Time Patient Seen: 12:41 Interval history: POD #5 s/p left long cephalomedullary nail for a metastatic lesion to the left intertrochanteric femur region with Meril's score of [address] Saldaña. She had a transfusion this AM. She is doing well this morning. Exam Vital Signs (past 8 hours): - 11/23/20 05:00 11/23/20 08:11 11/23/20 08:35 Temperature 98.5 F 98.8 F 98.8 F Pulse Rate 93 H 87 87 Respiratory Rate 16 14 14 Blood Pressure 142/78 H 138/78 138/78 Pulse Oximetry 95 93 11/23/20 08:52 11/23/20 12:00 Temperature 98.2 F 98.2 F Pulse Rate 88 85 Respiratory Rate 16 16 Blood Pressure 144/79 H 129/80 Pulse Oximetry 95 Oxygen Delivery Method Room Air Oxygen Flow Rate 0 Narrative Exam Narrative: Patient sitting in bedside chair in NAD. She is alert and oriented X3. Calves are soft, compressible, and nontender bilaterally. SILT throughout BLEs. Ecchymosis is moderate throughout left hip. Both aquacel dressings are saturated. Objective Labs Result Diagrams: 11/23/20 05:30 11/23/20 05:30 Labs: Laboratory Results - last 24 hr 11/23/20 11/23/20 11/23/20 05:30 05:30 06:17 WBC 2.6 L RBC 2.37 L Hgb 7.1 L Hct 21.5 L MCV 90.6 MCH 30.1 MCHC 33.2 RDW 14.0 Plt Count 56 L Neut % (Auto) 59.4 Lymph % (Auto) 29.0 [place] % (Auto) 8.6 Eos % (Auto) 2.6 Baso % (Auto) 0.4 Neut # (Auto) 1500 Lymph # (Auto) 700 L [place] # (Auto) 200 Eos # (Auto) 100 Baso # (Auto) 0 Sodium 138 Potassium 4.0 Chloride 110 H Carbon Dioxide 27 BUN 20 H Creatinine 0.70 Estimated GFR > 60.0 BUN/Creatinine Ratio 28.6 H Glucose 188 H Calcium 9.8 Blood Type O Positive Antibody Screen Negative Crossmatch See Detail [facility] Medical History Breast cancer Imbalance of muscle of eye Multiple lesions of metastatic malignancy Surgical History History of eye surgery History of lumpectomy History of total abdominal hysterectomy History of vascular access device Status post surgery (03/15/13) Family History Father No significant medical problems Mother Stroke Diabetes mellitus Daughter Diabetes mellitus Social History household members: spouse and children Smoking Status: Never smoker alcohol intake: current Assessment & Plan Post-op Postoperative Procedures: Procedures Operation Date: 11/18/20 14:00 Actual Procedures Side Surgeon p Left Long Cephalomedulary IM Femoral nail Left Baltazar Saldaña MD Patient will continue to mobilize with PT. Continue current pain control. Change both aquacel dressings. Hospitalist managing multiple comorbidities. Quality VTE Deep Vein Thrombosis/Pulmonary Embolism Present on Admission: No
--- NOTE | 2020-11-23 14:06 | PT.IPTN ---
Current Diagnoses Secondary malignant neoplasm of bone (11/19/20) Surgery Performed Operation Date: 11/18/20 14:00 Actual Procedures p Left Long Cephalomedulary IM Femoral nail(Left) - Baltazar Saldaña MD Physical Therapy Treatment Note M2 PT-IP Current Condition Start: 11/19/20 11:47 Freq: NEEDED Status: Active Protocol: Document 11/19/20 10:27 AB (Rec: 11/19/20 12:48 AB [id number]) Physical Therapy Current Condition Current Condition Evaluation Date 11/19/20 Treatment Diagnosis s/p L hip nailing; difficulty in walking Onset Date 11/18/19 Weight Bearing Status Weight Bearing Status Weight Bear as Tolerated Allowed Weight Bearing Amount (enter % LLE WBAT or #) (%) M3 PT-IP Subjective Start: 11/19/20 11:47 Freq: NEEDED Status: Active Protocol: Document 11/23/20 13:43 CLB (Rec: 11/23/20 16:36 CLB [id number]) Subjective Physical Therapy Visit Type Type Treatment Note Visit Start Time 13:43 Visit Stop Time 14:06 Total Visit Minutes 23 Number of ECONOMICS PROFESSOR Visits 6 Physical Therapy Visit Comments Patient Comments Pt agreeable to work with therapy. Patient Goals To return to her home with to assist her. Therapy Pain Assessment Pain When Pain Assessed During Mobility Pain Present Pain Present Pain Reported Location left hip Intensity 3 Scale Used Numeric (0 - 10) M4 PT-IP Mobility and Gait Start: 11/19/20 11:47 Freq: NEEDED Status: Active Protocol: Document 11/23/20 13:43 CLB (Rec: 11/23/20 16:36 CLB [id number]) PT-Transfer Assessment Sit to and From Stand Sit to and from Stand Standby Assistance,Use of Upper Extremities Equipment Transfer Assistive Device Gait Belt,Small Based Quad Cane,Large Based Quad Cane, Front Wheeled Walker Orthotic/Prosthetic Devices or Brace: No Transfers Transfer Destination Chair,Toilet Transfer Technique Stand Step Pivot Transfer Ability Level of Assist Standby Assistance,Use of Upper Extremities Comments Mobility Comments Pt up with RN in BR on arrival . Pt stood from toilet SBA with use of wall rail. Pt ambulated bedside w/FWW/SBA then sat on EOB SBA. Pt unable to use FWW in trailer and this ECONOMICS PROFESSOR provided large and small quad cane for transfers. Pt stood using large quad cane then using stand step pivot to chair requiring SBA. Pt then stood from chair using small quad cane and ambulated ~4ft SBA. Pt ambulated in [place] ~125ft w/ FWW/SBA using small step thru gait pattern and slow pace. Pt returned to room sitting in chair SBA. Pt left in chair OT arrival for shower. Gait Assessment Gait Gait Assistance Required: Standby Assistance,1 Person Assist Distance (Feet) 125 Able to Maintain Weight Bearing Status Yes During Gait Assistive Devices Assistive Device Gait Belt,Front Wheeled Walker Gait Deviations General Gait Pattern Antalgic,Decreased Stride Length,Decreased Feet Clearance Factors Limiting Gait Function Factors Limiting Gait Function Decreased Activity Tolerance, Decreased Strength,Limited Range of Motion,Pain,Poor Balance Comments Gait Comments See mobility comments Stair Climbing Assessment Comments Stair Climbing Comments Pt decided to return to trailer at d/c and will require going up three steps with one rail. M5 PT-IP Objective Assessments Start: 11/19/20 11:47 Freq: NEEDED Status: Active Protocol: Document 11/19/20 10:27 AB (Rec: 11/19/20 12:48 AB [id number]) Orientation Orientation/Cognition Level of Alertness Alert Orientation Name,Age,Birthday,Month,Date, Year,Day of Week,Place, Situation Language Function Ability No Deficits Noted Safety Awareness Understands Safety Issues Memory Description No Deficits Noted Gross Range of Motion Lower Extremity ROM Assessment Within Functional Limits Impairments increarse LLE muscle guarding due to pain Strength Lower Extremity Strength Assessment Left Impaired Hip 3-/5 Knee 3-/5 Sensation Assessment Sensation Light Touch Impaired Proprioception (Position) Impaired Comments Sensation Comments 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 M6 PT-IP Treatment Start: 11/19/20 11:47 Freq: NEEDED Status: Active Protocol: Document 11/22/20 13:49 CLB (Rec: 11/22/20 14:43 CLB [id number]) Physical Therapy Treatment Exercises Exercises Quad Sets,Heel Slides M7 PT-IP Assessment and Plan Start: 11/19/20 11:47 Freq: NEEDED Status: Active Protocol: Document 11/23/20 13:43 CLB (Rec: 11/23/20 16:36 CLB [id number]) PT Summary Assessment and Plan Potential Rehabilitation Potential Fair Status of Condition at Evaluation Evolving Summary Impairments Pain,ROM,Strength,Balance, Coordination,Sensation,Tone, Cognition,Bed Mobility, Transfers,Gait,Activity Tolerance Progress Towards Goals Progressing Toward Goals Assessment Summary Pt continues to improve with mobility, pt able to increase gait distance to ~125ft w/FWW/ SBA. Pt able to to use quad cane for transfers w/o increase in pain. Goals Bed Mobility Goal Standby Assistance Transfer Goal Standby Assistance Gait Goal Contact Guard Assistance Gait Distance 75 Other Goals improve ambulation using FWW 75 ft CGA up/down 2 steps 2 rails min A Days to Meet Goals 10 Frequency of Treatment Frequency Of Treatment Twice a Day Treatment Plan Physical Therapy Treatment Plan Bed Mobility Training,Transfer Training,Gait Training, Therapeutic Exercise,Balance Retraining,Post Op Education, Discharge Planning,Hot or Cold Pack,Neuromuscular Re-ed, Coordination Retraining,Manual Therapy Other Recommendations and Next Treatment three stairs with cane and Focus left rail ascending, gait, bed mobility Recommendations To Nursing Amount of Assist Needed 1 Person Assist Discharge Recommendations PT Discharge Recommendations Home with 05/06 Assist,Home Health Transportation Needs at Discharge Private Vehicle
--- NOTE | 2020-11-23 14:34 | OT.IP.TRT ---
Current Diagnoses Secondary malignant neoplasm of bone (11/19/20) Surgery Performed Operation Date: 11/18/20 14:00 Actual Procedures p Left Long Cephalomedulary IM Femoral nail(Left) - Baltazar Saldaña MD Occupational Therapy Treatment Note M2 OT-IP Current Condition Start: 11/20/20 12:26 Freq: Status: Active Protocol: Document 11/20/20 12:26 CGR (Rec: 11/20/20 13:10 CGR [id number]) Occupational Therapy Current Condition Current Condition Evaluation Date 11/20/20 Treatment Diagnosis Metastatic leasion with pathological fx s/p 11/18 IM nailing. Diagnosis Onset Date 11/18/20 Weight Bearing Status Weight Bearing Status Weight Bear as Tolerated M3 OT- IP Subjective and Pain Start: 11/20/20 12:26 Freq: Status: Active Protocol: Document 11/23/20 15:49 CCC (Rec: 11/23/20 16:01 CCC [id number]) OT- Subjective Occupational Therapy Visit Type Type Treatment Note Visit Start Time 14:05 Visit Stop Time 13:34 Total Visit Minutes 29 Occupational Therapy Visit Comments Patient Comments Pt wanting to shower. Patient/Caregiver Goals To go home. OT Pain Assessment Pain When Pain Assessed During Mobility Pain Present Pain Present Pain Reported M4 OT- IP ADL's Start: 11/20/20 12:26 Freq: Status: Active Protocol: Document 11/23/20 15:49 CCC (Rec: 11/23/20 16:01 CCC [id number]) OT [id number] Comments OT Self-Feeding Comments Not meal time OT ADL-Grooming General Evaluation Grooming Ability Standby Assistance Areas Needing Assistance Face Washing Comments OT Grooming Comments In shower OT ADL-Oral Care Comments Oral Care Comments Not performed OT ADL-Dressing General Eval Lower Body Dressing Ability Moderate Assistance Areas Needing Assistance Underpants/Brief,Socks Comments OT Dressing Comments Initiated training with reeler operator to doff socks. To show pt tomorrow socks aid to increase ease to jimenez her socks. OT ADL-Toileting Comments OT Toileting Comments not performed OT ADL-Bathing Bathing Type Bathing Type Shower General Evaluation Bathing Ability Moderate Assistance Areas Needing Assistance Retrieving/Setting Up Items, Wash/Dry Back,Wash/Dry Lower Extremities Devices Bathing Equipment Hand Held Shower Sprayer, Shower Chair with Arms,Grab Bars Comments OT Bathing Comments Pt able to do more for herself today. Nursing aid came in to help complete showering needs to help dry the pt off. M5 OT- IP IADL's Start: 11/20/20 12:26 Freq: Status: Active Protocol: Document 11/20/20 12:26 CGR (Rec: 11/20/20 13:10 CGR [id number]) OT-Instrumental Activities of Daily Living Deficits IADL Deficits Identified Deficits Home Safety Awareness Awareness of Need for Assistance at Home Decreased Awareness Ability to Problem Solve Emergency Unable to Problem Solve Situations Home Safety Comments Pt demonstrates poor safety awareness and problem solving OT- Vision and Hearing OT- Vision Assessment Vision Assessment Comments Pt states that her strabismus is typical and that she has had it since she was a child. M7 OT- IP Mobility and Balance Start: 11/20/20 12:26 Freq: Status: Active Protocol: Document 11/23/20 15:49 [facility] (Rec: 11/23/20 16:01 [facility] [id number]) OT-Transfer Assessment Sit to and From Stand Sit to and from Stand Standby Assistance Transfers Transfer Ability Standby Assistance,Contact Guard Assistance Technique Transfer Destination Chair,Shower Stall Transfer Technique Stand Step Pivot Devices Transfer Assistive Devices Gait Belt,Front Wheeled Walker OT- Balance Assessment Sitting Balance and Reactions Static Sitting Balance Ability Normal Dynamic Sitting Balance Ability Good Standing Balance and Reactions Static Standing Balance Ability Fair M8 OT- IP Objective Assessments Start: 11/20/20 12:26 Freq: Status: Active Protocol: Document 11/20/20 12:26 CGR (Rec: 11/20/20 13:10 CGR [id number]) OT Gross Range of Motion Upper Extremity Range of Motion Assessment Within Functional Limits OT Strength Upper Extremity Strength Assessment Within Functional Limits OT- Coordination Assessment Upper Extremity Finger to Nose Test Within Functional Limits Finger Tapping Test Within Functional Limits OT-Muscle Tone Assessment Muscle Tone WNL Yes OT Sensation Assessment Edema Edema Absent M9 OT- IP Assessment and Plan Start: 11/20/20 12:26 Freq: Status: Active Protocol: Document 11/23/20 15:49 [facility] (Rec: 11/23/20 16:01 [facility] [id number]) OT Summary Assessment and Plan Potential Rehabilitation Potential Good Analytic Complexity at Evaluation Moderate Summary OT Impairments Pain,Balance,Functional Cognition,Functional Mobility, Dressing,Toileting,Bathing, Toilet Transfers,Shower Transfers,Activity Tolerance Progress Towards Goals Slow Progress due to Pain Assessment Summary Pt able to tolerate showering today and able to make call to facilitate getting her equipment needs. Goals Self-Feeding Goal Independent Grooming Goal Independent Dressing Goal Independent Toileting Goal Independent Bathing Goal Independent Toilet Transfer Goal Independent Shower Transfer Goal Independent Days to Meet Goals 5 Frequency of Treatment Frequency Of Treatment Once a Day Treatment Plan OT Treatment Plan ADL Training,Functional Cognition Training,Functional Mobility,Patient/Family Education,Discharge Planning Discharge Recommendations OT Discharge Recommendations Home with Assistance Home Equipment Needs 2ww, shower seat Transportation Needs at Discharge Private Vehicle
--- NOTE | 2020-11-23 16:27 | P.PN_ITS ---
Subjective Subjective Date Patient Seen: 11/23/20 Interval history: Patient is a 60-year-old female with history of hep C cirrhosis, breast cancer, presented with right hip pain. She was found to have left femur metastases for which she underwent pinning. On workup patient found to have right adnexal mass on CT and multiple metastatic disease in the pelvis and bilateral hips on MRI. Additionally she has large gluteal hematoma with acute blood loss anemia. She has new diagnosis of type 2 diabetes and hyperparathyroidism. Patient states pain is controlled with ambulation. She has progressive blood loss from the gluteal hematoma and getting transfused 1 unit PRBC. Exam Vital Signs (past 8 hours): - 11/23/20 08:35 11/23/20 08:52 11/23/20 12:00 Temperature 98.8 F 98.2 F 98.2 F Pulse Rate 87 88 85 Respiratory Rate 14 16 16 Blood Pressure 138/78 144/79 H 129/80 Pulse Oximetry 95 11/23/20 16:15 Temperature 97.1 F L Pulse Rate 96 H Respiratory Rate 19 Blood Pressure 130/80 Pulse Oximetry 96 Oxygen Delivery Method Room Air Oxygen Flow Rate 0 Narrative Exam Narrative: General: Alert and cooperative, NAD Lungs: Clear to auscultation Extremities: No distal edema. There is extensive left gluteal ecchymosis extending down the thigh. Objective Labs Result Diagrams: 11/23/20 05:30 11/23/20 05:30 Labs: Laboratory Results - last 24 hr 11/23/20 11/23/20 11/23/20 05:30 05:30 06:17 WBC 2.6 L RBC 2.37 L Hgb 7.1 L Hct 21.5 L MCV 90.6 MCH 30.1 MCHC 33.2 RDW 14.0 Plt Count 56 L Neut % (Auto) 59.4 Lymph % (Auto) 29.0 [place] % (Auto) 8.6 Eos % (Auto) 2.6 Baso % (Auto) 0.4 Neut # (Auto) 1500 Lymph # (Auto) 700 L [place] # (Auto) 200 Eos # (Auto) 100 Baso # (Auto) 0 Sodium 138 Potassium 4.0 Chloride 110 H Carbon Dioxide 27 BUN 20 H Creatinine 0.70 Estimated GFR > 60.0 BUN/Creatinine Ratio 28.6 H Glucose 188 H Calcium 9.8 Blood Type O Positive Antibody Screen Negative Crossmatch See Detail [facility] Medical History Breast cancer Imbalance of muscle of eye Multiple lesions of metastatic malignancy Surgical History History of eye surgery History of lumpectomy History of total abdominal hysterectomy History of vascular access device Status post surgery (03/15/13) Family History Father No significant medical problems Mother Stroke Diabetes mellitus Daughter Diabetes mellitus Social History household members: spouse and children Smoking Status: Never smoker alcohol intake: current Assessment & Plan Assessment & Plan narrative: This is a 60-year-old female patient with a known history of hep C cirrhosis, breast cancer having received chemo therapy hormone therapy and radiation therapy who presents to the orthopedist's office for right hip pain increasing over 3 weeks developing severe groin pain that is worsened with ambulation who was admitted after a metastasis was found in her left femur, she underwent operative pinning for stabilization with Dr. Saldaña, orthopedic surgery. 1. Metastatic left intertrochanteric femur lesion, acute, present on admission, active. -plain film imaging of the hip and pelvis finds no etiology for the pain therefore MRI Was obtained which finds multiple metastatic disease in the pelvis and bilateral hips largest lesion in the left intertrochanteric femur and femoral neck. -Dr. Saldaña has taken the patient to the OR and is status post cephalomedullary nail on the left femur on 11/18/2020. -postoperative orthopedic care per the orthopedic team. -complicated by gluteal hematoma. H/h continue to fall, and transfuse 1 unit PRBC on 11/18/2020 2. Metastatic breast cancer, chronic -patient states he was diagnosed with breast cancer approximately 3 and half years ago and has undergone chemo hormone and radiation therapies with last treatment being 2 months ago. -patient receives her cancer care at [facility]. -recommend outpatient follow up with her oncologist after discharge. CT did reveal further R adnexal mass. -given dose of zometa x1 as noted below. 3. Type 2 diabetes, new diagnosis, active. -patient without history of diabetes and no medical therapy for hyperglycemia. Blood sugar on admission labs is 259. -obtained a hemoglobin A1c which is found to be 8.8 consistent with an approximate average blood sugar of 200. -ordered fingerstick blood sugars a.c. and hs with correctional insulin high- dose scale. Now up to 14 U lantus, 4 U TID AC short acting, continue to adjust as necessary. -small consistent carbohydrate to enhance glycemic control and reduce risk for infection. -will likely discharge on oral therapy and insulin given poor control here. 4. Mild hypercalcemia, acute versus chronic, present on admission, improved. -PTH 438 significantly high, 25 OH vitamin D 26.1, normal eGFR -PTH suggestive of primary hyper parathyroidism, differential includes h ypercalcemia due to malignancy -calcium 11.9 on admission, down to 9.8 with hydration and Zometa 4 mg given on 11/20/2020 -recommend outpatient follow up with endocrinology. 5. Abnormal EKG, acute versus chronic, present on admission, active. -patient denies complaints of chest pain or palpitations, has risk factors including hypertension, diabetes not previously diagnosed and obesity. -preoperative 12 lead EKG reveals sinus rhythm at rate of 80 with a right bundle branch block left axis shift with notation of inverted T-waves in lead 3 and AVF. -repeated 12 lead EKG postoperatively an EKG is unchanged. -troponin was negative. 6. Acute blood loss anemia secondary to gluteal hematoma - secondary to surgery, CT noted hematoma and now evident on exam -transfuse 1 unit PRBC on 11/23/2020 for hemoglobin of 7.1 -received iron sucrose 200 mg IV x1 on 11/23/2020 -oral iron 7. Hep C cirrhosis, chronic - no additional management recommended at this time. Likely contributed along with her thrombocytopenia to gluteal hematoma. - likely etiology of her chronic thrombocytopenia which remains stable with platelet count in the 50s 8. Right adnexal mass - outpatient follow up with ink maker recommended, Pelvic ultrasound prior to consultation can be done on an outpatient setting. VTE prophylaxis: Contraindicated due to thrombocytopenia. Diet: Small consistent carbohydrate Code status: DNR, the patient designates her to be surrogate decision maker. Dispo: Home with assistance and home health, anticipate discharge likely tomorrow if h/h stabilizes. Recommend outpatient follow up with her oncologist, STR[facility]STER and endocrinology referrals from PCP for adnexal mass and elevated calcium. Quality VTE Deep Vein Thrombosis/Pulmonary Embolism Present on Admission: No
[2020-11-23] MEDS: INSULIN GLARGINE 100 UNIT/ML 3ML PEN 14 UNIT SUBCUT (21:35)
[2020-11-24 00:45] VITALS: BP 147/94; PULSE 87; RESP 17; TEMP 36.3; O2SAT 95
--- NOTE | 2020-11-24 01:02 | PC.NURSE ---
Addendum entered by Lydia Shook R.N. 11/24/20 06:34: Medicated with a.m. with Oxycodone for complaint of 4/10 left hip pain and is currently asleep. Original Note: Patient is alert and oriented. Has amblyopia right eye. Breath sounds CTA with RA sat of 95%. HRR. BP trends high and currently 147/94. Denies nausea. BT hypoactive; did have BM yesterday. Denies dysuria, frequency or urgency with urination. Up to bathroom with walker and 1 assist. Aquacel dressings to left hip are CDI. Hemovac site dressing is CDI. Has bruising to left thigh and buttock. Denies pain. Chronic numbness in bilateral feets unchanged from pre-op. Wearing bilateral calf SCD's. Fall risk score is high and bed alarm is activated.
[2020-11-24 04:00] VITALS: BP 151/85; PULSE 84; RESP 18; TEMP 36.8; O2SAT 92
[2020-11-24] MEDS: SODIUM CHLORIDE 0.9% FLUSH 10 ML IV ×2 (05:40→10:29)
[2020-11-24] MEDS: OXYCODONE IR 10 MG TABLET PO ×2 (05:44→10:29)
[2020-11-24 06:01] LABS: Add Manual Diff / Slide Review NO; Basophils Absolute Auto 0 /uL (0-100); Basophils Percent Auto 0.8 % (0-2); Eosinophils Absolute Auto 100 /uL (0-450); Eosinophils Percent Auto 2.4 % (2-4); Hematocrit 24.9 % (36-46); Hemoglobin 8.2 g/dL (12.0-16.0); Lymphocytes Absolute Auto 800 /uL (1100-4500); Lymphocytes Percent Auto 32.4 % (25-40); Mean Corpuscular HGB Conc 33.1 % (30-36); Mean Corpuscular Hemoglobin 30.1 PG (26-34); Mean Corpuscular Volume 91.1 fL (80-100); Monocytes Absolute Auto 200 /uL (0-900); Monocytes Percent Auto 8.8 % (3-14); Neutrophils Absolute Auto 1300 /uL (1500-7000); Neutrophils Percent Auto 55.6 % (50-75); Platelet Count 61 X10^3/uL (150-400); Red Blood Cell Count 2.73 X10^6/uL (4.0-5.2); White Blood Cell Count 2.4 X10^3/uL (4.5-11.0)
[2020-11-24 06:30] LABS: BUN Creatinine Ratio 26.8 (6-22); Blood Urea Nitrogen 19 mg/dL (7-17); Calcium 9.7 mg/dL (8.4-10.2); Carbon Dioxide 27 mmol/L (22-32); Chloride 110 mmol/L (98-107); Estimated Glomerular Filt Rate > 60.0 mL/min (>60); Glucose 143 mg/dL (70-100); HEMOLYSIS < 15 (0-50); Potassium 3.9 mmol/L (3.4-5.1); Sodium 138 mmol/L (137-145)
--- NOTE | 2020-11-24 07:30 | P.PN_ITS ---
Subjective Subjective Date Patient Seen: 11/24/20 Time Patient Seen: 07:30 Interval history: POD #6 s/p left long cephalomedullary nail for a metastatic lesion to the left intertrochanteric femur region with Meril's score of [address] Saldaña. Patient is doing very well today. She feels much better after her transfusion yesterday. Exam Vital Signs (past 8 hours): - 11/24/20 00:45 11/24/20 04:00 Temperature 97.4 F L 98.3 F Pulse Rate 87 84 Respiratory Rate 17 18 Blood Pressure 147/94 H 151/85 H Pulse Oximetry 95 92 Oxygen Delivery Method Room Air Oxygen Flow Rate 0 Narrative Exam Narrative: Patient is sitting in bedside chair in NAD. She is alert and oriented X3. Calves are soft, compressible, and nontender bilaterally. SILT throughout BLEs. Aquacel dressings are CDI. Hematoma improved from yesterday. Objective Labs Result Diagrams: 11/24/20 05:40 11/24/20 05:40 Labs: Laboratory Results - last 24 hr 11/23/20 11/24/20 11/24/20 06:17 05:40 05:40 WBC 2.4 L RBC 2.73 L Hgb 8.2 L Hct 24.9 L MCV 91.1 MCH 30.1 MCHC 33.1 RDW 14.0 Plt Count 61 L Neut % (Auto) 55.6 Lymph % (Auto) 32.4 [place] % (Auto) 8.8 Eos % (Auto) 2.4 Baso % (Auto) 0.8 Neut # (Auto) 1300 L Lymph # (Auto) 800 L [place] # (Auto) 200 Eos # (Auto) 100 Baso # (Auto) 0 Sodium 138 Potassium 3.9 Chloride 110 H Carbon Dioxide 27 BUN 19 H Creatinine 0.71 Estimated GFR > 60.0 BUN/Creatinine Ratio 26.8 H Glucose 143 H Calcium 9.7 Blood Type O Positive Antibody Screen Negative Crossmatch See Detail COUNTS INCLUDE 234 BEDS AT THE [facility] Medical History Breast cancer Imbalance of muscle of eye Multiple lesions of metastatic malignancy Surgical History History of eye surgery History of lumpectomy History of total abdominal hysterectomy History of vascular access device Status post surgery (03/15/13) Family History Father No significant medical problems Mother Stroke Diabetes mellitus Daughter Diabetes mellitus Social History household members: spouse and children Smoking Status: Never smoker alcohol intake: current Assessment & Plan Post-op Postoperative Procedures: Procedures Operation Date: 11/18/20 14:00 Actual Procedures Side Surgeon p Left Long Cephalomedulary IM Femoral nail Left Baltazar Saldaña MD Patient will continue to mobilize with PT. She is to follow up with our office 10-14 days PO. Hospitalist managing discharge once medically stable. Quality VTE Deep Vein Thrombosis/Pulmonary Embolism Present on Admission: No
[2020-11-24 08:00] VITALS: BP 156/90; PULSE 83; RESP 18; TEMP 36.8; O2SAT 96
--- NOTE | 2020-11-24 09:45 | OT.IP.TRT ---
Current Diagnoses Secondary malignant neoplasm of bone (11/19/20) Surgery Performed Operation Date: 11/18/20 14:00 Actual Procedures p Left Long Cephalomedulary IM Femoral nail(Left) - Baltazar Saldaña MD Occupational Therapy Treatment Note M2 OT-IP Current Condition Start: 11/20/20 12:26 Freq: Status: Active Protocol: Document 11/20/20 12:26 CGR (Rec: 11/20/20 13:10 CGR [id number]) Occupational Therapy Current Condition Current Condition Evaluation Date 11/20/20 Treatment Diagnosis Metastatic leasion with pathological fx s/p 11/18 IM nailing. Diagnosis Onset Date 11/18/20 Weight Bearing Status Weight Bearing Status Weight Bear as Tolerated M3 OT- IP Subjective and Pain Start: 11/20/20 12:26 Freq: Status: Active Protocol: Document 11/24/20 09:56 [facility] (Rec: 11/24/20 10:00 [facility] [id number]) OT- Subjective Occupational Therapy Visit Type Type Treatment Note Visit Start Time 09:32 Visit Stop Time 09:45 Total Visit Minutes 13 Occupational Therapy Visit Comments Patient Comments Pt agreed to go over lb dressing equipment. Patient/Caregiver Goals To go home. OT Pain Assessment Pain When Pain Assessed At Rest Pain Present Pain Present Pain Reported Location left hip Intensity 2 Scale Used Numeric (0 - 10) M4 OT- IP ADL's Start: 11/20/20 12:26 Freq: Status: Active Protocol: Document 11/24/20 09:56 [facility] (Rec: 11/24/20 10:00 [facility] [id number]) OT [id number] Comments OT Self-Feeding Comments Not meal time OT ADL-Oral Care Comments Oral Care Comments Not performed OT ADL-Dressing General Eval Lower Body Dressing Ability Standby Assistance Areas Needing Assistance Socks Assistive Devices Dressing Assistive Devices Cold Mill Supervisor,Sock Aid Comments OT Dressing Comments Able to educated pt on use of grocery store bagger and sock aid to help improve independence for ADL needs. After initial vc, pt able to perform with good safety on her own. OT ADL-Toileting Comments OT Toileting Comments not performed M5 OT- IP IADL's Start: 11/20/20 12:26 Freq: Status: Active Protocol: Document 11/20/20 12:26 CGR (Rec: 11/20/20 13:10 CGR [id number]) OT-Instrumental Activities of Daily Living Deficits IADL Deficits Identified Deficits Home Safety Awareness Awareness of Need for Assistance at Home Decreased Awareness Ability to Problem Solve Emergency Unable to Problem Solve Situations Home Safety Comments Pt demonstrates poor safety awareness and problem solving OT- Vision and Hearing OT- Vision Assessment Vision Assessment Comments Pt states that her strabismus is typical and that she has had it since she was a child. M7 OT- IP Mobility and Balance Start: 11/20/20 12:26 Freq: Status: Active Protocol: Document 11/23/20 15:49 [facility] (Rec: 11/23/20 16:01 [facility] [id number]) OT-Transfer Assessment Sit to and From Stand Sit to and from Stand Standby Assistance Transfers Transfer Ability Standby Assistance,Contact Guard Assistance Technique Transfer Destination Chair,Shower Stall Transfer Technique Stand Step Pivot Devices Transfer Assistive Devices Gait Belt,Front Wheeled Walker OT- Balance Assessment Sitting Balance and Reactions Static Sitting Balance Ability Normal Dynamic Sitting Balance Ability Good Standing Balance and Reactions Static Standing Balance Ability Fair M8 OT- IP Objective Assessments Start: 11/20/20 12:26 Freq: Status: Active Protocol: Document 11/20/20 12:26 CGR (Rec: 11/20/20 13:10 CGR [id number]) OT Gross Range of Motion Upper Extremity Range of Motion Assessment Within Functional Limits OT Strength Upper Extremity Strength Assessment Within Functional Limits OT- Coordination Assessment Upper Extremity Finger to Nose Test Within Functional Limits Finger Tapping Test Within Functional Limits OT-Muscle Tone Assessment Muscle Tone WNL Yes OT Sensation Assessment Edema Edema Absent M9 OT- IP Assessment and Plan Start: 11/20/20 12:26 Freq: Status: Active Protocol: Document 11/24/20 09:56 [facility] (Rec: 11/24/20 10:00 [facility] [id number]) OT Summary Assessment and Plan Potential Rehabilitation Potential Good Analytic Complexity at Evaluation Moderate Summary Progress Towards Goals Progressing Toward Goals Assessment Summary Pt doing well, LB dressing equipment issued and doing well overall. Pt has a supportive to assist and looking to go home today. Goals Dressing Goal Independent Toileting Goal Independent Bathing Goal Independent Toilet Transfer Goal Independent Shower Transfer Goal Independent Days to Meet Goals 2 Frequency of Treatment Frequency Of Treatment Once a Day Treatment Plan OT Treatment Plan ADL Training,Functional Cognition Training,Functional Mobility,Patient/Family Education,Discharge Planning Discharge Recommendations OT Discharge Recommendations Home with Assistance Home Equipment Needs 2ww, shower seat, LB dressing equipment issued, quad cane Transportation Needs at Discharge Private Vehicle
--- NOTE | 2020-11-24 10:25 | PT.IPTN ---
Current Diagnoses Secondary malignant neoplasm of bone (11/19/20) Surgery Performed Operation Date: 11/18/20 14:00 Actual Procedures p Left Long Cephalomedulary IM Femoral nail(Left) - Baltazar Saldaña MD Physical Therapy Treatment Note M2 PT-IP Current Condition Start: 11/19/20 11:47 Freq: NEEDED Status: Active Protocol: Document 11/19/20 10:27 AB (Rec: 11/19/20 12:48 AB [id number]) Physical Therapy Current Condition Current Condition Evaluation Date 11/19/20 Treatment Diagnosis s/p L hip nailing; difficulty in walking Onset Date 11/18/19 Weight Bearing Status Weight Bearing Status Weight Bear as Tolerated Allowed Weight Bearing Amount (enter % LLE WBAT or #) (%) M3 PT-IP Subjective Start: 11/19/20 11:47 Freq: NEEDED Status: Active Protocol: Document 11/24/20 10:25 AB (Rec: 11/24/20 11:35 AB [id number]) Subjective Physical Therapy Visit Type Type Treatment Note Visit Start Time 10:25 Visit Stop Time 10:52 Total Visit Minutes 27 Number of LOOM CHECKER Visits 0 M4 PT-IP Mobility and Gait Start: 11/19/20 11:47 Freq: NEEDED Status: Active Protocol: Document 11/24/20 10:25 AB (Rec: 11/24/20 11:35 AB [id number]) PT-Bed Mobility Assessment Sit to Supine Sit to Supine Moderate Assistance,1 Person Assistance PT-Transfer Assessment Sit to and From Stand Sit to and from Stand Standby Assistance,1 Person Assistance,Use of Upper Extremities Equipment Transfer Assistive Device Gait Belt,Front Wheeled Walker Orthotic/Prosthetic Devices or Brace: No Transfers Transfer Destination Bed,Chair Transfer Technique ambulated using FWW Transfer Ability Level of Assist Standby Assistance Comments Mobility Comments checked on pt and pt's room and bathroom doors a closed. PT knocked to check on pt and asked pt if she is using the toilet and pt said yes and that she needs help. Found pt in the bathroom standing up using FWW attempted to put her pants on. pt stated that she needs help to put her LLE into the pants. Pt apparently took a shower and was trying to get dressed by herself. Assisted pt with dressing. NAC came in after a few minutes and assisted as well. pt ambulated from the toilet to the chair using FWW SBA. Pt agreed to ambulate more in room and completed ~ 25 ft and requested to go back to bed. stated that she is very tired . completed sit to supine mod A with LLE elevation to bed. positioned in bed. call light and table placed within reach . educated pt on safety and to positioned clothes first prior to standing up and given pt pants management as an example. pt agreed. Pt confirmed that she will be going back to the house and not the trailer and that her spouse was able to get a w/c and FWW for her to use. Gait Assessment Gait Gait Assistance Required: Standby Assistance Distance (Feet) 25 Able to Maintain Weight Bearing Status Yes During Gait Assistive Devices Assistive Device Gait Belt,Front Wheeled Walker Orthotic/Prosthetic Devices or Brace: No Gait Deviations General Gait Pattern Antalgic,Decreased Stride Length,Decreased Feet Clearance,Step-to Gait Factors Limiting Gait Function Factors Limiting Gait Function Decreased Activity Tolerance, Decreased Sensation,Decreased Strength,Difficulty Following Directions,Limited Range of Motion,Poor Balance,Poor Safety Awareness M5 PT-IP Objective Assessments Start: 11/19/20 11:47 Freq: NEEDED Status: Active Protocol: Document 11/19/20 10:27 AB (Rec: 11/19/20 12:48 AB [id number]) Orientation Orientation/Cognition Level of Alertness Alert Orientation Name,Age,Birthday,Month,Date, Year,Day of Week,Place, Situation Language Function Ability No Deficits Noted Safety Awareness Understands Safety Issues Memory Description No Deficits Noted Gross Range of Motion Lower Extremity ROM Assessment Within Functional Limits Impairments increarse LLE muscle guarding due to pain Strength Lower Extremity Strength Assessment Left Impaired Hip 3-/5 Knee 3-/5 Sensation Assessment Sensation Light Touch Impaired Proprioception (Position) Impaired Comments Sensation Comments 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 M6 PT-IP Treatment Start: 11/19/20 11:47 Freq: NEEDED Status: Active Protocol: Document 11/24/20 10:25 AB (Rec: 11/24/20 11:35 AB [id number]) Physical Therapy Treatment Education Education Provided Safety M7 PT-IP Assessment and Plan Start: 11/19/20 11:47 Freq: NEEDED Status: Active Protocol: Document 11/24/20 10:25 AB (Rec: 11/24/20 11:35 AB [id number]) PT Summary Assessment and Plan Potential Rehabilitation Potential Good Summary Impairments Pain,ROM,Strength,Balance, Coordination,Sensation,Tone, Cognition,Bed Mobility, Transfers,Gait,Activity Tolerance Progress Towards Goals Slow Progress due to Medical Issues,Slow Progress due to Activity Tolerance Assessment Summary pt progressing slowly but continues to have decrease activity tolerance affecting mobility independence and also has decrease safety awareness . pt plans to go home and spouse to assist her at home. pt will need HHPT. Goals Bed Mobility Goal Standby Assistance Transfer Goal Independent,Front Wheeled Walker Gait Goal Independent,Front Wheel Walker Gait Distance 75 Other Goals improve ambulation using FWW 150 ft CGA up/down 2 steps 2 rails min A Days to Meet Goals 10 Frequency of Treatment Frequency Of Treatment Twice a Day Treatment Plan Physical Therapy Treatment Plan Bed Mobility Training,Transfer Training,Gait Training, Therapeutic Exercise,Balance Retraining,Post Op Education, Discharge Planning,Hot or Cold Pack,Neuromuscular Re-ed, Coordination Retraining,Manual Therapy Recommendations To Nursing Amount of Assist Needed 1 Person Assist Discharge Recommendations PT Discharge Recommendations Home with 05/06 Assist,Home Health Transportation Needs at Discharge Private Vehicle
[2020-11-24] MEDS: ACETAMINOPHEN 325 MG TABLET 975 MG PO (10:28)
[2020-11-24] MEDS: polyethylene glycoL 3350 17 GM POWD.PACK PO (10:28)
[2020-11-24] MEDS: MAGNESIUM OXIDE 400 MG TABLET PO (10:28)
[2020-11-24] MEDS: FERROUS SULFATE 325 MG TABLET PO (10:29)
[2020-11-24] MEDS: DOCUSATE 100 MG CAPSULE PO (10:29)
[2020-11-24] MEDS: lisinopriL 20 MG TABLET PO (10:29)
[2020-11-24] MEDS: INSULIN ASPART 100 UNIT/ML INSULN PEN SUBCUT ×2 (10:30)
[2020-11-24 12:00] VITALS: BP 142/84; PULSE 107; RESP 18; TEMP 37; O2SAT 96
--- NOTE | 2020-11-24 14:30 | PC.NURSE ---
Discharge: Pt feels ready to d/c home. Is voiding w/out problems. Po pain meds are effective. Tolerates diet w/out problems. Wound care instructions given and proximal aquacel dressing was changed. Lisa deaccessed per protocol, had a brisk blood return prior to removing. Instructed on how to give insulin via pen. Pt was able to prep pen and verb instructions on how to give. Gave her own 5 units of insulin. Reviewed how to take a blood sugar. Dtr is present at time of teaching and she has been a diabetic and the patient will be staying with her. Pt's dtr also gives self her own insulin injections and checks her blood sugars. Pt reports she feels comfortable being with dtr to help her. See PT notes. Pt voiced no concerns at time of d/c. D/c home via auto w/dtr.
--- NOTE | 2020-11-24 15:43 | CM.DPC ---
DCP/continued: Received notification from provider, patient medically cleared to d/c home today with HH. Reviewed all notes. Current d/c plan is home with [facility]. POLICY ADVISER asked [facility] to notify [facility] of discharge today. All records were faxed on 11-20-20. P: Home today with [facility]. FRED Guzman
--- NOTE | 2020-11-24 20:30 | P.DS_ITS ---
History of Present Illness History of Present Illness Chief complaint: left hip pain 08/22 x21 days Narrative: Ms. Jacob Sheriff is a 60-year-old female with a past medical history of breast cancer having undergone chemo therapy, hormone therapy and radiation therapy, hypertension and ocular muscle imbalance who presents to the ER with hip pain. The patient reports that she had hip pain onset approxi mately 3 weeks ago that has been progressive in severity to the point she presents to Dr. Astudillo's office yesterday where pelvic and hip films found no explanation for etiology the patient's severe pain. MRI was ordered for this morning where upon reading the patient is found to have metastatic lesion read as and in pending pathologic fracture. She has had no prior known metastatic lesions. The patient was directed to the ER for further evaluation and hospital admission with plan for intramedullary nailing. The patient reports the pain is worse when ambulating has been taking Robaxin and tramadol for her pain with minimal benefit. The patient reports no constitutional symptoms of fevers or chills, headaches or dizziness. She has had no complaints of runny nose or nasal congestion. She denies chest pain or palpitations had no shortness of breath cough or wheezing. She denies abdominal pain, nausea vomiting, diarrhea or constipation. She has an infusion port in the right upper chest and reports her last chemotherapy and radiation therapy were approximately 2 months ago. Upon arrival to the ER the patient's temperature 98.1?, heart rate of 78, blood pressure 197/98, respirations 16 saturating 98% on room air. MR reading finds multifocal metastatic disease the pelvis and bilateral hips, largest lesion the left intertrochanteric femur and femoral neck. Twelve lead EKG is obtained finding a sinus rhythm at rate of 80 with left axis deviation and right bundle branch block with T-wave inversion and lead 3 and AVF. Initial laboratory findings reveal a white count of 3.3 hemoglobin of 12.5 and thrombocytopenia 48. Electrolytes within normal limits and has a BUN of 21 and creatinine 0.84. Her nonfasting glucose is 259. She has an elevated calcium at 11.9. She has a total bilirubin 0.4, AST of 27, ALT of 23 and elevated alkaline phosphatase at 140. COVID screening is negative. The patient is admitted to the hospitalist service with Dr. Saldaña as agricultural consultant who is taking the patient directly to the OR for surgery. Discharge Providers Provider Date of admission: 11/19/20 10:31 Discharge Date: 11/24/20 Primary care physician: Neville Davis MD Consults: 11/18/20 14:02 Consult to Anesthesiology Routine Comment: Consulting Provider: Anesthesiologist Reason for consultation: Post operative pain managment 11/18/20 18:22 Consult to Discharge Planning Routine Comment: Consult to Physical Therapy Evaluate & Treat Comment: Physician Instructions: Evaluate and Treat Consult to Respiratory Therapy Evaluate & Treat Comment: Physician Instructions: Evaluate and treat 11/19/20 12:58 Consult to Occupational Therapy Evaluate & Treat Comment: Physician Instructions: Evaluate and treat 11/20/20 15:03 Consult to Home Health Routine Comment: Reason For Exam: Home Health Upon DC Discharge provider: Mitchell Ceballos MD Summary Hospital Course Discharge Diagnosis: 1. Metastatic left inter trochanteric femur lesion 2. Metastatic breast cancer 3. Type 2 diabetes, poor control, new diagnosis 4. Hyperparathyroidism, undetermined primary versus secondary 5. Hypercalcemia 6. Acute blood loss anemia secondary to gluteal hematoma 7. Chronic hep C cirrhosis 8. Right adnexal mass Hospital Course: This is a 60-year-old female patient with a known history of hep C cirrhosis, breast cancer having received chemo therapy hormone therapy and radiation therapy who presents to the orthopedist's office for right hip pain increasing over 3 weeks developing severe groin pain that is worsened with ambulation who was admitted after a metastasis was found in her left femur, she underwent operative pinning for stabilization with Dr. Saldaña, orthopedic surgery. 1. Metastatic left intertrochanteric femur lesion, acute, present on admission, active. -plain film imaging of the hip and pelvis finds no etiology for the pain therefore MRI Was obtained which finds multiple metastatic disease in the pelvis and bilateral hips largest lesion in the left intertrochanteric femur and femoral neck. -Dr. Saldaña has taken the patient to the OR and is status post cephalomedullary nail on the left femur on 11/18/2020. -postoperative orthopedic care per the orthopedic team. -complicated by gluteal hematoma. H/h continue to fall, and transfuse 1 unit PRBC on 11/18/2020 -patient had PT/OT in hospital and safe to return home with home health services 2. Metastatic breast cancer, chronic -patient states he was diagnosed with breast cancer approximately 3 and half years ago and has undergone chemo hormone and radiation therapies with last treatment being 2 months ago. -patient receives her cancer care at [facility] [place]. -recommend outpatient follow up with her oncologist after discharge. CT did reveal further R adnexal mass. -given dose of zometa x1 as noted below. 3. Type 2 diabetes, new diagnosis, active. -patient without history of diabetes and no medical therapy for hyperglycemia. Blood sugar on admission labs is 259. -obtained a hemoglobin A1c which is found to be 8.8 consistent with an approxim ate average blood sugar of 200. -started on insulin in hospital and being discharged on bedtime insulin as well as metformin -follow-up with PCP on diabetes management 4. Mild hypercalcemia, acute versus chronic, present on admission, improved. -PTH 438 significantly high, 25 OH vitamin D 26.1, normal eGFR -PTH suggestive of primary hyper parathyroidism, differential includes hypercalcemia due to malignancy -calcium 11.9 on admission, down to 9.8 with hydration and Zometa 4 mg given on 11/20/2020 -recommend outpatient follow up with endocrinology. 5. Acute blood loss anemia secondary to gluteal hematoma - secondary to surgery, CT noted hematoma and now evident on exam -transfuse 1 unit PRBC on 11/23/2020 for hemoglobin of 7.1 -received iron sucrose 200 mg IV x1 on 11/23/2020 -oral iron 6. Hep C cirrhosis, chronic - no additional management recommended at this time. Likely contributed along with her thrombocytopenia to gluteal hematoma. - likely etiology of her chronic thrombocytopenia which remains stable with platelet count in the 50s 7. Right adnexal mass - outpatient follow up with yarrow gatherer recommended, Pelvic ultrasound prior to consultation can be done on an outpatient setting. Status at Discharge Cognitive/behavioral status at discharge: oriented Functional status at discharge: uses cane/walker Overall status at discharge: patient is progressing back to baseline Time Spent with Patient Time spent: Greater than 30 minutes Exam Vital Signs (past 8 hours): Oxygen Delivery Method Room Air Oxygen Flow Rate 0 Objective Labs Result Diagrams: 11/24/20 05:40 11/24/20 05:40 Labs: Laboratory Results - last 24 hr 11/24/20 11/24/20 05:40 05:40 WBC 2.4 L RBC 2.73 L Hgb 8.2 L Hct 24.9 L MCV 91.1 MCH 30.1 MCHC 33.1 RDW 14.0 Plt Count 61 L Neut % (Auto) 55.6 Lymph % (Auto) 32.4 Luna % (Auto) 8.8 Eos % (Auto) 2.4 Baso % (Auto) 0.8 Neut # (Auto) 1300 L Lymph # (Auto) 800 L Luna # (Auto) 200 Eos # (Auto) 100 Baso # (Auto) 0 Sodium 138 Potassium 3.9 Chloride 110 H Carbon Dioxide 27 BUN 19 H Creatinine 0.71 Estimated GFR > 60.0 BUN/Creatinine Ratio 26.8 H Glucose 143 H Calcium 9.7 PFSH Medical History Breast cancer Imbalance of muscle of eye Multiple lesions of metastatic malignancy Surgical History History of eye surgery History of lumpectomy History of total abdominal hysterectomy History of vascular access device Status post surgery (03/15/13) Family History Father No significant medical problems Mother Stroke Diabetes mellitus Daughter Diabetes mellitus Social History household members: spouse and children Smoking Status: Never smoker alcohol intake: current Discharge Plan Discharge Plan Patient Disposition: Home Provider Discharge Comment: Take Tylenol for mild pain. Use oxycodone only for moderate or severe pain. Take daily laxative such as dulcolax or Miralax while on oxycodone to prevent constipation. Follow up with your PCP for diabetes management. You can self-adjust Lantus by 2 units every few days to achieve AM fasting glucose < 140. We also noted elevated calcium and PTH levels with new diagnosis of hyperparathyroidism. You may need referral to coordinator of genetic services for this condition. Follow up with your oncologist Dr Magaña for findings of metastatic lesions in pelvis and hips. Discharge orders & Medications Prescriptions: New ferrous sulfate 325 mg (65 mg iron) Tablet 325 mg PO DAILY Qty: 30 RF: 0 magnesium oxide 400 mg (241.3 mg magnesium) Tablet 400 mg PO BID Qty: 60 RF: 0 Lantus Solostar U-100 Insulin 100 unit/mL (3 mL) Insulin Pen 20 unit SUBCUT BEDTIME Qty: 3 RF: 0 (DME) pen needle, diabetic [BD Ultra-Fine [place] Pen Needle] 32 gauge x 5/32 needle See Dose Instructions .ROUTE .MEDSUPPLY Qty: 30 RF: 0 metformin 500 mg tablet 500 mg PO BID Qty: 60 RF: 0 oxycodone 5 mg tablet 5 - 10 mg PO Q6H PRN (Reason: pain (scale score 4-6)) Qty: 50 RF: 0 Continued hydrochlorothiazide 12.5 MG capsule 12.5 mg DAILY PRN (Reason: Edema) Qty: 0 RF: 0 lisinopril 20 mg Tablet 20 mg PO BID RF: 0 tramadol 50 mg Tablet 50 mg PO Q6H PRN (Reason: Pain (Scale Score 4-6)) RF: 0 methocarbamol 500 mg Tablet 500 mg PO TID PRN (Reason: Spasms) RF: 0 Follow up/Referrals: Neville Davis MD [Primary Care Provider] - Discharge Health Status Multidrug resistant organism: No MDRO Diet/Activity/Treatments Diet: Carb-consistent/Diabetic Visit Report/Discharge Packet Instructions: How to Check Your Blood Glucose, Complications of Type 2 Diabetes, Type 2 Diabetes, DI for Heart Failure, DI for Femoral Fracture, DI for Constipation, How to Prevent Falls, DI for Prescription Opioid Use, Diabetes and Foot Care, How to Use an Insulin Pen, DI for Hyperparathyroidism Stand Alone Forms: Surgery Discharge Discharge Data Primary Care Provider: Neville Davis Quality VTE Deep Vein Thrombosis/Pulmonary Embolism Present on Admission: No
[2020-12-01 16:27] LABS: 1,25-Dihydroxy, Vitamin D-2 <10 pg/mL (.)
== END 2020-11-24 11:30 | disposition home or self-care (01) | DRG 481 ==
LOC: ED 14:34 → AC 17:50 → ED 17:52 → AC 18:04
PROVIDERS: Internal Medicine; Nurse Practitioner Adult Health; Orthopaedic Surgery Adult Reconstructive Orthopaedic Surgery; Admitting Provider Internal Medicine; Emergency Provider Emergency Medicine; PCP Family Medicine; Referring Provider Internal Medicine; Visit Provider Internal Medicine
PROC: 0QHC06Z Insertion of Intramedullary Internal Fixation Device into Left Lower Femur, Open Approach (ICD-10-PCS; CPT 27245; principal; 2020-11-18 14:00)
DX: C79.51 Secondary malignant neoplasm of bone (principal); D62 Acute posthemorrhagic anemia; M96.840 Postprocedural hematoma of a musculoskeletal structure following a musculoskeletal system procedure; C50.919 Malignant neoplasm of unspecified site of unspecified female breast; D69.6 Thrombocytopenia, unspecified; I45.10 Unspecified right bundle-branch block; B18.2 Chronic viral hepatitis C; K74.69 Other cirrhosis of liver; C80.1 Malignant (primary) neoplasm, unspecified; E11.65 Type 2 diabetes mellitus with hyperglycemia; M25.552 Pain in left hip; M79.605 Pain in left leg; E21.3 Hyperparathyroidism, unspecified; R94.31 Abnormal electrocardiogram [ECG] [EKG]; R19.09 Other intra-abdominal and pelvic swelling, mass and lump; Z20.822 Contact with and (suspected) exposure to COVID-19
CPT/HCPCS: 36415; 36430; 36591; 70460; 71260; 73551; 73552; 73721; 74177; 76000; 78306; 80048; 80053; 80076; 82306; 82310; 82652; 82962; 83036; 83540; 83550; 83735; 83970; 84100; 84443; 84484; 85014; 85018; 85025; 85651; 86140; 86850; 86900; 86901; 87635; 93005; 94762; 96361; 96372; 96374; 96375; 97116; 97129; 97162; 97166; 97530; 97535; 99284; A9503; C9803; G0378; P9016; J0690; J1170; J1642; J1650; J1756; J2405; J2704; J3010; J3489; Q9967

== ENCOUNTER → 2021-09-30 09:29 | Outpatient (CLI) | payer OTHER, SELFPAY ==
[2020-11-18 18:59] VITALS: BMI 31.3
--- NOTE | 2021-09-30 09:36 | DI.US.S_ITS ---
PROCEDURE: US PELVIC COMPLETE INDICATIONS: BREAST CANCER TECHNIQUE: Real-time scanning was performed of the pelvic organs, with image documentation. Additional endovaginal scanning was necessary due to incomplete visualization of the adnexal and endometrial structures by transabdominal scanning. COMPARISON: [facility], CT, CT CHEST ABD PEL W CON, 11/21/2020, 14:21. [facility], CT, CT CHEST ABD PEL W CON, 09/30/2021, 11:32. FINDINGS: Uterus: Uterus is anteverted measuring 8.3 x 4.2 x 5.5 cm. The endometrium measures 5.3 mm in combined thickness. Ovaries: Right ovary measures 3.3 x 2.8 x 3.2 cm. There is a 2.6 x 2.2 x 2.0 cm complex cystic mass in the right ovary. The left ovary is not visualized. Other: There is a small amount of free abdominal or pelvic fluid. IMPRESSION: 1. Mild thickening of the endometrium for a postmenopausal woman. Recommend gynecological follow-up. 2. A 2.6 x 2.2 x 2.0 cm complex cystic mass in the right ovary. Differential diagnoses include a hemorrhagic cyst, as well as benign versus malignant cystic neoplasm. Recommend a short-term follow-up ultrasound in 6 weeks. 3. Nonvisualization of left ovary. 4. A small amount of free fluid in the pelvis, presumably related to cirrhosis. Dictated by: Krysta Tierney M.D. on 09/30/2021 at 19:57 Approved by: Krysta Tierney M.D. on 09/30/2021 at 22:57
--- NOTE | 2021-09-30 09:37 | DI.NM.S_ITS ---
PROCEDURE: [place] BONE SCAN WHOLE BODY RADIOPHARMACEUTICAL: 22.5 mCi Tc-99m MDP IV. INDICATIONS: Breast cancer with known bone metastasis. TECHNIQUE: Delayed whole-body scintigrams were obtained approximately 3-4 hours after intravenous injection of radiotracer. Anterior and posterior views were acquired from vertex to feet. Additional left and right oblique views of the thoracic cage and pelvis were obtained. COMPARISON: [facility], CT, CT HEAD/BRAIN W CON, 11/21/2020, 14:21. [facility], CT, CT CHEST ABD PEL W CON, 11/21/2020, 14:21. [facility], MR, MR HIP LT WO CON, 11/18/2020, 7:47. [facility], CT, CT CHEST ABD PEL W CON, 09/30/2021, 11:32. [facility], CR, XR FEMUR LT MIN 2V, 11/18/2020, 14:49. [facility], CR, XR FEMUR LT 1V, 11/18/2020, 13:40. [facility], [place], [place] BONE SCAN WHOLE BODY, 11/19/2020, 11:56. FINDINGS: Again noted are foci of increased uptake involving the proximal left femur, and distal left femoral metaphysis, the right femoral neck and right femoral shaft, consistent with metastases. Increased uptake are seen in iliac bones bilaterally adjacent to the sacroiliac joints, compatible with metastases. The comparison CT showed small sclerotic bone lesions correlating with abnormal bone scan. There are multiple foci of increased uptake involving several left ribs, unchanged from the last exam, most likely posttraumatic in nature. The comparison CT showed several rib fractures with callus formation. Slightly asymmetric uptake in skull is probably positional. There is low level increased uptake in cervical, thoracic and lumbar spine with distribution indistinguishable from degenerative disc and facet disease; early metastasis to spine could be obscured by degenerative changes. IMPRESSION: 1. Metastatic bone lesions are present in femurs bilaterally and iliac bones bilaterally. Compared with the last bone scan, there is minimal interval change. 2. There are foci of increased uptake in multiple left ribs anteriorly, most likely posttraumatic in nature. Recommend clinical correlation. 3. Asymmetric uptake in skull is probably positional in nature. Dictated by: Krysta Tierney M.D. on 09/30/2021 at 16:40 Approved by: Krysta Tierney M.D. on 09/30/2021 at 16:55
--- NOTE | 2021-09-30 09:37 | DI.CT.S_ITS ---
PROCEDURE: CT CHEST ABD PEL W CON INDICATIONS: Secondary malignant neoplasm of bone. Breast cancer with history of bone metastasis. TECHNIQUE: After the administration of oral and intravenous contrast, axial sections acquired from the supraclavicular neck to the pubic symphysis. Coronal and sagittal reformats were performed. For radiation dose reduction, the following was used: automated exposure control, adjustment of mA and/or kV according to patient size. COMPARISON:[facility], CT, CT CHEST ABD PEL W CON, 11/21/2020, 14:21. FINDINGS: Image quality: Some images are degraded by motion artifact. CHEST: Lower Neck: No enlarged lymph nodes. Thyroid: Homogeneous attenuation. Axillae: No enlarged lymph nodes. Chest Wall: Redemonstrated left chest wall thickening with adjacent surgical clips (series 2, image 32). Lungs and Airways: No consolidation or suspicious nodules. Redemonstrated left upper lobe pleural thickening/scarring with subpleural reticulation, grossly unchanged. No suspicious nodule or mass is appreciated. Pleura: No pneumothorax or pleural effusions. Heart: Heart size is normal. No pericardial effusion. Thoracic Vessels: The aorta and pulmonary arteries demonstrate normal size. A right opal catheter seen with tip in SVC. Mediastinum and Giuliana: No enlarged lymph nodes. Esophagus: No wall thickening. No substantial hiatal hernia. ABDOMEN: Liver: Nodular contour of the liver, compatible with cirrhosis. Gallbladder: Pericholecystic fluid, which may reflect ascites. Biliary ducts: Unremarkable. Pancreas: Unremarkable. Spleen: Marked splenomegaly, measuring up to 17.7 cm. Adrenal Glands: Unremarkable. Kidneys and Ureters: Symmetric enhancement without evidence of obstructive uropathy. Bilateral nephrolithiasis, largest measuring up to 1.5 cm in the right interpolar region. Bilateral cortical hypoattenuating lesions are seen, measuring up to 2 cm, most consistent with cysts. Stomach and Bowel: No evidence of intestinal obstruction. Air-fluid level in the duodenal region (series 2, image 63), which may reflect a diverticulum. Normal appendix. Peritoneum: Small volume ascites. No free intraperitoneal gas. Ventral Wall: No hernia. Abdominal Nodes: A 1.5 x 2 cm mass is identified in the central mesentery (series 2, image 82). Vessels: Aorta and inferior vena cava are normal in size. PELVIS: Pelvic Organs: 2.6 cm hypoattenuating lesion in the right adnexa, which may represent an ovarian cyst or cystic teratoma. Bladder: Unremarkable. Pelvic Nodes: No enlarged lymph nodes. Miscellaneous: No inguinal hernias are seen. Bones: No acute abnormality. Multifocal degenerative change. Redemonstrated , partially imaged hardware within the left femur. IMPRESSION: 1. No significant interval change of the chest. 2. Persistent cirrhotic changes of the liver with splenomegaly and ascites. 3. Interval development of a central mesenteric lymph node as detailed above, of uncertain clinical significance. Consider short-term (3-[address]) [address] follow-up to ensure decreasing size or resolution. Alternatively, consider PET-CT. 4. Persistent hypoattenuating lesion in the right adnexa, which demonstrates decreased size and may represent a cyst or cystic teratoma. Please refer to the dedicated ultrasound report. Dictated by: Victorino Azevedo M.D. on 09/30/2021 at 12:34 Approved by: Victorino Azevedo M.D. on 09/30/2021 at 14:05
[2021-09-30 10:19] LABS: BUN Creatinine Ratio 17.9 (6-22); Blood Urea Nitrogen 14 mg/dL (7-17); Calcium 11.4 mg/dL (8.4-10.2); Carbon Dioxide 26 mmol/L (22-32); Chloride 104 mmol/L (98-107); Estimated Glomerular Filt Rate > 60.0 mL/min (>60); Glucose 344 mg/dL (80-110); HEMOLYSIS < 15 (0-50); Potassium 3.6 mmol/L (3.4-5.1); Sodium 138 mmol/L (137-145)
== END ==
PROVIDERS: PCP Family Medicine; Referring Provider Internal Medicine; Visit Provider Internal Medicine
DX: C50.512 Malignant neoplasm of lower-outer quadrant of left female breast (principal); C79.51 Secondary malignant neoplasm of bone; N94.89 Other specified conditions associated with female genital organs and menstrual cycle; R93.89 Abnormal findings on diagnostic imaging of other specified body structures; N83.291 Other ovarian cyst, right side; R16.1 Splenomegaly, not elsewhere classified; N20.0 Calculus of kidney; K74.60 Unspecified cirrhosis of liver; R18.8 Other ascites; R59.0 Localized enlarged lymph nodes; Z17.0 Estrogen receptor positive status [ER+]
CPT/HCPCS: 36415; 71260; 74177; 76830; 76856; 78306; 80048; A9503; Q9967

== ENCOUNTER → 2021-12-22 10:26 | Outpatient (CLI) | payer OTHER, SELFPAY ==
[2020-11-18 18:59] VITALS: BMI 31.3
--- NOTE | 2021-12-22 | DI.MRI.S_ITS ---
PROCEDURE: MR HEAD/BRAIN WO/W CON INDICATIONS: 61-year-old female with metastatic breast cancer TECHNIQUE: Noncontrast axial T1 spin echo, axial T2 fast spin echo, sagittal and axial FLAIR, coronal T2 fast spin echo, axial gradient echo, axial diffusion and ADC through the brain. After the administration of contrast, axial and coronal 3D VIBE or T1 spin echo with fat saturation through the brain. COMPARISON: [facility], CT, CT HEAD/BRAIN W CON, 11/21/2020, 14:21. FINDINGS: Cerebrum, Cerebellum and Brainstem: Mild cerebral and cerebellar volume loss as well as mild multifocal hyperintensities in the deep and subcortical white matter present. The diffusion sequence is normal without evidence of acute infarct. No intracranial hemorrhage, mass lesion or midline shift. Basal cisterns and foramen magnum contain appropriate anatomy and vascular flow voids. No evidence of dural or leptomeningeal thickening. Ventricles: Appropriate in size and position. No hydrocephalus. Skull Base: The bony sella, pituitary gland and infundibulum unremarkable. Clivus and craniovertebral relationships are appropriate. Visualized portions of the seventh and eighth cranial nerve complexes and internal auditory canals are within normal limits. Scalp and Calvarium: The scalp is unremarkable. Underlying calvarium has an appropriate marrow signal. Paranasal Sinuses: Visualized portions of the paranasal sinuses are clear. Mastoids: Unremarkable as visualized. No mastoid effusion present. Orbits: The orbits, globes and ocular muscles are unremarkable other than a slightly asymmetric shape of the right orbital globe. IMPRESSION: Mild atrophy and chronic ischemic change without acute infarct, hemorrhage or mass lesion. Approved by: Sukhdev Pineda M.D. on 12/22/2021 at 13:16
== END ==
PROVIDERS: PCP Family Medicine; Referring Provider Internal Medicine; Visit Provider Internal Medicine
DX: C50.512 Malignant neoplasm of lower-outer quadrant of left female breast (principal); R51.9 Headache, unspecified; Z17.0 Estrogen receptor positive status [ER+]
CPT/HCPCS: 70553

== ENCOUNTER → 2022-02-01 10:17 | Outpatient (CLI) | payer OTHER, SELFPAY ==
[2020-11-18 18:59] VITALS: BMI 31.3
--- NOTE | 2022-02-01 | DI.NM.S_ITS ---
PROCEDURE: [place] BONE SCAN WHOLE BODY RADIOPHARMACEUTICAL: 20.0 mCi Tc-99m MDP IV. INDICATIONS: Malignant kymberly/lower-outer quadrant/left breast TECHNIQUE: Delayed whole-body scintigrams were obtained approximately 3-4 hours after intravenous injection of radiotracer. Anterior and posterior views were acquired from vertex to feet. COMPARISON: [facility], [place], [place] BONE SCAN WHOLE BODY, 09/30/2021, 14:05. [facility], CT, CT CHEST ABD PEL W CON, 02/01/2022, 11:41. FINDINGS: Increased radiotracer uptake involving the proximal left femur, distal left femoral metaphysis, right femoral neck, right femoral midshaft in the iliac bones bilaterally are not significantly changed compared September 30, 2021. Foci of increased uptake with linear configuration noted at the costochondral junctions of the left 4th, 5th and 6th ribs likely related to posttraumatic injury. Photopenia noted in the knees bilaterally likely related to arthroplasty prostheses. Relatively subtle radiotracer uptake identified cervical spine, thoracic spine, lumbar spine, shoulders, hips, ankles and mid feet compatible with osteoarthritis. No abnormal soft tissue uptake. Activity in the kidneys is normal and symmetric. IMPRESSION: Osseous metastatic lesions involving the bilateral femurs and bilateral iliac bones demonstrate no significant change compared to September 30, 2021. No new osseous metastatic lesions identified. Dictated by: Lili Hernandez MD, PhD on 02/01/2022 at 17:05 Approved by: Lili Hernandez MD, PhD on 02/01/2022 at 17:12
--- NOTE | 2022-02-01 12:08 | DI.CT.S_ITS ---
PROCEDURE: CT CHEST ABD PEL W CON INDICATIONS: Malignant kymberly/lower-outer quadrant/left breast TECHNIQUE: After the administration of oral and intravenous contrast, axial sections acquired from the supraclavicular neck to the pubic symphysis. Coronal and sagittal reformats were performed. For radiation dose reduction, the following was used: automated exposure control, adjustment of mA and/or kV according to patient size. COMPARISON:[facility], CT, CT CHEST ABD PEL W CON, 11/21/2020, 14:21. [facility], CT, CT CHEST ABD PEL W CON, 09/30/2021, 11:32. FINDINGS: Image quality: Excellent. CHEST: Lower Neck: No enlarged lymph nodes. Thyroid: Within normal limits. Axillae: No enlarged lymph nodes. Chest Wall: Redemonstrated left chest wall thickening with adjacent surgical clips, unchanged. Lungs and Airways: No consolidation or suspicious nodules. Persistent left upper lobe subpleural reticulation with pleural thickening/scarring, unchanged. Pleura: No pneumothorax or pleural effusions. Heart: Heart size is normal. No pericardial effusion. Thoracic Vessels: The aorta and pulmonary arteries demonstrate normal size. A right opal catheter is seen with tip in SVC. Mediastinum and Giuliana: No enlarged lymph nodes. Esophagus: No wall thickening. No substantial hiatal hernia. ABDOMEN: Liver: Nodular contour, compatible with cirrhosis Gallbladder: Mild wall thickening with pericholecystic fluid, which may be secondary to ascites. Biliary ducts: Unremarkable. Pancreas: Unremarkable. Spleen: Normal contour, measuring up to 16.8 cm. Adrenal Glands: Unremarkable. Kidneys and Ureters: Symmetric enhancement without evidence of obstructive uropathy. Bilateral nephrolithiasis with largest calculus measuring 1.4 cm in the right interpolar region. Bilateral cortical hypoattenuating lesions are again seen, most consistent with cysts. Stomach and Bowel: No evidence of intestinal obstruction. Wall thickening of the cecum/ascending colon, concerning for colitis. Moderate stool burden throughout the transverse/descending colon. The appendix appears normal. Peritoneum: Interval increased ascites, predominant in the right upper quadrant. No free air. Ventral Wall: No hernia. Abdominal Nodes: Redemonstrated central mesenteric node (2-80), measuring up to 2.1 cm. Vessels: Aorta and inferior vena cava are normal in size. PELVIS: Pelvic Organs: Prominent vessels in the adnexa, which can be seen in the setting of pelvic congestion. Persistent hypoattenuating lesion in the right adnexa with punctate calcification, which may reflect an ovarian cyst or cystic teratoma. Bladder: Unremarkable. Pelvic Nodes: No enlarged lymph nodes. Miscellaneous: No inguinal hernias are seen. 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 Bones: Multifocal degenerative change. Redemonstrated, partially imaged hardware in the left femur. 1 cm lucency in T12, which may reflect a hemangioma, unchanged. 1 cm sclerotic focus in the left posterior iliac bone, which may reflect a bone island, unchanged. IMPRESSION: 1. No significant interval change of the chest. 2. Persistent cirrhotic changes of the liver with splenomegaly and increased ascites. 3. Slightly enlarged central mesenteric mass as detailed above. 4. Wall thickening of the cecum/ascending colon, concerning for colitis. An infectious or inflammatory processes favored. 5. Mild gallbladder wall thickening with pericholecystic fluid, which may be secondary to ascites. Dictated by: Victorino Azevedo M.D. on 02/01/2022 at 14:54 Approved by: Victorino Azevedo M.D. on 02/01/2022 at 15:11
== END ==
PROVIDERS: PCP Family Medicine; Referring Provider Internal Medicine; Visit Provider Internal Medicine
DX: C50.512 Malignant neoplasm of lower-outer quadrant of left female breast (principal); C50.911 Malignant neoplasm of unspecified site of right female breast; N94.89 Other specified conditions associated with female genital organs and menstrual cycle; R18.8 Other ascites; R16.1 Splenomegaly, not elsewhere classified; Z17.0 Estrogen receptor positive status [ER+]
CPT/HCPCS: 71260; 74177; 78306; A9503

== ENCOUNTER → 2022-07-29 09:15 | Outpatient (CLI) | payer OTHER, SELFPAY ==
[2020-11-18 18:59] VITALS: BMI 31.3
--- NOTE | 2022-07-29 | DI.NM.S_ITS ---
PROCEDURE: [place] BONE SCAN WHOLE BODY RADIOPHARMACEUTICAL: 21.1 mCi Tc-99m MDP IV. INDICATIONS: BREAST CANCER TECHNIQUE: Delayed whole-body scintigrams were obtained approximately 3-4 hours after intravenous injection of radiotracer. Anterior and posterior views were acquired from vertex to feet. COMPARISON: MR, MR HIP LT WO CON, 11/18/2020, 7:47. [place] BONE SCAN WHOLE BODY, 11/19/2020, 11:56. [facility], CT, CT CHEST ABD PEL W CON, 02/01/2022, 11:41. [facility] [place] BONE SCAN WHOLE BODY, 09/30/2021, 14:05. [facility] [place] BONE SCAN WHOLE BODY, 02/01/2022, 15:58. FINDINGS: There are foci of increased uptake involving proximal left femur and the mid right femoral shaft, iliac bones bilaterally adjacent to the sacroiliac joints, unchanged. Anterior left rib lesions are decreased in size, likely secondary to old fractures. No lesions are identified in skull, sternum, clavicles, scapulae. There is low level increased uptake in cervical, thoracic and lumbar spine with distribution indistinguishable from degenerative disc and facet disease; early metastasis to spine could be obscured by degenerative changes. There are foci of increased periarticular activity involving, compatible with degenerative/arthritic changes. IMPRESSION: Stable bone scan. There are known metastatic bone lesions in femurs bilaterally and iliac bones bilaterally, unchanged. Dictated by: Krysta Tierney M.D. on 07/29/2022 at 17:55 Approved by: Krysta Tierney M.D. on 07/29/2022 at 18:01
== END ==
PROVIDERS: PCP Family Medicine; Referring Provider Internal Medicine; Visit Provider Internal Medicine
DX: C50.512 Malignant neoplasm of lower-outer quadrant of left female breast (principal); C79.51 Secondary malignant neoplasm of bone; Z17.0 Estrogen receptor positive status [ER+]
CPT/HCPCS: 78306; A9503

== ENCOUNTER → 2022-08-24 07:03 | Outpatient (CLI) | payer OTHER, SELFPAY ==
[2020-11-18 18:59] VITALS: BMI 31.3
[2022-08-24 21:17] LABS: COVID19 - ORCAS (NP or Nasal) Negative (Negative)
== END ==
PROVIDERS: PCP Family Medicine; Visit Provider Family Medicine
DX: Z20.822 Contact with and (suspected) exposure to COVID-19 (principal); Z01.812 Encounter for preprocedural laboratory examination
CPT/HCPCS: C9803; U0003

== ENCOUNTER → 2022-10-28 09:25 | Outpatient (CLI) | payer OTHER, SELFPAY ==
[2020-11-18 18:59] VITALS: BMI 31.3
--- NOTE | 2022-10-28 | DI.NM.S_ITS ---
PROCEDURE: [place] BONE SCAN WHOLE BODY RADIOPHARMACEUTICAL: 22.5 mCi Tc-99m MDP IV. INDICATIONS: BREAST CANCER WITH BONE METS TECHNIQUE: Delayed whole-body scintigrams were obtained approximately 3-4 hours after intravenous injection of radiotracer. Anterior and posterior views were acquired from vertex to feet. Additional left and right oblique views of the thoracic cage and pelvis were obtained. COMPARISON: [facility], CR, XR FEMUR LT 1V, 11/18/2020, 13:40. MR, MR HIP LT WO CON, 11/18/2020, 7:47. [facility], CR, XR FEMUR LT MIN 2V, 11/18/2020, 14:49. [place] BONE SCAN WHOLE BODY, 11/19/2020, 11:56. [place] BONE SCAN WHOLE BODY, 09/30/2021, 14:05. [place] BONE SCAN WHOLE BODY, 07/29/2022, 11:33. [place] BONE SCAN WHOLE BODY, 02/01/2022, 15:58. [facility], CT, CT CHEST ABD PEL W CON, 02/01/2022, 11:41. FINDINGS: Again noted are foci of increased activity in the left 4th, 5th, and 6th ribs, most likely secondary to rib fractures. Foci of increased activity are present in anterior superior iliac spines bilaterally, the iliac bones adjacent to the sacroiliac joints bilaterally, proximal femurs bilaterally and both femoral shafts, compatible with osseous metastasis. The left distal femoral shaft lesions are more conspicuous. No definitive lesions are identified in skull, sternum, clavicles and scapulae. There are foci of mildly increased increased uptake in cervical, thoracic and lumbar spine most likely secondary to degenerative disc and facet disease; early metastasis to spine could be obscured by degenerative changes. There are foci of increased periarticular activity involving shoulders and left knee, compatible with degenerative/arthritic changes. IMPRESSION: 1. There are multiple foci of abnormal uptake involving pelvis and femurs bilaterally as described, consistent with osseous metastasis. The left distal femoral shaft lesions appear more conspicuous when compared to the last exam. The last left femur x-ray was from 11/18/2020, which showed postsurgical changes with an intramedullary key. Recommend repeat x-ray for correlation. 2. Multiple left anterior rib fractures. Dictated by: Krysta Tierney M.D. on 10/31/2022 at 10:36 Approved by: Krysta Tierney M.D. on 10/31/2022 at 10:56
== END ==
PROVIDERS: PCP Family Medicine; Referring Provider Internal Medicine; Visit Provider Internal Medicine
DX: C50.512 Malignant neoplasm of lower-outer quadrant of left female breast (principal); C79.51 Secondary malignant neoplasm of bone; S22.42XA Multiple fractures of ribs, left side, initial encounter for closed fracture; Z17.0 Estrogen receptor positive status [ER+]
CPT/HCPCS: 78306; A9503

== ENCOUNTER → 2022-11-09 10:02 | Outpatient (CLI) | payer OTHER, SELFPAY ==
[2020-11-18 18:59] VITALS: BMI 31.3
--- NOTE | 2022-11-09 | DI.RAD.S_ITS ---
PROCEDURE: [place] CATHETER PATENCY COMPARISON: None. INDICATIONS: PORT BLOCKAGE FINDINGS: After injection of small amount of Isovue contrast via patient's existing chemo port over right chest wall, there is occlusion of the distal internal jugular vein/upper SVC with suggestion of extravasated contrast accumulating in lateral right lower neck soft tissue. IMPRESSION: Suggestion of occluded lower right internal jugular vein/SVC as above. Dictated by: Jigar Knott M.D. on 11/09/2022 at 11:17 Approved by: Jigar Knott M.D. on 11/09/2022 at 11:19
--- NOTE | 2022-11-09 10:34 | PC.NURSE ---
[facility] dye study using sterile technique hard to flush. Once study done port de-accessed, flushed with heparin 5cc/mil used 2cc. Band aid used over site. No other problems noted, pt home.
== END ==
PROVIDERS: PCP Family Medicine; Referring Provider Internal Medicine; Visit Provider Internal Medicine
DX: T82.594A Other mechanical complication of infusion catheter, initial encounter (principal)
CPT/HCPCS: 76000

== ENCOUNTER → 2023-03-15 11:19 | Outpatient (CLI) | payer OTHER, SELFPAY ==
[2020-11-18 18:59] VITALS: BMI 31.3
--- NOTE | 2023-03-15 | DI.NM.S_ITS ---
PROCEDURE: [place] BONE SCAN WHOLE BODY RADIOPHARMACEUTICAL: 19 point mCi Tc-99m MDP IV. INDICATIONS: Malignant neoplasm of left breast TECHNIQUE: Delayed whole-body scintigrams were obtained approximately 3-4 hours after intravenous injection of radiotracer. Anterior and posterior views were acquired from vertex to feet. COMPARISON: [place], [place] BONE SCAN WHOLE BODY, 11/19/2020, 11:56. [place] BONE SCAN WHOLE BODY, 09/30/2021, 14:05. [place], [place] BONE SCAN WHOLE BODY, 09/30/2021, 14:05. [place] BONE SCAN WHOLE BODY, 07/29/2022, 11:33. [place] BONE SCAN WHOLE BODY, 02/01/2022, 15:58. CT, CT CHEST ABD PEL W CON, 02/01/2022, 11:41. FINDINGS: The proximal left femoral uptake and the right femoral shaft uptake are less conspicuous. Symmetrically increased activity is noted in the anterior iliac crest bilaterally, unchanged. Foci of mildly increased activity are seen in the anterior aspect of the 5th, 6th and 7th ribs, unchanged. No new lesions. No lesions are identified in skull, sternum, clavicles or scapulae. There are foci of increased uptake in cervical, thoracic and lumbar spine most likely secondary to degenerative disc and facet disease; early metastasis to spine could be obscured by degenerative changes. There are foci of increased periarticular activity compatible with degenerative/arthritic changes. Note is made of bilateral total knee arthroplasty. IMPRESSION: Stable or slightly slightly improved bone scan. Dictated by: Krysta Tierney M.D. on 03/15/2023 at 15:27 Approved by: Krysta Tierney M.D. on 03/15/2023 at 16:28
== END ==
PROVIDERS: PCP Family Medicine; Referring Provider Internal Medicine; Visit Provider Internal Medicine
DX: C50.912 Malignant neoplasm of unspecified site of left female breast (principal)
CPT/HCPCS: 78306; A9503

== ENCOUNTER 2023-08-11 09:40 | Emergency (ER) | payer OTHER, SELFPAY ==
[2020-11-18 18:59] VITALS: BMI 31.3
[2023-08-11 09:44] VITALS: BP 161/83; PULSE 78; RESP 15; TEMP 36.6; O2SAT 99; BMI 24.2
--- NOTE | 2023-08-11 09:50 | DI.CT.S_ITS ---
PROCEDURE: CT FACIAL BONES WO CON INDICATIONS: head injury,ringing in ears and pain TECHNIQUE: Noncontrast 2.5 mm thick axial images acquired from the mandible through the frontal sinuses, with coronal and sagittal reformatting. For radiation dose reduction, the following was used: automated exposure control, adjustment of mA and/or kV according to patient size. COMPARISON: [facility], CT, CT HEAD/BRAIN WO CON, 08/11/2023, 10:05. FINDINGS: Image quality: Excellent. Bones and teeth: Orbital gould are intact. Sinus gould show no fracture or deformity. Nasal bones and septum are intact. Visualized portions of the mandible demonstrate no fractures or subluxation. Zygomatic arches are intact. Pterygoid plates are intact. Visualized portions of the skull base and auditory canals are intact. Sinuses: Paranasal sinuses are aerated, without fluid levels, mucosal thickening, or mucoceles. Mastoid air cells are aerated. Soft tissues: No edema, masses, or fluid collections. No enlarged lymph nodes. No soft tissue lacerations or debris. Vascular: Visualized vascular structures appear normal in the absence of contrast. Bony vascular foramina and canals are intact. IMPRESSION: No facial bone fracture. Note: Case discussed by telephone with [facility] at 9:39 a.m. [place] time on August 11, 2023. Dictated by: Lio Hartman M.D. on 08/11/2023 at 9:42 Approved by: Lio Hartman M.D. on 08/11/2023 at 9:43
--- NOTE | 2023-08-11 09:50 | DI.CT.S_ITS ---
PROCEDURE: CT HEAD/BRAIN WO CON INDICATIONS: head injury, ringing in ears and pain TECHNIQUE: Noncontrast 4.5 mm thick angled axial sections acquired from the foramen magnum to the vertex, with coronal and sagittal reformats. For radiation dose reduction, the following was used: automated exposure control, adjustment of mA and/or kV according to patient size. COMPARISON: [facility], MR, MR HEAD/BRAIN WO/W CON, 12/22/2021, 10:29. [facility], CT, CT HEAD/BRAIN W CON, 11/21/2020, 14:21. [facility], CT, CT FACIAL BONES WO CON, 08/11/2023, 10:05. FINDINGS: Image quality: Excellent. CSF spaces: Basal cisterns are patent. No extra-axial fluid collections. The ventricles are symmetric in size and shape. Brain: There are a few areas of asymmetric hyperdensity seen involving the left basal ganglia, as seen on series 7, image 21. Apparent calcification can be seen along the surface of the brain right posterior frontal region, as on series 3, image 28. No intracranial masses. There is cerebral volume loss for age, with resultant ventricular and sulcal prominence. There are periventricular and deep white matter chronic small vessel ischemic changes. There is intracranial internal carotid artery atherosclerosis. Skull and face: Calvarium and visualized facial bones appear intact, without suspicious lesions. Sinuses: Visualized sinuses and mastoids are clear. IMPRESSION: There are a few areas of asymmetric hyperdensity seen involving the left basal ganglia. Differential diagnosis includes parenchymal hemorrhage. However, posttraumatic parenchymal hemorrhage within these locations would be unusual. Differential diagnosis includes asymmetric calcification. Note: Case discussed by telephone with radioulnar at 9:39 a.m. [place] time on August 11, 2023. Dictated by: Lio Hartman M.D. on 08/11/2023 at 9:33 Approved by: Lio Hartman M.D. on 08/11/2023 at 9:42
--- NOTE | 2023-08-11 11:27 | PC.NURSE ---
Pt had a fall 08/02/23,hit head on bathtub. Pt had positive loc and does not take blood thinners. pt here today for head pain and ringing in ears. Pts eyes are baseline for pt,is not able to open right eyelid compared to left eyelid. Pt is alert/oriented
--- NOTE | 2023-08-11 11:36 | DI.RAD.S_ITS ---
PROCEDURE: XR SHOULDER LT MIN 2V INDICATIONS: GLF, PAIN TECHNIQUE: 3 views of the shoulder were acquired. COMPARISON: None. FINDINGS: Bones: No fractures or dislocations. No suspicious bony lesions. Visualized ribs appear intact. Soft tissues: No suspicious soft tissue calcifications. Left IJ MediPort. Coarse interstitial markings throughout the visible lungs. IMPRESSION: Intact left shoulder pain Dictated by: Yohana Pelaez M.D. on 08/11/2023 at 12:46 Approved by: Yohana Pelaez M.D. on 08/11/2023 at 12:47
--- NOTE | 2023-08-11 11:37 | ED.FALL ---
HPI - Fall General Chief Complaint: Fall Stated Complaint: sent by [facility] fall T-9 Time Seen by Provider: 08/11/23 11:36 Source: patient Mode of arrival: Ambulatory History of Present Illness HPI Narrative: 63-year-old female presents for headache. Nine days ago patient had a slip and fall in the bathroom and she struck the left side of her head against the bathtub. She states at that time she passed out? for a couple of seconds?, but then recovered. She is not seen a doctor for this complaint until today. She went to the walk-in clinic, who referred her to the ER for evaluation. Patient is also reporting left shoulder pain from her fall. Has not taken any medications at home for symptoms. Denies numbness, weakness, tingling. She states that she feels like her ears are ?under water?. Related Data Home Medications Medication Instructions Recorded Confirmed hydrochlorothiazide 12.5 mg capsule 12.5 mg DAILY PRN Edema ##0 03/15/13 11/18/20 lisinopril 20 mg tablet 20 mg PO BID 11/18/20 11/18/20 methocarbamol 500 mg tablet 500 mg PO TID PRN Spasms 11/18/20 11/18/20 tramadol 50 mg tablet 50 mg PO Q6H PRN Pain (Scale Score 11/18/20 11/18/20 4-6) Previous Rx's Medication Instructions Recorded ferrous sulfate 325 mg (65 mg 325 mg PO DAILY #30 tabs 11/24/20 iron) tablet insulin glargine 100 unit/mL (3 20 unit (0.2 mL) SUBCUT BEDTIME #3 11/24/20 mL) subcutaneous pen (Lantus mL Solostar U-100 Insulin) magnesium oxide 400 mg (241.3 mg 400 mg PO BID #60 tabs 11/24/20 magnesium) tablet metformin 500 mg tablet 500 mg PO BID #60 tabs 11/24/20 oxycodone 5 mg tablet 5 - 10 mg PO Q6H PRN pain (scale 11/24/20 score 4-6) #50 tabs pen needle, diabetic 32 gauge x #30 ea 11/24/20 532 (BD Ultra-Fine [place] Pen Needle) Allergies Allergy/AdvReac Type Severity Reaction Status Date / Time No Known Drug Allergies Allergy Verified 09/29/23 09:44 Review of Systems Review of Systems Narrative: CONSTITUTIONAL- Denies: fever, chills, fatigue HEENT- Denies: sore throat, nosebleed, vision changes RESPIRATORY- Denies: shortness of breath, cough, wheezing CARDIAC- Denies: chest pain, edema, orthopnea GI- Denies: abdominal pain, nausea, vomiting, constipation, diarrhea - Denies: frequency, dysuria, hematuria, flank pain MSK-reports: Left shoulder pain Denies: extremity pain, extremity swelling, joint swelling SKIN- Denies: rash, itching, burn, swelling NEUROLOGICAL-reports: Headache Denies:numbness, weakness, dizziness PSYCHIATRIC- Denies: anxiety, depression, suicidal ideation, homicidal ideation Patient History Medical History Breast cancer Imbalance of muscle of eye Multiple lesions of metastatic malignancy Surgical History History of eye surgery History of lumpectomy History of total abdominal hysterectomy History of vascular access device Status post surgery (03/15/13) Family History Father No significant medical problems Mother Stroke Diabetes mellitus Daughter Diabetes mellitus Social History household members: spouse and children Smoking Status: Never smoker alcohol intake: current Smoking Status: Never smoker alcohol intake frequency: holidays/special occasions only Substance Use Type: does not use Exam Initial Vital Signs Initial Vital Signs: Vital Signs Temperature 97.9 F 08/11/23 09:44 Pulse Rate 78 08/11/23 09:44 Respiratory Rate 15 08/11/23 09:44 Blood Pressure 161/83 H 08/11/23 09:44 Pulse Oximetry 99 08/11/23 09:44 Oxygen Delivery Method Room Air 08/11/23 09:44 Const: Awake, alert, no acute distress, nontoxic appearing Eyes: PERRL, EOMI, strabismus (chronic per patient) ENT: Atraumatic, dentition normal, mucous membranes moist Cardiac: regular rate, regular rhythm RESP: unlabored, clear bilaterally, no wheezing GI: Atraumatic, soft, nontender, nondistended, no rebound, no guarding MSK: Atraumatic, full range of motion, pain with L shoulder movement Skin: Warm, Dry, intact, no rashes Neuro: AO x3, CN II-XII grossly intact, moves all extremities Psych: affect normal, mood normal, not suicidal, not homicidal Course Course Course Narrative: Persistent headache after trip and fall. Patient reports LOC but denies use of blood thinners. Patient has strabismus, this is chronic and at baseline for her. Orders Ordered: Discontinued Medications Oxycodone HCl (Oxycodone Ir 5 Mg Tablet) 5 mg PO NOW ONE Stop: 08/11/23 11:37 Last Admin: 08/11/23 11:45 Dose: 5 mg Documented By: CTS Reevaluation(s) Reevaluation #1: CT imaging shows findings that are likely chronic calcifications, however can not rule out micro hemorrhage. Images pushed to [facility] for neurosurgical consult. Reevaluation #2: Neurosurgery recommends repeat CT in 4 hours. If no change the patient can be discharged home. Other imaging negative for acute findings. Reevaluation #3: Repeat CT is unchanged, radiology states that the lack of change favors chronic calcifications. Patient is reassessed, resting comfortably in ED recliner. She was advised of all the results of her imaging. Recommended Tylenol or Motrin as needed for headache and to get plenty of hydration. ED return precautions discussed at bedside. Patient expressed understanding of the plan and is in agreement at this time. All questions answered at the time of discharge. Vital Signs Vital signs: Vital Signs - 8 hr 08/11/23 09:44 08/11/23 14:19 Temperature 97.9 F Pulse Rate 78 82 Respiratory Rate 15 Blood Pressure 161/83 H 139/78 Pulse Oximetry 99 98 Oxygen Delivery Method Room Air Room Air Discharge Plan Departure Patient Disposition: Home Clinical Impression: Head injury, Headache, Acute shoulder pain Instructions: DI for Headache Prescriptions: No Action hydrochlorothiazide 12.5 MG capsule 12.5 mg DAILY PRN (Reason: Edema) Qty: 0 lisinopril 20 mg Tablet 20 mg PO BID tramadol 50 mg Tablet 50 mg PO Q6H PRN (Reason: Pain (Scale Score 4-6)) methocarbamol 500 mg Tablet 500 mg PO TID PRN (Reason: Spasms) ferrous sulfate 325 mg (65 mg iron) Tablet 325 mg PO DAILY Qty: 30 0RF magnesium oxide 400 mg (241.3 mg magnesium) Tablet 400 mg PO BID Qty: 60 0RF Lantus Solostar U-100 Insulin 100 unit/mL (3 mL) Insulin Pen 20 unit SUBCUT BEDTIME Qty: 3 0RF Rx Instructions: adjust Lantus by 2 units every few days to achieve fasting AM glucose < 140 (DME) pen needle, diabetic [BD Ultra-Fine [place] Pen Needle] 32 gauge x 5/32 needle See Dose Instructions .ROUTE .MEDSUPPLY Qty: 30 0RF Dose Instruction: As directed Rx Instructions: As directed metformin 500 mg tablet 500 mg PO BID Qty: 60 0RF oxycodone 5 mg tablet 5 - 10 mg PO Q6H PRN (Reason: pain (scale score 4-6)) Qty: 50 0RF Referrals: Neville Davis MD [Primary Care Provider] - Stand Alone Forms: Patient Portal/API
[2023-08-11] MEDS: OXYCODONE IR 5 MG TABLET PO (11:45)
--- NOTE | 2023-08-11 13:38 | DI.CT.S_ITS ---
PROCEDURE: CT HEAD/BRAIN WO CON INDICATIONS: ABNORMAL SCAN REPEAT TECHNIQUE: Noncontrast 4.5 mm thick angled axial sections acquired from the foramen magnum to the vertex, with coronal and sagittal reformats. For radiation dose reduction, the following was used: automated exposure control, adjustment of mA and/or kV according to patient size. COMPARISON: [facility], CT, CT HEAD/BRAIN WO CON, 08/11/2023, 10:05. FINDINGS: Image quality: Excellent. CSF spaces: Basal cisterns are patent. No extra-axial fluid collections. Ventricles are normal in size and shape. Brain: No midline shift. No intracranial masses or suspected hemorrhage. The CT scanning performed earlier same day approximately 4 hours earlier had raise concern for 2 areas of possible hemorrhage on the right, and these are again seen and somewhat better visualized, with an appearance of deep white matter calcification as the underlying cause. Vargas-white matter interface is normal. Skull and face: Calvarium and visualized facial bones are intact, without suspicious lesions. Sinuses: Visualized sinuses and mastoids are clear. IMPRESSION: Given stability over time intracranial hemorrhage is not suspected and rather several small areas of deep white matter calcification appear present on the right as cause of areas of prior concern. Dictated by: Christos Moon M.D. on 08/11/2023 at 14:18 Approved by: Christos Moon M.D. on 08/11/2023 at 14:22
[2023-08-11 14:19] VITALS: BP 139/78; PULSE 82; O2SAT 98
== END 2023-08-11 14:34 | disposition home or self-care (01) ==
PROVIDERS: Emergency Provider Emergency Medicine; PCP Family Medicine
DX: S09.90XA Unspecified injury of head, initial encounter (principal); R51.9 Headache, unspecified; M25.512 Pain in left shoulder; W01.198A Fall on same level from slipping, tripping and stumbling with subsequent striking against other object, initial encounter
CPT/HCPCS: 70450; 70486; 73030; 99283